=== PATIENT | female | born 1950 | race Caucasian/White ===

== ENCOUNTER 2017-05-24 05:09 | Inpatient (IN) | payer MEDICARE, OTHER ==
[~2017-05-24] VITALS: Ht 172.7 cm; Wt 136.1 kg
[2017-05-24] MEDS ORDERED: PANTOPRAZOLE 40 MG VIAL ONE (05:25)
[2017-05-24] MEDS ORDERED: PANTOPRAZOLE 80 MG in IV NS 0.9% 500 ML IV ONE (05:30)
[2017-05-24] MEDS ORDERED: PANTOPRAZOLE 80 MG in IV NS 0.9% 100 ML IV ONE (05:30)
[2017-05-24] MEDS ORDERED: IV NS 0.9% 1,000 ML BAG IV ONE (05:30)
--- NOTE | 2017-05-24 05:30 | NUR ---
PT RECEIVED FROM [facility] VIA AMBULANCE C/O RECTAL BLEEDING X1 DAY X2 SEPERATE TIMES. PT IS A/O X4 ABLE TO MAKE NEEDS MET. NO SOB NOTED WITH ADEQUATE CHEST RISE/FALL. NO PAIN NOTED AT THIS TIME. WILL CONTINUE TO MONITOR FOR ANY CHANGES.
--- NOTE | 2017-05-24 05:40 | NUR ---
FIRST MATE AT BEDSIDE
[2017-05-24 05:41] LABS: BASOPHILS % (AUTO) 0.4 % (0.0-2.0); EOSINOPHILS # (AUTO) 0.3 /CMM (0.0-0.7); HEMATOCRIT 32 % (33-45); HEMOGLOBIN 9.8 g/dL (11.5-14.8); MEAN CORPUSCULAR HEMOGLOBIN 24 PG (26.0-33.0); MEAN CORPUSCULAR HGB CONC 30 g/dl (31.0-36.0); MEAN CORPUSCULAR VOLUME 80 fL (82-100); MONOCYTES # (AUTO) 0.5 /CMM (0.1-1.30); MONOCYTES % (AUTO) 5.4 % (2.0-12.0); NEUTROPHILS # (AUTO) 7.8 /CMM (1.8-8.9); NEUTROPHILS % (AUTO) 81.2 % (43.0-81.0); PLATELET COUNT (AUTO) 309 /CMM (150-450); RDW COEFFICIENT OF VARIATION 16.3 (11.5-15.0); RED BLOOD CELL COUNT(AUTO) 4.05 MIL/uL (4.0-5.2); WHITE BLOOD COUNT (AUTO) 9.6 K/uL (4.3-11.0)
[2017-05-24 05:50] LABS: ALANINE AMINOTRANSFERASE 32 U/L (12-78); ALBUMIN 2.6 g/dL (3.4-5.0); ALKALINE PHOSPHATASE 115 U/L (46-116); ASPARTATE AMINOTRANSFERASE 19 U/L (15-37); BILIRUBIN,DIRECT 0.1 mg/dL (0.0-0.2); BILIRUBIN,TOTAL 0.2 mg/dL (0.2-1.0); CALCIUM, SERUM 8.7 mg/dL (8.5-10.1); CHLORIDE 96 mmol/L (98-107); CREATININE 0.4 mg/dL (0.6-1.3); GLUCOSE 109 mg/dL (74-106); LIPASE 59 U/L (73-393); POTASSIUM 4.3 mmol/L (3.5-5.1); SODIUM SERUM 138 mmol/L (136-145); TOTAL PROTEIN, SERUM 7.5 g/dL (6.4-8.2); UREA NITROGEN, BLOOD 11 mg/dL (7-18)
[2017-05-24 05:51] LABS: INR 0.92 (0.87-1.13); PROTHROMBIN TIME 9.6 SECS (9.5-12.7)
[2017-05-24 05:52] LABS: TROPONIN I < 0.017 ng/mL (0.00-0.056)
--- NOTE | 2017-05-24 06:03 | NUR ---
PT IS IN STABLE CONDITION. RECEIVING IV MEDICATIONS
--- NOTE | 2017-05-24 06:19 | NUR ---
TELE [id number]
[2017-05-24 06:56] LABS: EOSINOPHILS % (MANUAL) 5 % (0-4); LYMPHOCYTES % (MANUAL) 9 % (16-48); MONOCYTES % (MANUAL) 3 % (0-11.0); NEUTROPHILS % (MANUAL) 83 (42-76)
--- NOTE | 2017-05-24 07:54 | NUR ---
REPORT GIVEN TO ALLIE LANE FOR TELE 307.
[2017-05-24] MEDS ORDERED: BISA10SU8 RC (08:21)
[2017-05-24] MEDS ORDERED: POTA20TA83 PO (08:21)
[2017-05-24] MEDS ORDERED: MULT-447 PO (08:21)
[2017-05-24] MEDS ORDERED: PANT40TA2 PO (08:21)
[2017-05-24] MEDS ORDERED: AMIN30LI4 PO (08:21)
[2017-05-24] MEDS ORDERED: MAGN400O6 PO (08:21)
[2017-05-24] MEDS ORDERED: GABA-532 PO (08:21)
[2017-05-24] MEDS ORDERED: FERR-58 PO (08:21)
[2017-05-24] MEDS ORDERED: ACET-868 PO (08:21)
[2017-05-24] MEDS ORDERED: BUDE10.2 IH (08:21)
[2017-05-24] MEDS ORDERED: FURO20TA4 PO (08:21)
[2017-05-24] MEDS ORDERED: LEVO100T9 PO (08:21)
[2017-05-24] MEDS ORDERED: TRAM50TA2 PO (08:21)
[2017-05-24] MEDS ORDERED: IPRA3AMP IH ×2 (08:21)
[2017-05-24] MEDS ORDERED: DOCU-141 PO (08:21)
[2017-05-24] MEDS ORDERED: CITA20TA11 PO (08:21)
[2017-05-24] MEDS ORDERED: NA P133E RC (08:21)
[2017-05-24] MEDS ORDERED: LORA10TA7 PO (08:21)
[2017-05-24] MEDS ORDERED: CALC-7 PO (08:21)
[2017-05-24] MEDS ORDERED: HYDR-552 PO (08:21)
[2017-05-24 08:45] VITALS: BP 108/49
--- NOTE | 2017-05-24 09:30 | NUR ---
RN NOTES INITIAL; PATIENT RECEIVED FROM ER AT 08:45. PATIENT AOX2, NONLABORED BREATHING ON 3L. NO SIGNS OF DISTRESS. PATIENT DENIES ABDOMINAL PAIN AT THE MOMENT. NO FACIAL GRIMACING NOTED. PATIENT DENIES DIZZINESS, DENIES HEADACHES, PROTONIX IV STARTED IN ER RUNNING AT THE MOMENT, IV SITE ON RIGHT AC, 18 PATENT AND INTACT. DIAPER CHANGED. NO SIGNS OF BLEEDING IN URINE OR STOOLS. PATIENT KEPT NPO. WILL CONTINUE TO MONITOR
--- NOTE | 2017-05-24 09:30 | NUR ---
RN NOTES INITIAL; PATIENT RECEIVED FROM ER AT 08:45. PATIENT AOX2, NONLABORED BREATHING ON 3L. NO SIGNS OF DISTRESS. PATIENT DENIES ABDOMINAL PAIN AT THE MOMENT. NO FACIAL GRIMACING NOTED. PATIENT DENIES DIZZINESS, DENIES HEADACHES, PROTONIX IV STARTED IN ER RUNNING AT THE MOMENT AT 52 ML/HOUR, SPOKE TO ASH FROM PHARMACY REGARDING X1 ORDER STARTED IN ER. IV SITE ON RIGHT AC, 18 PATENT AND INTACT. DIAPER CHANGED. NO SIGNS OF BLEEDING IN URINE OR STOOLS. PATIENT KEPT NPO. WILL CONTINUE TO MONITOR
[2017-05-24 13:38] VITALS: BP 125/65
--- NOTE | 2017-05-24 15:18 | NUR ---
RN NOTES: PATIENT HAS SCARS/ REDNESS ON BOTTOM/SACRAL AREA OF WHAT LOOKS LIKE "OLD RASH" ACCORDING TO PATIENT.SLIGHT BUMPS NOTED, PATIENT STATES THAT IT ITCHES SOMETIMES. HOWEVER, NO OOZING NOTED. DR CHRISTIANSEN NOTIFIED. IV HYDRATION OF 80 ML/HOUR OF NORMAL SALINE ORDERED BY DR CHRISTIANSEN. ACCUCHECKS ORDERED, PATIENT HAS HISTORY OF DIABETES, PATIENT CURRENTLY NPO PATIENT STATES THAT SHE DOES NOT RECEIVE INSULIN AND REFUSES TO. BLOOD SUGAR TO BE MONITORED
--- NOTE | 2017-05-24 15:18 | NUR ---
RN NOTES: PATIENT HAS SCARS/ REDNESS ON BOTTOM/SACRAL AREA OF WHAT LOOKS LIKE "OLD RASH" ACCORDING TO PATIENT.SLIGHT BUMPS NOTED, PATIENT STATES THAT IT ITCHES SOMETIMES. HOWEVER, NO OOZING NOTED. DR CHRISTIANSEN NOTIFIED. DR CHRISTIANSEN ALSO NOTIFIED OF CT OF ABDOMEN/PELVIS BEING DONE AND IMAGE RESULTING IV HYDRATION OF 80 ML/HOUR OF NORMAL SALINE ORDERED BY DR CHRISTIANSEN. ACCUCHECKS ORDERED, PATIENT HAS HISTORY OF DIABETES, PATIENT CURRENTLY NPO PATIENT STATES THAT SHE DOES NOT RECEIVE INSULIN AND REFUSES TO. BLOOD SUGAR TO BE MONITORED
[2017-05-24] MEDS ORDERED: IV NS 0.9% 1,000 ML BAG IV PRN (15:30)
[2017-05-24 16:00] VITALS: BP 128/59
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
[2017-05-24] MEDS ORDERED: Z GUARD REMEDY 2 OZ OINT TP PRN (16:30)
[2017-05-24] MEDS: IV NS 0.9% 1,000 ML IV PRN (16:47)
--- NOTE | 2017-05-24 17:27 | NUR ---
RN NOTES: CODE STATUS ORDERED PER PATIENT'S [facility]'S LEVEL OF RESUSCITATON DOCUMENT, SPOKE WITH THE PATIENT AND SHE CONFIRMED HER WISHES. BENEFITS AND RISKS EXPLAINED AT LENGTH. ACCORDING TO PATIENT AND DOCUMENT, "COMPRESSION OK, MEDS OK, AND DEFIB OK, AND ASSISTED VENTILATION ARE OK" ALSO "NO INTUBATION , NO TUBE FEEDINGS" WELL DR CHRISTIANSEN ORDERED TO ORDER THE CODE STATUS
[2017-05-24] MEDS ORDERED: BLOOD SUGAR DIAGNOSTIC 1 EACH STRIP IN SCH (17:30)
--- NOTE | 2017-05-24 18:39 | NUR ---
RN NOTES CLOSING PATIENT RESTING IN BED. AO 2-3. NO SIGNS OF DISTRESS NOTED. NONLABORED BREATHING NOTED ON 3L NASAL CANNULA. PATIENT DENIES PAIN. NO FACIAL GRIMACING NOTED. IV SITE PATENT AND INTACT, FLUID RUNNING PER MD ORDERS. PATIENT DENIES DIZZINESS, HEADACHES. DENIES ABDOMINAL PAIN. NO DIARRHEA NOTED SINCE ADMISSION ON UNIT. A SCANT AMOUNT OF STOOL WAS NOTED WHEN CLEANING PATIENT. PATIENT ABLE TO PASS GAS, HYPOACTIVE BOWEL SOUNDS NOTED ON ABDOMEN. NO NAUSEA OR VOMITTING NOTED. DURING SHIFT, PATIENT HELPED TO TURNED AND REPOSITION EVERY 2 HOURS, SKIN KEPT CLEAN AND DRY. BED IN LOWEST LOCKED POSITION. CALL LIGHT WITHIN REACH. MARBIN RT NOTIFIED OF BREATHING TREATMENT, SPOKE TO PHARMACY, THEY WILL BE SENDING IT NOW TO THE FLOOR. WILL ENDORSE TO NEXT SHIFT
[2017-05-24] MEDS: BUDESONIDE RESPULE INH 0.25 MG/2 ML AMPUL.NEB NEB SCH (19:27)
--- NOTE | 2017-05-24 19:30 | NUR ---
MS/RN RECEIVE PATIENT DOZING INTERMITTENTLY COMFORTABLE, NO DISTRESS NOTED, CALL LIGHT IN REACH. WILL MONITOR.,
[2017-05-24 20:00] VITALS: BP 112/67
--- NOTE | 2017-05-24 20:42 | NUR ---
MS/RN IV KEEPS ON BEEPING, PATIENT UNABLE TO KEEP ARM STRAIGHT. INSERTED NEW IV AT RT. F/A.
[2017-05-25] MEDS: BLOOD SUGAR DIAGNOSTIC 1 EACH STRIP IN SCH ×5 (01:18→23:53)
[2017-05-25] MEDS: IV NS 0.9% 1,000 ML IV PRN ×2 (05:52→17:07)
--- NOTE | 2017-05-25 06:01 | NUR ---
MS/RN PATIENT STILL SLEEPING, EASILY AROUSABLE, APPEAR COMFORTABLE, NO DISTRESS NOTED, ALL NEEDS ATTENDED AT THIS TIME. WILL CONTINUE TO MONITOR.
[2017-05-25 06:37] LABS: BASOPHILS % (AUTO) 0.4 % (0.0-2.0); EOSINOPHILS # (AUTO) 0.2 /CMM (0.0-0.7); EOSINOPHILS % (AUTO) 1.9 % (0.0-6.0); HEMATOCRIT 30 % (33-45); HEMOGLOBIN 9.4 g/dL (11.5-14.8); LYMPHOCYTES # (AUTO) 0.7 /CMM (0.8-4.8); LYMPHOCYTES % (AUTO) 7.7 % (20.0-44.0); MEAN CORPUSCULAR HEMOGLOBIN 25 PG (26.0-33.0); MEAN CORPUSCULAR HGB CONC 31 g/dl (31.0-36.0); MEAN CORPUSCULAR VOLUME 80 fL (82-100); MONOCYTES # (AUTO) 0.5 /CMM (0.1-1.30); MONOCYTES % (AUTO) 5.2 % (2.0-12.0); NEUTROPHILS # (AUTO) 8.2 /CMM (1.8-8.9); NEUTROPHILS % (AUTO) 84.8 % (43.0-81.0); PLATELET COUNT (AUTO) 279 /CMM (150-450); RDW COEFFICIENT OF VARIATION 16.1 (11.5-15.0); RED BLOOD CELL COUNT(AUTO) 3.74 MIL/uL (4.0-5.2); WHITE BLOOD COUNT (AUTO) 9.6 K/uL (4.3-11.0)
[2017-05-25 06:55] LABS: CALCIUM, SERUM 8.3 mg/dL (8.5-10.1); CREATININE 0.3 mg/dL (0.6-1.3); PHOSPHORUS 3.3 mg/dL (2.5-4.9)
--- NOTE | 2017-05-25 07:15 | NUR ---
RN NOTES PATIENT RESTING IN BED. AOX2 . IV SITE PATENT AND INTACT. DENIES PAIN. NO FACIAL GRIMACING NOTED. NONLABORED BREATHING ON 3L. BED IN LOWEST LOCKED POSITION WITH CALL LIGHT IN REACH. WILL CONTINUE TO MONITOR
[2017-05-25 08:00] VITALS: BP 150/69
[2017-05-25] MEDS: BUDESONIDE RESPULE INH 0.25 MG/2 ML AMPUL.NEB NEB SCH ×2 (08:08→15:46)
[2017-05-25 16:00] VITALS: BP 160/77
--- NOTE | 2017-05-25 16:39 | NUR ---
RN NOTES: DR COLLAZO CAME AND ASSESSED PATIENT. ORDERED TO HAVE PATIENT EATING TODAY. HE ORDERED BISACODYL 5 MG, 4 TIMES, ON 05/26/17. WELL GOLYTELY ON 05/26/17 FOR A BOWEL PREP FOR A POSSIBLE COLONOSCOPY ON Friday05/27/17
[2017-05-25 17:00] VITALS: BP 128/72
--- NOTE | 2017-05-25 19:25 | NUR ---
RN NOTES PATIENT RESTING IN BED. AOX2-3 . IV SITE PATENT AND INTACT. DENIES PAIN. NO FACIAL GRIMACING NOTED. NONLABORED BREATHING ON 3L. BED IN LOWEST LOCKED POSITION WITH CALL LIGHT IN REACH. DURING SHIFT, PATIENT SEEN BY DR CHRSITIANSEN AND DR COLLAZO. PATIENT DENIED SOB, SPO2 WNL, PATIENT EDUCATED ON USAGE OF PRN BREATHING TREATMENT, PATIENT REFUSED. BENEFITS AND RISKS EXPLAINED. CONSENT OBTAINED FOR COLONOSCOPY. PATIENT STATES THAT SHE HAS HAD THIS PROCEDURE BEFORE, PREP DISCUSSED WITH HER, PATIENT VERBALIZED UNDERSTANDING. PATIENT SIGNED CONSENT. PATIENT STATES THAT SHE IS THE RESPONSIBLE [employer] FOR HERSELF. PATIENT ATE DINNER WITH NO DIFFICULTY SWALLOWING, NO NAUSEA NO VOMITTING. ENDORSED TO NEXT SHIFT
--- NOTE | 2017-05-25 19:30 | NUR ---
RN OPENING NOTES PATIENT IS SLEEPING IN BED, ALERT AND ORIENTED X3. VS STABLE. NO SOB NOTED. RESPIRATIONS EVEN AND UNLABORED. NO C/O PAIN AT THIS TIME. PATIENT IS HAVING COLONOSCOPY MAY 27, CONSENT OBTAINED AND SIGNED. IV ACCESS ON RFA PATENT AND INTACT, INFUSING NS AT 80 ML/HR. NO REDNESS OR INFILTRATION NOTED. BED IN LOW AND LOCKED POSITION, SIDE RAILS X2. CALL LIGHT WITHIN EASY REACH. WILL CONTINUE TO MONITOR AND ASSESS DURING THE SHIFT.
[2017-05-25 20:00] VITALS: BP 109/77
[2017-05-26] MEDS: IV NS 0.9% 1,000 ML IV PRN ×2 (05:38→18:32)
[2017-05-26] MEDS: BLOOD SUGAR DIAGNOSTIC 1 EACH STRIP IN SCH ×3 (05:46→17:05)
[2017-05-26 06:50] LABS: EOSINOPHILS # (AUTO) 0.3 /CMM (0.0-0.7); EOSINOPHILS % (AUTO) 2.8 % (0.0-6.0); HEMATOCRIT 29 % (33-45); HEMOGLOBIN 8.9 g/dL (11.5-14.8); LYMPHOCYTES % (AUTO) 9.6 % (20.0-44.0); MEAN CORPUSCULAR HEMOGLOBIN 24 PG (26.0-33.0); MEAN CORPUSCULAR HGB CONC 31 g/dl (31.0-36.0); MEAN CORPUSCULAR VOLUME 79 fL (82-100); MONOCYTES # (AUTO) 0.5 /CMM (0.1-1.30); MONOCYTES % (AUTO) 4.9 % (2.0-12.0); NEUTROPHILS # (AUTO) 8.4 /CMM (1.8-8.9); NEUTROPHILS % (AUTO) 82.7 % (43.0-81.0); PLATELET COUNT (AUTO) 298 /CMM (150-450); RDW COEFFICIENT OF VARIATION 16.4 (11.5-15.0); RED BLOOD CELL COUNT(AUTO) 3.65 MIL/uL (4.0-5.2); WHITE BLOOD COUNT (AUTO) 10.1 K/uL (4.3-11.0)
--- NOTE | 2017-05-26 06:50 | NUR ---
RN CLOSING NOTES PATIENT IS SLEEPING IN BED, EASY TO AROUSE, ALERT AND ORIENTED X3. VS STABLE. NO SOB NOTED. RESPIRATIONS EVEN AND UNLABORED. NO C/O PAIN AT THIS TIME. PATIENT IS HAVING COLONOSCOPY MAY 27, CONSENT OBTAINED AND SIGNED. IV ACCESS ON RFA PATENT AND INTACT, INFUSING NS AT 80 ML/HR. NO REDNESS OR INFILTRATION NOTED. ALL NEEDS ARE MET AND MEDICATIONS GIVEN PER MD ORDER. BED IN LOW AND LOCKED POSITION, SIDE RAILS X2. CALL LIGHT WITHIN EASY REACH. WILL ENDORSE TO RN DAY SHIFT FOR LOLY.
[2017-05-26 07:19] LABS: CALCIUM, SERUM 8.2 mg/dL (8.5-10.1); CREATININE 0.3 mg/dL (0.6-1.3); MAGNESIUM 1.8 mg/dL (1.8-2.4); PHOSPHORUS 2.7 mg/dL (2.5-4.9); POTASSIUM 3.9 mmol/L (3.5-5.1)
--- NOTE | 2017-05-26 07:30 | NUR ---
RN MS NOTES PT IN BED, ASLEEP, EASY TO AROUSE, NO COMPLAINT OF PAIN OR ANY DISCOMFORT, RESPIRATIONS NORMAL AND NOT LABORED, PT TO START COLONOSCOPY PREP, PT INFORMED, PLAN OF CARE DISCUSSED WITH PT, VERBALIZED UNDERSTANDING, IV FLUIDS INFUSING WELL, KEPT COMFORTABLE.
[2017-05-26 08:00] VITALS: BP 145/69
[2017-05-26] MEDS ORDERED: PEG 3350/NA SULF,BICARB,CL/KCL 4,000 ML BOTTLE PO ONE (09:00)
[2017-05-26] MEDS: BUDESONIDE RESPULE INH 0.25 MG/2 ML AMPUL.NEB NEB SCH ×2 (09:00→18:32)
[2017-05-26] MEDS: BISACODYL (5 MG) 5 MG TABLET.DR PO SCH ×5 (09:05→17:05)
[2017-05-26] MEDS ORDERED: ACETAMINOPHEN 325 MG TABLET PO PRN (11:30)
[2017-05-26 12:00] VITALS: BP 136/72
--- NOTE | 2017-05-26 12:02 | NUR ---
RN MS NOTES PT IN BED, ALERT AND ORIENTED, TOLERATING COLONOSCOPY PREP WELL, CALL LIGHT WITHIN REACH, ASSISTED IN REPOSITIONING, NEEDS ATTENDED.
[2017-05-26 16:00] VITALS: BP 149/75
--- NOTE | 2017-05-26 18:39 | NUR ---
RN MS NOTES PT IN BED, AWAKE, ALERT AND ORIENTED, NO COMPLAINT OF PAIN AT THIS TIME, BREATHING PATTERN NORMAL, IV FLUIDS INFUSING WELL, CALL LIGHT WITHIN REACH, WITH ONGOING PREP FOR COLONOSCOPY, NOTED WITH WATERY STOOL WITH SOME BITS AND PIECES OF FOOD PARTICLES, PT COMPLIANT WITH PREP, PM CARE RENDERED, BREATHING TREATMENT GIVEN BY RT, PM CARE RENDERED, ALL NEEDS ATTENDED.
--- NOTE | 2017-05-26 19:30 | NUR ---
RN OPENING NOTES PATIENT IS IN BED, ALERT AND ORIENTEDX3. NO C/O PAIN AT THIS TIME, VS STABLE. NO SOB NOTED, RESPIRATIONS EVEN AND UNLABORED. IV ACCESS ON RAC PATENT AND INTACT, INFUSING NS AT 80 ML/HR, NO REDNESS OR INFILTRATION NOTED. COLONOSCOPY SCHEDULED 05/27/17, CONSENT SIGNED. WITH ONGOING PREPARATION FOR COLONOSCOPY, PT COMPLIANT WITH PREPARATION WELL. BED IN LOW AND LOCKED POSITION, SIDE RAILS X2. CALL LIGHT WITHIN EASY REACH. WILL CONTINUE TO MONITOR AND ASSESS DURING THE SHIFT.
[2017-05-26 20:00] VITALS: BP 138/70
[2017-05-27] MEDS: BLOOD SUGAR DIAGNOSTIC 1 EACH STRIP IN SCH ×4 (00:34→17:52)
[2017-05-27] MEDS: IV NS 0.9% 1,000 ML IV PRN (05:40)
--- NOTE | 2017-05-27 05:42 | NUR ---
RN NOTES PATIENT REFUSED TO DRAW THE BLOOD. CONTINUE TO MONITOR.
--- NOTE | 2017-05-27 06:49 | NUR ---
RN CLOSING NOTES PATIENT IS SLEEPING IN BED, EASY TO AROUSE, ALERT AND ORIENTEDX3. VS STABLE. NO SOB NOTED, RESPIRATIONS EVEN AND UNLABORED. IV ACCESS ON RAC PATENT AND INTACT, INFUSING NS AT 80 ML/HR, NO REDNESS OR INFILTRATION NOTED. COLONOSCOPY SCHEDULED 05/27/17, CONSENT SIGNED. PATIENT IS NPO SINCE MIDNIGHT. ALL NEEDS ARE MET, PATIENT REPOSITIONED. SKIN CLEAN AND DRY. BED IN LOW AND LOCKED POSITION, SIDE RAILS X2. CALL LIGHT WITHIN EASY REACH. WILL ENDORSE TO RN DAY SHIFT FOR LOLY.
[2017-05-27 08:00] VITALS: BP 166/79
--- NOTE | 2017-05-27 08:00 | NUR ---
RN NOTES RECEIVED PATIENT AT THIS TIME SLEEPING, AROUSE WHEN CALLED NAME OR TOUCHED, V/S TAKEN STABLE, NO ACUTE RESPIRATORY DISTRESS, PATIENT ON O2-3L NC, NPO, SCHEDULED EGD PROCEDURE AT 1000 O'CLOCK, IV LINE RIGHT FA INTACT NS AT 80 ML/HR. PATIENT REFUSED PAIN AT THIS TIME, CALL LIGHT WITHIN TO REACH, SAFETY PRECAUTION MAINTAINED ALL THE TIME. CONTINUED MONITORING.
[2017-05-27] MEDS: BUDESONIDE RESPULE INH 0.25 MG/2 ML AMPUL.NEB NEB SCH ×2 (08:04→18:02)
[2017-05-27] MEDS: IPRATROPIUM NEB FS 0.5 MG/2.5 ML AMPUL.NEB NEB PRN ×2 (08:07→18:03)
[2017-05-27] MEDS: ALBUTEROL FS 2.5 MG/0.5 ML VIAL.NEB NEB PRN ×2 (08:07→18:03)
--- NOTE | 2017-05-27 10:00 | NUR ---
RN NOTES PATIENT MIG TIG WELDER AT THIS TIME FOR EGD PROCEDURE.
[2017-05-27] MEDS ORDERED: ETOMIDATE 2 MG/ML VIAL ONE (11:12)
[2017-05-27] MEDS ORDERED: IV NS 0.9% 1,000 ML IV PRN (12:30)
--- NOTE | 2017-05-27 14:00 | NUR ---
RN NOTES PATIENT BACK FROM PROCEDURE, MD WRITTEN ORDER TAKEN AND CARRIED OUR, V/S TAKEN BP -161/82, P-88, R-17, 02 90, T-98.5, REGULAR DIET, NS AT 100 ML/HR, RESUME ORDERED MEDICATION. CA;LL LIGHT WITHIN TO REACH, SAFETY PRECAUTION MAINTAINED AL THE TIME, BS- 107MG/DL. CONTINUED MONITORING.
[2017-05-27 16:00] VITALS: BP 149/71
--- NOTE | 2017-05-27 17:52 | NUR ---
RN NOTES BS-112 MG/DL, PATIENT EATING AT THIS TIME , PATIENT GOING TO D/C BACK TO SNF. CONTINUED MONITORING.
--- NOTE | 2017-05-27 18:52 | NUR ---
RN NOTES PATIENT IN THE BED. NO ACUTE DISTRESS, NO RESPIRATORY DISTRESS AT THIS TIME., PATIENT GOING TO D/C [facility], V/S STABLE. NEEDS ATTENDED AND ANTICIPATED. SAFETY PRECAUTION MAINTAINED ALL THE TIME. ENDORSED ONCOMING NURSE FOR CONTINUATION OF CARE.
--- NOTE | 2017-05-27 19:15 | NUR ---
MS/RN NOTES RECEIVED PT. LYING IN BED. PT. IS AWAKE, ALERT AND ORIENTED X3. BREATHING EVEN AND UNLABORED ON 2LPM O2 VIA NC. NO SOB, RESPIRATORY DISTRESS OR COMPLAINTS OF PAIN NOTED AT THIS TIME. PT. WITH RIGHT AC 18 GAUGE IV SALINE LOCK PRESENT, PATENT AND INTACT. PT. WITH RIGHT FOREARM 22 GAUGE PERIPHERAL IV PRESENT, PATENT AND INTACT ADMINISTERING TO PT. NS @ 100ML/HR. PER DAYSHIFT NURSE PT. IS BEING DISCHARGED TONIGHT TO [facility], AWAITING PICKUP FROM AMBULANCE AT 1999. PER DAYSHIFT NURSE ALL PT. EXITCARE AND BELONGINGS LIST SIGNED, ORIGINAL PLACED IN CHART. BED LOCKED AND IN LOWEST POSITION, SIDE RAILS UP X3, CALL LIGHT WITHIN REACH, WILL CONTINUE TO MONITOR.
--- NOTE | 2017-05-27 19:30 | NUR ---
RN NOTES GIVEN REPORT [employer] ENGINEERING TECHNOLOGIST NAME VERONIQUE, PATIENT SIGN PAPERWORK.
[2017-05-27 20:00] VITALS: BP 145/72
--- NOTE | 2017-05-27 20:00 | NUR ---
MS/RN NOTES DISPATCHER ELECTRIC POWER RECEIVED CALL FROM AMBULANCE THAT THEY ARE RUNNING LATE, ETA 2100. PT. IS LYING IN BED, APPEARS COMFORTABLE AT THIS TIME, WILL CONTINUE TO MONITOR.
[2017-05-27 20:26] LABS: BASOPHILS % (AUTO) 0.2 % (0.0-2.0); CALCIUM, SERUM 8.1 mg/dL (8.5-10.1); CREATININE 0.4 mg/dL (0.6-1.3); EOSINOPHILS # (AUTO) 0.1 /CMM (0.0-0.7); EOSINOPHILS % (AUTO) 1.4 % (0.0-6.0); HEMATOCRIT 29 % (33-45); HEMOGLOBIN 9.2 g/dL (11.5-14.8); LYMPHOCYTES # (AUTO) 0.9 /CMM (0.8-4.8); LYMPHOCYTES % (AUTO) 8.4 % (20.0-44.0); MAGNESIUM 1.6 mg/dL (1.8-2.4); MEAN CORPUSCULAR HEMOGLOBIN 24 PG (26.0-33.0); MEAN CORPUSCULAR HGB CONC 32 g/dl (31.0-36.0); MEAN CORPUSCULAR VOLUME 78 fL (82-100); MONOCYTES # (AUTO) 0.8 /CMM (0.1-1.30); MONOCYTES % (AUTO) 7.3 % (2.0-12.0); NEUTROPHILS # (AUTO) 8.6 /CMM (1.8-8.9); NEUTROPHILS % (AUTO) 82.7 % (43.0-81.0); PHOSPHORUS 3.5 mg/dL (2.5-4.9); PLATELET COUNT (AUTO) 325 /CMM (150-450); POTASSIUM 3.3 mmol/L (3.5-5.1); RDW COEFFICIENT OF VARIATION 14.9 (11.5-15.0); RED BLOOD CELL COUNT(AUTO) 3.75 MIL/uL (4.0-5.2); WHITE BLOOD COUNT (AUTO) 10.4 K/uL (4.3-11.0)
--- NOTE | 2017-05-27 20:45 | NUR ---
MS/RN NOTES CALLED [facility] COLD MOLDING PRESS OPERATOR TO REPORT CRITICAL LAB VALUE: CO2 43, AND LOW ELECTROLYTES K 3.3 AND MG 1.6 PT. IS ON 2LPM O2 VIA NC, HISTORY OF COPD, NO SOB OR RESPIRATORY DISTRESS NOTED AT THIS TIME, VITAL SIGNS STABLE. PER [facility] COLD MOLDING PRESS OPERATOR SERVICE KAYLAN NAQVI IS COLD MOLDING PRESS OPERATOR TONIGHT AND SHE WILL BE PAGED. AWAITING CALL FROM KAYLAN JIN. WILL CONTINUE TO MONITOR.
--- NOTE | 2017-05-27 20:58 | NUR ---
MS/RN NOTES RECEIVED CALL FROM [employer] DIRECTOR PARK VEST FINISHER ANNABEL. NOTIFIED ANNABEL OF PT. CRITICAL LAB CO2 - 43 AND K 3.3, MG 1.6. PER VEST FINISHER ANNABEL NO INTERVENTION NEEDED FOR CO2 LEVEL, PT. VITAL SIGNS STABLE NO SOB OR RESPIRATORY DISTRESS. PER VEST FINISHER ANNABEL NEW ORDERS: KDUR 40 MEQ PO X1 AND MAGNESIUM OXIDE 400MG PO X1, PER VEST FINISHER ANNABEL ADMINISTER MEDICATIONS TO PT. BEFORE DISCHARGE, PT. IS STILL STABLE AND READY TO D/C. WILL CARRY OUT ORDERS. WILL CONTINUE TO MONITOR.
[2017-05-27] MEDS ORDERED: POTASSIUM CHLORIDE 20 MEQ TAB.PRT.SR PO ONE (21:00)
[2017-05-27] MEDS ORDERED: MAGNESIUM OXIDE 400 MG TABLET PO ONE (21:00)
--- NOTE | 2017-05-27 22:20 | NUR ---
MS/RN NOTES PT. IS LYING IN BED. AWAKE, ALERT AND ORIENTED X3. BREATHING EVEN AND UNLABORED ON 2LPM O2 VIA NC. NO SOB, RESPIRATORY DISTRESS OR COMPLAINTS OF PAIN NOTED AT THIS TIME. PT. VITAL SIGNS STABLE. PT. DISCHARGE PAPERWORK AND BELONGINGS LIST SIGNED, ORIGINAL PLACED IN PT. CHART, COPY PROVIDED TO EMT'S. REMOVED PT. IV ACCESS, NO BLEEDING OR S/S OF INFECTION NOTED AT IV SITE. PT. LEFT THE FLOOR VIA GURNEY ACCOMPANIED BY EMT'S AT 2220.
[2017-05-27 23:20] LABS: BAND % (MANUAL) 3 % (0.0-5.0); EOSINOPHILS % (MANUAL) 2 % (0-4); LYMPHOCYTES % (MANUAL) 10 % (16-48); MONOCYTES % (MANUAL) 5 % (0-11.0); NEUTROPHILS % (MANUAL) 80 (42-76)
== END 2017-05-27 22:20 | DRG 377 ==
LOC: ER 05:12 → TELE 06:36 → MED 10:00
PROVIDERS: ADMIT Internal Medicine; ATTEND Internal Medicine
PROC: 0DDE8ZX Extraction of Large Intestine, Via Natural or Artificial Opening Endoscopic, Diagnostic (ICD-10-PCS; principal; 2017-05-27 10:30)
DX: K57.91 Diverticulosis of intestine, part unspecified, without perforation or abscess with bleeding (principal); R53.2 Functional quadriplegia; E44.0 Moderate protein-calorie malnutrition; D68.59 Other primary thrombophilia; D62 Acute posthemorrhagic anemia; E66.01 Morbid (severe) obesity due to excess calories; E88.81 Metabolic syndrome and other insulin resistance; K62.5 Hemorrhage of anus and rectum; N20.0 Calculus of kidney; I10 Essential (primary) hypertension; J44.9 Chronic obstructive pulmonary disease, unspecified; E11.9 Type 2 diabetes mellitus without complications; E03.9 Hypothyroidism, unspecified; D64.9 Anemia, unspecified; Z91.018 Allergy to other foods; Z91.048 Other nonmedicinal substance allergy status; K29.70 Gastritis, unspecified, without bleeding
CPT/HCPCS: 36415; 71010-TC; 80048-TC; 80076-TC; 82962-TC; 83690-TC; 83735-TC; 84100-TC; 84484-TC; 85025-TC; 85730-TC; 86850-TC; 87081-TC; 88305-TC; 94799-TC; A4216; C9113; J3490; J7030; J7040; Z7610

== ENCOUNTER 2019-06-18 08:50 | Inpatient (IN) | payer MEDICARE, OTHER ==
[~2019-06-18] VITALS: Ht 172.7 cm; Wt 117.9 kg
[~2019-06-18 08:50] MED LIST: ACET-868 PO; AMIN30LI4 PO; BISA10SU11 RC; BUDE10.2 IH; CALC-7 PO; CITA20TA16 PO; DOCU-141 PO; FERR325T23 PO; FURO20TA4 PO; GABA-532 PO; HYDR-4384 PO; IPRA3AMP23 IH; LEVO100T9 PO; LORA10TA7 PO; MAGN400O6 PO; MULT-447 PO; NA P133E RC; PANT40TA2 PO; POTA20TA83 PO; TRAM50TA2 PO
[2019-06-18] MEDS ORDERED: CLON0.1T PO (09:00)
[2019-06-18] MEDS ORDERED: CHOL200026 PO (09:00)
[2019-06-18] MEDS ORDERED: ALBU2.5V38 IH (09:00)
[2019-06-18] MEDS ORDERED: ATOR10TA PO (09:00)
[2019-06-18] MEDS ORDERED: OMEG-88 PO (09:00)
[2019-06-18] MEDS ORDERED: ASCO500T9 PO (09:00)
[2019-06-18] MEDS ORDERED: ALBUTEROL FS 2.5 MG/3 ML VIAL.NEB CONTNEB ONE (09:00)
[2019-06-18] MEDS ORDERED: POLY15DR40 EACHEYE (09:00)
[2019-06-18] MEDS ORDERED: ALBUTEROL FS 2.5 MG/3 ML VIAL.NEB NEB ONE (09:00)
[2019-06-18] MEDS ORDERED: methylPREDNISolone SOD SUCC 125 MG/2ML VIAL IV ONE (09:00)
[2019-06-18] MEDS ORDERED: IPRATROPIUM NEB FS 0.5 MG/2.5 ML AMPUL.NEB NEB ONE (09:00)
[2019-06-18] MEDS ORDERED: ACET-2605 PO (09:00)
[2019-06-18] MEDS ORDERED: LUBI24CA5 PO (09:00)
[2019-06-18] MEDS ORDERED: methylPREDNISolone SOD SUCC 125 MG/2ML VIAL ONE (09:03)
[2019-06-18 09:07] LABS: BASOPHILS # (AUTO) 0.1 /CMM (0.0-0.2); BASOPHILS % (AUTO) 0.4 % (0.0-2.0); HEMATOCRIT 44 % (33-45); LYMPHOCYTES # (AUTO) 0.9 /CMM (0.8-4.8); LYMPHOCYTES % (AUTO) 4.3 % (20.0-44.0); MEAN CORPUSCULAR HGB CONC 32 g/dl (31.0-36.0); MEAN CORPUSCULAR VOLUME 84 fL (82-100); MONOCYTES # (AUTO) 1.3 /CMM (0.1-1.30); MONOCYTES % (AUTO) 6.2 % (2.0-12.0); NEUTROPHILS # (AUTO) 18.6 /CMM (1.8-8.9); NEUTROPHILS % (AUTO) 89.1 % (43.0-81.0); PLATELET COUNT (AUTO) 333 /CMM (150-450); RED BLOOD CELL COUNT(AUTO) 5.19 MIL/uL (4.0-5.2); WHITE BLOOD COUNT (AUTO) 20.9 K/uL (4.3-11.0)
[2019-06-18] MEDS ORDERED: ALBUTEROL FS 2.5 MG/3 ML VIAL.NEB ONE (09:11)
[2019-06-18] MEDS ORDERED: IPRATROPIUM NEB FS 0.5 MG/2.5 ML AMPUL.NEB ONE (09:11)
[2019-06-18 09:13] LABS: CREATININE 0.6 mg/dL (0.6-1.3); POTASSIUM 3.8 mmol/L (3.5-5.1)
--- NOTE | 2019-06-18 09:26 | NUR ---
DR. JJ MENDOZA ON-CALL.
[2019-06-18 09:28] LABS: ALBUMIN 3.1 g/dL (3.4-5.0); BILIRUBIN,DIRECT 0.1 mg/dL (0.0-0.2); BILIRUBIN,TOTAL 0.3 mg/dL (0.2-1.0); TOTAL PROTEIN, SERUM 8.9 g/dL (6.4-8.2)
--- NOTE | 2019-06-18 09:51 | NUR ---
NURSING SUP GAVE JUSTINE BED 102.
--- NOTE | 2019-06-18 09:55 | NUR ---
PAGED [facility].
[2019-06-18] MEDS ORDERED: CEFTRIAXONE 1GM BAG (ER ONLY) 1 GM/50 ML PIGGYBACK IV ONE (10:00)
[2019-06-18] MEDS ORDERED: CEFTRIAXONE 1GM BAG (ER ONLY) 50 ML IV ONE (10:04)
--- NOTE | 2019-06-18 10:07 | NUR ---
report given to jorge luis. awaiting transfer to floor.
--- NOTE | 2019-06-18 10:25 | NUR ---
JUSTINE RN OPENING NOTES RECEIVED PATIENT FROM ER, [facility] PATIENT IS AOX 0, UNRESPONSIVE, WITHDRAWS FROM PAIN. PATIENT IS ON CPAP RUNNING AT PRESCRIBED SETTINGS. CODE STATUS DNR/DNI. ABGS DONE BY RESPIRATORY, PULMONARY DR IS AWARE OF THE RESULTS. SKIN IS INTACT. IV ON RIGHT WRIST 18GAUGE, INTACT, PATENT AND FLUSHED WELL. SAFETY MAINTAINED, CALL LIGHT WITHIN REACH, WILL CONTINUE TO MONITOR.
[2019-06-18] MEDS ORDERED: Z GUARD REMEDY 2 OZ OINT TP PRN (11:00)
[2019-06-18] MEDS ORDERED: ZOLPIDEM TARTRATE 5 MG TABLET PO PRN (11:00)
[2019-06-18] MEDS ORDERED: HYDROCODONE/APAP 5/325MG 1 EACH TABLET PO PRN (11:00)
[2019-06-18] MEDS ORDERED: CLONIDINE HCL 0.1 MG TABLET PO PRN (11:00)
[2019-06-18] MEDS ORDERED: ACETAMINOPHEN 325 MG TABLET PO PRN (11:00)
[2019-06-18] MEDS ORDERED: MAG HYDROX/AL HYDROX/SIMETH 30 ML UDC PO PRN (11:00)
[2019-06-18] MEDS ORDERED: MAGNESIUM HYDROXIDE 30 ML UDC PO PRN (11:00)
[2019-06-18] MEDS ORDERED: ONDANSETRON HCL/PF 4 MG/2 ML VIAL IVP PRN (11:00)
[2019-06-18] MEDS: CHOLECALCIFEROL 1,000 UNIT TABLET (VIT D3) PO SCH (11:30)
[2019-06-18] MEDS: PANTOPRAZOLE 40 MG TABLET.DR PO SCH (11:30)
[2019-06-18 11:50] LABS: ABG BASE EXCESS 8.7 mmol/L; ABG OXYGEN SATURATION 94.8 % (92.0-98.5); ABG PCO2 132.1 mmHg (35.0-45.0); ABG PH 7.131 (7.350-7.450); ABG PO2 90.4 mmHg (75.0-100.0); AaDO2 154.8 mmHg; COHb 0.8 % (0.5-1.5); MetHb 0.6 % (0.0-1.5); O2Hb 93.5 % (94.0-97.0); SITE, ABG Right Radial
[2019-06-18] MEDS: ALBUTEROL FS 2.5 MG/3 ML VIAL.NEB NEB SCH ×4 (11:53→22:57)
[2019-06-18] MEDS: IPRATROPIUM NEB FS 0.5 MG/2.5 ML AMPUL.NEB NEB SCH ×4 (11:53→22:57)
[2019-06-18 12:00] VITALS: BP 135/67
[2019-06-18] MEDS: POLYVINYL ALCOHOL 15 ML BOTTLE EACHEYE SCH ×2 (13:52→16:51)
[2019-06-18] MEDS: ENOXAPARIN SODIUM 40 MG/0.4 ML DISP.SYRIN SQ SCH (13:54)
[2019-06-18 14:01] LABS: ABG BASE EXCESS 10.2 mmol/L; ABG OXYGEN SATURATION 91.4 % (92.0-98.5); ABG PCO2 127.7 mmHg (35.0-45.0); ABG PH 7.159 (7.350-7.450); ABG PO2 70.6 mmHg (75.0-100.0); AaDO2 142.2 mmHg; COHb 0.9 % (0.5-1.5); MetHb 0.4 % (0.0-1.5); O2Hb 90.2 % (94.0-97.0); SITE, ABG Right Radial; VENT MODE, BG ST 25/5 BUR 16 50%
[2019-06-18 16:00] VITALS: BP 116/60
[2019-06-18] MEDS: GABAPENTIN 100 MG CAPSULE PO SCH (16:51)
[2019-06-18] MEDS ORDERED: MISCELLANEOUS MED 1 EA EA PO SCH (17:00)
--- NOTE | 2019-06-18 19:25 | NUR ---
JUSTINE/RN notes. Patient received in bed, Eyes closed, Arousable with deep pain. A/O x 0. Breathing even and unlabored. No SOB noted. Patient on continues BIPAP with prescribed settings. In no acute distress. no S/S of pain at this time, no facial grimacing noted. IV site with no S/S of infection/ Infiltration. Safety maintained, bed at the lowest, locked position. Call light within reach. On tele monitor with Sinus rhythm. Will continue to monitor as per plan of care.
--- NOTE | 2019-06-18 19:33 | NUR ---
RN CLOSING NOTES ENDORSED PATIENT TO LOG CHAIN FEEDER NURSE. PATIENT IS ON THE CPAP MACHINE WITH SETTING ORDERED. DNR/DNI SO CANNOT BE INTUBATED. ABG ARE DONE AND IS AWARE OF THE RESULTS. WILL REPEAT THE TEST IN THE MORNING. PATIENT IS A/O X0, RESPONDS TO PAIN STIMULI ONLY. SKIN REMAINED INTACT, PATIENT KEPT CLEAN AND DRY. IV SITE REMAINED INTACT. PATENT AND FLUSHED WELL. PATIENT SAFETY WAS MAINTAINED, CALL LIGHT WITHIN REACH. ENDORSED TO LOG CHAIN FEEDER NURSE TO CONTINUE CARE.
[2019-06-18 20:00] VITALS: BP 103/55
[2019-06-18] MEDS: ATORVASTATIN 10 MG TABLET PO SCH (21:02)
[2019-06-18] MEDS: DOCUSATE SODIUM 100 MG CAPSULE PO SCH (21:02)
--- NOTE | 2019-06-18 21:02 | NUR ---
Colace and Lipitor not given as ordered due to patient on continue BIPAP, lethargic
--- NOTE | 2019-06-18 21:56 | NUR ---
Labs called at this time with critical Lab results for Troponin trending down from 0.768 to now 0.499. Carlos Navarro made aware.
[2019-06-19] VITALS: BP 95/63
--- NOTE | 2019-06-19 00:30 | NUR ---
Patient is more awake, open eyes, A/O x 1, requesting for water. patient has diet order, but patient still lethargic. Nursing eval for swallowing performed, HOB elevated to high mcclendon position and given ice chips. Patient started caughing. Stop further nursing Eval. Called DATA BASE ADMINISTRATOR Carlos Navarro, relayed patient condition. Carlos Navarro denied for any IV fluids and asked me to keep monitoring her. Keep her NPO. Noted
[2019-06-19] MEDS: ALBUTEROL FS 2.5 MG/3 ML VIAL.NEB NEB SCH ×6 (03:13→23:29)
[2019-06-19] MEDS: IPRATROPIUM NEB FS 0.5 MG/2.5 ML AMPUL.NEB NEB SCH ×6 (03:13→23:29)
[2019-06-19 04:00] VITALS: BP 102/51
--- NOTE | 2019-06-19 07:00 | NUR ---
RN INITIAL NOTE PATIENT IN BED, AWAKE AND ALERT. ON CONTINUOUS BIPAP. SATING WELL AT 96%. PATIENT IS CURRENTLY NPO DUE TO FAILED NURSING SWALLOW EVAL PER NOC SHIFT. PATIENT ASKING FOR ICE CHIPS. WILL REEVALUATE PATIENT TODAY. ON TELE MONITOR, HAS A LEFT WRIST #18, SL. NO COMPLAINS OF ANY PAIN NOR SOB AT THIS TIME. BED LOCKED AND IN LOWEST POSITION. CALL LIGHT WITHIN REACH. WILL CONTINUE TO MONITOR
--- NOTE | 2019-06-19 07:01 | NUR ---
JUSTINE/RN notes. Patient remained in bed, Breathing even and unlabored. No SOB noted. Patient on continues BIPAP with prescribed settings. In no acute distress. no S/S of pain at this time, no facial grimacing noted. IV site with no S/S of infection/ Infiltration. Safety maintained, bed at the lowest, locked position. Call light within reach. On tele monitor with Sinus rhythm. Will Endorse to AM shift nurse for LOLY.
[2019-06-19 08:00] VITALS: BP 93/58
[2019-06-19 08:13] LABS: BASOPHILS % (AUTO) 0.2 % (0.0-2.0); HEMATOCRIT 38 % (33-45); HEMOGLOBIN 12.2 g/dL (11.5-14.8); LYMPHOCYTES # (AUTO) 0.8 /CMM (0.8-4.8); LYMPHOCYTES % (AUTO) 3.7 % (20.0-44.0); MEAN CORPUSCULAR HGB CONC 32 g/dl (31.0-36.0); MEAN CORPUSCULAR VOLUME 83 fL (82-100); MONOCYTES # (AUTO) 1.4 /CMM (0.1-1.30); MONOCYTES % (AUTO) 6.6 % (2.0-12.0); NEUTROPHILS # (AUTO) 19.6 /CMM (1.8-8.9); NEUTROPHILS % (AUTO) 89.5 % (43.0-81.0); PLATELET COUNT (AUTO) 292 /CMM (150-450); RED BLOOD CELL COUNT(AUTO) 4.59 MIL/uL (4.0-5.2); WHITE BLOOD COUNT (AUTO) 21.9 K/uL (4.3-11.0)
[2019-06-19 08:15] LABS: ABG BASE EXCESS 13.4 mmol/L; ABG OXYGEN SATURATION 95.3 % (92.0-98.5); ABG PCO2 66.5 mmHg (35.0-45.0); ABG PH 7.408 (7.350-7.450); ABG PO2 75.7 mmHg (75.0-100.0); COHb 0.5 % (0.5-1.5); MetHb 0.4 % (0.0-1.5); O2Hb 94.4 % (94.0-97.0); SITE, ABG Left Radial; VENT MODE, BG BIPAP IPAP 25 EPAP 5
[2019-06-19 08:34] LABS: CALCIUM, SERUM 8.9 mg/dL (8.5-10.1); CREATININE 0.7 mg/dL (0.6-1.3); MAGNESIUM 2.3 mg/dL (1.8-2.4); PHOSPHORUS 4.1 mg/dL (2.5-4.9); POTASSIUM 4.7 mmol/L (3.5-5.1)
[2019-06-19] MEDS ORDERED: EPA PO SCH (09:00)
[2019-06-19] MEDS ORDERED: DHA PO SCH (09:00)
[2019-06-19] MEDS ORDERED: FISH OIL PO SCH (09:00)
[2019-06-19] MEDS ORDERED: OMEGA PO SCH (09:00)
[2019-06-19] MEDS: LEVOTHYROXINE SODIUM 100 MCG TABLET PO SCH (10:52)
[2019-06-19] MEDS: GABAPENTIN 100 MG CAPSULE PO SCH ×2 (10:53→17:30)
[2019-06-19] MEDS: FERROUS SULFATE (325 MG) 325 MG/TAB TABLET PO SCH (10:53)
[2019-06-19] MEDS: FUROSEMIDE 20 MG TABLET PO SCH (10:53)
[2019-06-19] MEDS: MULTIVIT W/MINERALS 1 TAB TABLET PO SCH (10:53)
[2019-06-19] MEDS: methylPREDNISolone SOD SUCC 125 MG/2ML VIAL IV SCH (10:53)
[2019-06-19] MEDS: PANTOPRAZOLE 40 MG TABLET.DR PO SCH (10:54)
[2019-06-19] MEDS: POTASSIUM CHLORIDE 20 MEQ TAB.PRT.SR PO SCH (10:54)
[2019-06-19] MEDS: CITALOPRAM HYDROBROMIDE 20 MG TABLET PO SCH (10:57)
[2019-06-19] MEDS: CHOLECALCIFEROL 1,000 UNIT TABLET (VIT D3) PO SCH (10:58)
[2019-06-19] MEDS: ASCORBIC ACID 500 MG TABLET PO SCH (10:59)
[2019-06-19] MEDS: ENOXAPARIN SODIUM 40 MG/0.4 ML DISP.SYRIN SQ SCH (11:00)
[2019-06-19] MEDS: POLYVINYL ALCOHOL 15 ML BOTTLE EACHEYE SCH ×3 (11:06→17:30)
[2019-06-19] MEDS: AZITHROMYCIN 500 MG in IV D5W 250 ML IV SCH (11:15)
[2019-06-19 12:00] VITALS: BP 101/58
[2019-06-19 12:42] LABS: ABG BASE EXCESS 9.7 mmol/L; ABG OXYGEN SATURATION 87.4 % (92.0-98.5); ABG PCO2 60.2 mmHg (35.0-45.0); ABG PH 7.402 (7.350-7.450); ABG PO2 53.6 mmHg (75.0-100.0); AaDO2 104.1 mmHg; MetHb 0.4 % (0.0-1.5); O2Hb 86.2 % (94.0-97.0); SITE, ABG Right Radial; VENT MODE, BG 3 L/M via NC
--- NOTE | 2019-06-19 15:21 | NUR ---
STRIKE PLANNING APPLICATIONS NOTES PATIENT MIDLINE INSERTED KENNETH. 18# PATENT AND INTACT.
[2019-06-19 16:00] VITALS: BP 120/67
--- NOTE | 2019-06-19 19:30 | NUR ---
NUTRITIONAL ASSISTANT NOTES CLOSING PATIENT IS IN BED WATCH TV . AWAKE A/O X4 PATIENT IS ALERT. PATIENT IS CURRENTLY ON 3LPM OXYGEN. PATIENT HAS A NON PRODUCTIVE COUGH. PATIENT CURRENTLY HAS A 18G MIDLINES PATIENT IS ON TELE MONITOR SR/ST AM CARE PROVIDED. PATIENT TURNED Q2H . BED LOCKED LOWEST POSITION CALL LIGHT WITH IN REACH ALL SAFETY MEASURE IMPLEMENTED PER HOSPITAL POLICY. ENDORSED TO PM SHIFT
[2019-06-19 20:00] VITALS: BP 108/63
--- NOTE | 2019-06-19 20:00 | NUR ---
RN NOTES PATIENT ALERT AND ORIENTED X4, STABLE ON 3LPM VIA NC, NO COMPLAIN OF PAIN AT THIS TIME, DRINKING THIN LIQUID WITHOUT DIFFICULTY, INCONTINENT OF BOWEL AND BLADDER, KENNETH MIDLINE PATENT AND SECURED WITH DRESSING, KEPT SAFE, CALL LIGHT WITHIN REACH
[2019-06-19] MEDS: ATORVASTATIN 10 MG TABLET PO SCH (21:33)
[2019-06-19] MEDS: DOCUSATE SODIUM 100 MG CAPSULE PO SCH (21:33)
[2019-06-20] VITALS: BP 123/61
[2019-06-20] MEDS: ALBUTEROL FS 2.5 MG/3 ML VIAL.NEB NEB SCH ×6 (02:37→23:18)
[2019-06-20] MEDS: IPRATROPIUM NEB FS 0.5 MG/2.5 ML AMPUL.NEB NEB SCH ×6 (02:37→23:18)
[2019-06-20 04:00] VITALS: BP 125/62
--- NOTE | 2019-06-20 06:06 | NUR ---
RN NOTES PATIENT ALERT AND AWAKE, NO RESPIRATORY DISTRESS DURING SHIFT, HAD ALL BREATHING TREATMENT SCHEDULED, MONITOR FOR GI BLEED, WBC ELEVATED, PER MD, LIKELY FROM COPD EXACERBATION + STEROIDS, MONITOR H/H
--- NOTE | 2019-06-20 06:07 | NUR ---
RN NOTES PATIENT LOOKING FOR WATCH, PER INVENTORY NO WATCH ON ADMISSION, SEE INVENTORY LIST
[2019-06-20 06:31] LABS: BASOPHILS % (AUTO) 0.1 % (0.0-2.0); HEMATOCRIT 35 % (33-45); HEMOGLOBIN 11.2 g/dL (11.5-14.8); LYMPHOCYTES % (AUTO) 6.6 % (20.0-44.0); MEAN CORPUSCULAR HGB CONC 32 g/dl (31.0-36.0); MEAN CORPUSCULAR VOLUME 83 fL (82-100); MONOCYTES # (AUTO) 0.8 /CMM (0.1-1.30); MONOCYTES % (AUTO) 4.9 % (2.0-12.0); NEUTROPHILS # (AUTO) 13.9 /CMM (1.8-8.9); NEUTROPHILS % (AUTO) 88.4 % (43.0-81.0); PLATELET COUNT (AUTO) 301 /CMM (150-450); RED BLOOD CELL COUNT(AUTO) 4.22 MIL/uL (4.0-5.2); WHITE BLOOD COUNT (AUTO) 15.7 K/uL (4.3-11.0)
[2019-06-20 06:45] LABS: CALCIUM, SERUM 8.4 mg/dL (8.5-10.1); CREATININE 0.4 mg/dL (0.6-1.3); POTASSIUM 4.6 mmol/L (3.5-5.1)
--- NOTE | 2019-06-20 07:43 | NUR ---
JUSTINE RN NOTE Patient is in bed alert and oriented x3, 02 Sat is 95% on 3L NC, TAYO Midline intact and flushes well and dressing intact, no SOB noted at this time. Plan of care has been discussed with patient, call light within reach, bed in lowest position and locked. On isolation for contact MRSA for hospital protocol. Will continue to monitor. Patient capable of eating by herself.
[2019-06-20 08:00] VITALS: BP 108/63
[2019-06-20] MEDS: CITALOPRAM HYDROBROMIDE 20 MG TABLET PO SCH (08:03)
[2019-06-20] MEDS: FERROUS SULFATE (325 MG) 325 MG/TAB TABLET PO SCH (08:03)
[2019-06-20] MEDS: FUROSEMIDE 20 MG TABLET PO SCH (08:03)
[2019-06-20] MEDS: methylPREDNISolone SOD SUCC 125 MG/2ML VIAL IV SCH (08:03)
[2019-06-20] MEDS: ASCORBIC ACID 500 MG TABLET PO SCH (08:04)
[2019-06-20] MEDS: CHOLECALCIFEROL 1,000 UNIT TABLET (VIT D3) PO SCH (08:04)
[2019-06-20] MEDS: MULTIVIT W/MINERALS 1 TAB TABLET PO SCH (08:04)
[2019-06-20] MEDS: POTASSIUM CHLORIDE 20 MEQ TAB.PRT.SR PO SCH (08:04)
[2019-06-20] MEDS: LEVOTHYROXINE SODIUM 100 MCG TABLET PO SCH (08:04)
[2019-06-20] MEDS: ENOXAPARIN SODIUM 40 MG/0.4 ML DISP.SYRIN SQ SCH (08:05)
[2019-06-20] MEDS: POLYVINYL ALCOHOL 15 ML BOTTLE EACHEYE SCH ×3 (08:21→16:18)
[2019-06-20] MEDS: GABAPENTIN 100 MG CAPSULE PO SCH ×2 (09:32→16:18)
[2019-06-20] MEDS: MUPIROCIN OINT 2% 22 GM TUBE SCH ×2 (09:33→21:10)
--- NOTE | 2019-06-20 10:16 | NUR ---
JUSTINE RN NOTES Dr. Smith at bedside. MD aware of cough, BUN 33, Creat 0.4. New order given Robitussin. Will continue to monitor.
[2019-06-20] MEDS ORDERED: GUAIFENESIN/D-METHORPHAN HB 5 ML UDC PO PRN (10:30)
[2019-06-20] MEDS: AZITHROMYCIN 500 MG in IV D5W 250 ML IV SCH (11:04)
--- NOTE | 2019-06-20 11:18 | NUR ---
dpi rn note round made, on breathing tx at this time, patient still has cough, Robitussin given PRN.
[2019-06-20] MEDS: PANTOPRAZOLE 40 MG TABLET.DR PO SCH (11:37)
[2019-06-20 12:00] VITALS: BP 117/67
--- NOTE | 2019-06-20 14:34 | NUR ---
jordyn rn note resting comfortably, not in distress ,all meeds attended ,will Monitor
--- NOTE | 2019-06-20 15:40 | NUR ---
jordyn rn note lt upper arm pain ice pack applied ,will monitor
[2019-06-20 16:00] VITALS: BP 115/62
[2019-06-20] MEDS ORDERED: ENSURE ENLIVE CHOC 237 ML CAN PO SCH (17:00)
--- NOTE | 2019-06-20 17:52 | NUR ---
NAVAL ARCHITECT NOTE HAVING DINNER , ABLE TO EAT SELF , ALL NEEDS ATTENDED NOT IN DISTRESS ,WILL MONITOR CLOSELY
--- NOTE | 2019-06-20 18:45 | NUR ---
PLASTIC BATTERY ASSEMBLER NOTES RESTING COMFORTABLY IN BED. PATIENT IS NOT IN DISTRESS. NO SOB. ON 3L NC SAT 95%. CALL LIGHT WITHIN REACH, BED IN LOWEST POSITION, BED IS LOCKED. WILL ENDORSE CARE TO ONCOMING RN.
[2019-06-20 20:00] VITALS: BP 110/50
--- NOTE | 2019-06-20 20:09 | NUR ---
RN NOTE NOTIFIED BY ASSIGNED RT THAT PT IS REFUSING ORDERED BREATHING TREATMENTS AT THIS TIME. PT IS ALERT AND ORIENTED X 4. PT SATURATION WNL. RESPIRATIONS EVEN AND UNLABORED. EXPLAINED RISKS AND ADVANTAGES BUT PT CONTINUES TO REFUSE.
[2019-06-20] MEDS: ATORVASTATIN 10 MG TABLET PO SCH (21:04)
[2019-06-20] MEDS: DOCUSATE SODIUM 100 MG CAPSULE PO SCH (21:04)
[2019-06-21] VITALS: BP 110/56
[2019-06-21] MEDS: IPRATROPIUM NEB FS 0.5 MG/2.5 ML AMPUL.NEB NEB SCH ×4 (03:37→14:37)
[2019-06-21] MEDS: ALBUTEROL FS 2.5 MG/3 ML VIAL.NEB NEB SCH ×4 (03:37→14:37)
[2019-06-21 04:00] VITALS: BP 116/68
[2019-06-21 06:07] LABS: BASOPHILS % (AUTO) 0.3 % (0.0-2.0); EOSINOPHILS % (AUTO) 0.1 % (0.0-6.0); HEMATOCRIT 35 % (33-45); HEMOGLOBIN 11.4 g/dL (11.5-14.8); LYMPHOCYTES # (AUTO) 1.7 /CMM (0.8-4.8); LYMPHOCYTES % (AUTO) 14.7 % (20.0-44.0); MEAN CORPUSCULAR HGB CONC 33 g/dl (31.0-36.0); MEAN CORPUSCULAR VOLUME 82 fL (82-100); MONOCYTES # (AUTO) 1.1 /CMM (0.1-1.30); MONOCYTES % (AUTO) 9.5 % (2.0-12.0); NEUTROPHILS # (AUTO) 8.6 /CMM (1.8-8.9); NEUTROPHILS % (AUTO) 75.4 % (43.0-81.0); PLATELET COUNT (AUTO) 279 /CMM (150-450); RED BLOOD CELL COUNT(AUTO) 4.28 MIL/uL (4.0-5.2); WHITE BLOOD COUNT (AUTO) 11.4 K/uL (4.3-11.0)
[2019-06-21 06:50] LABS: CALCIUM, SERUM 8.3 mg/dL (8.5-10.1); CREATININE 0.5 mg/dL (0.6-1.3)
--- NOTE | 2019-06-21 07:10 | NUR ---
RN CLOSING NOTE PATIENT IN BED AWAKE AND ALERT X 3. NO INDICATIONS OF DISTRESS OR DISCOMFORT. PT DENIES PAIN. ON TELE MONITOR. SAFETY MEASURES IN PLACE. CALL LIGHT WITHIN REACH, ENDORSED TO MORNING SHIFT FOR CONTINUATION OF CARE.
--- NOTE | 2019-06-21 07:15 | NUR ---
RN NOTE RECEIVED ALERT FOR CO2 41. PAGED DR. GARDNER. ALSO ENROSED TO MORNING SHIFT.
--- NOTE | 2019-06-21 07:22 | NUR ---
RN NOTE AWAITING CALL BACK FROM DR. GARDNER REGARDING CRITICAL LAB VALUE (CO2 41). PAGED SECOND TIME. ENDORSED TO DOMINGO MORALEZ TO FOLLOW UP WITH CARE.
--- NOTE | 2019-06-21 07:30 | NUR ---
LIGHT RAIL OPERATOR OPENING NOTES RECEIVED PATIENT IN STABLE CONDITION, RESTING IN BED. ON 3L OXYGEN VIA NC. PATIENT IS ALERT AND ORIENTED X4. ON TELE MONITOR WITH SINUS RHYTHM NOTED. BED REST REQUIRES FREQUENT REPOSITIONING. RIGHT UPPER ARM MIDLINE PATENT, INTACT AND FLUSHED WELL. BLOOD RETURN PRESENT. NO SIGNS AND SYMPTOMS OF INFECTION NOTED. SAFETY MAINTAINED, CALL LIGHT WITHIN REACH, WILL CONTINUE TO MONITOR.
[2019-06-21 08:00] VITALS: BP 122/59
[2019-06-21] MEDS ORDERED: methylPREDNISolone SOD SUCC 125 MG/2ML VIAL IV SCH (09:00)
[2019-06-21] MEDS: FERROUS SULFATE (325 MG) 325 MG/TAB TABLET PO SCH (09:25)
[2019-06-21] MEDS: MULTIVIT W/MINERALS 1 TAB TABLET PO SCH (09:25)
[2019-06-21] MEDS: ASCORBIC ACID 500 MG TABLET PO SCH (09:25)
[2019-06-21] MEDS: CHOLECALCIFEROL 1,000 UNIT TABLET (VIT D3) PO SCH (09:25)
[2019-06-21] MEDS: POTASSIUM CHLORIDE 20 MEQ TAB.PRT.SR PO SCH (09:25)
[2019-06-21] MEDS: GABAPENTIN 100 MG CAPSULE PO SCH (09:25)
[2019-06-21] MEDS: FUROSEMIDE 20 MG TABLET PO SCH (09:25)
[2019-06-21] MEDS: CITALOPRAM HYDROBROMIDE 20 MG TABLET PO SCH (09:26)
[2019-06-21] MEDS: ENOXAPARIN SODIUM 40 MG/0.4 ML DISP.SYRIN SQ SCH (09:27)
[2019-06-21] MEDS: LEVOTHYROXINE SODIUM 100 MCG TABLET PO SCH (09:29)
[2019-06-21] MEDS: MUPIROCIN OINT 2% 22 GM TUBE SCH (09:40)
[2019-06-21] MEDS: POLYVINYL ALCOHOL 15 ML BOTTLE EACHEYE SCH ×2 (09:40→12:38)
[2019-06-21] MEDS ORDERED: AZIT500V6 IV (11:30)
[2019-06-21] MEDS ORDERED: METH40VI32 IV (11:40)
[2019-06-21 12:00] VITALS: BP 142/76
[2019-06-21] MEDS: PANTOPRAZOLE 40 MG TABLET.DR PO SCH (12:38)
[2019-06-21] MEDS: AZITHROMYCIN 500 MG in IV D5W 250 ML IV SCH (12:38)
[2019-06-21 16:00] VITALS: BP_SYST 129; BP_SYST 137; BP_DIAS 66; BP_DIAS 87
--- NOTE | 2019-06-21 16:30 | NUR ---
PATIENT IS BEING PICKED UP BY AMBULANCE. REPORT WAS GIVEN TO SNF FACILITY, [facility]. PATIENT IN STABLE CONDITION. DISCHARGE EDUCATION WAS PROVIDED TO THE PATIENT. ALL FORMS SIGNED. SCHEDULED MEDICATION WERE ADMINISTERED. PATIENT REMAINED ON OXYGEN VIA NC AT 2L. SAFETY WAS MAINTAINED. CALL LIGHT WITHIN REACH. ALL PATIENT NEEDS MET. AMBULANCE WILL TAKE CARE OF THE PATIENT FROM NOW ON.
== END 2019-06-21 15:00 | DRG 189 ==
LOC: ER 08:55 → TELE-TD 09:58 → TELE1 06-20 16:51
PROVIDERS: ADMIT Family Medicine; ATTEND Family Medicine
PROC: 5A09457 Assistance with Respiratory Ventilation, 24-96 Consecutive Hours, Continuous Positive Airway Pressure (ICD-10-PCS; 2019-06-18)
PROC: 05HA33Z Insertion of Infusion Device into Left Brachial Vein, Percutaneous Approach (ICD-10-PCS; principal; 2019-06-19)
DX: J96.21 Acute and chronic respiratory failure with hypoxia (principal); I21.A1 Myocardial infarction type 2; J44.1 Chronic obstructive pulmonary disease with (acute) exacerbation; E44.1 Mild protein-calorie malnutrition; E66.2 Morbid (severe) obesity with alveolar hypoventilation; J96.22 Acute and chronic respiratory failure with hypercapnia; K21.9 Gastro-esophageal reflux disease without esophagitis; E11.9 Type 2 diabetes mellitus without complications; E03.9 Hypothyroidism, unspecified; E78.5 Hyperlipidemia, unspecified; I10 Essential (primary) hypertension; Z79.51 Long term (current) use of inhaled steroids; Z99.81 Dependence on supplemental oxygen; Z66 Do not resuscitate; D72.829 Elevated white blood cell count, unspecified; D64.9 Anemia, unspecified
CPT/HCPCS: 36415; 36600; 71045-TC; 80048-TC; 80061-TC; 80076-TC; 82803-TC; 82962-TC; 83735-TC; 83880; 84100-TC; 84443-TC; 84484-TC; 85025-TC; 87081-TC; 93307-TC; 94640-TC; 94660; 94760-TC; 94799-TC; G0378; J0456; J0696; J1650; J2930; J7050; J7060

== ENCOUNTER 2020-05-15 16:49 | Inpatient (IN) | payer MEDICARE, OTHER ==
[~2020-05-15] VITALS: Ht 170.2 cm; Wt 114.3 kg
[~2020-05-15 16:49] MED LIST changes: +ACET-2605 PO; -ACET-868 PO; +ALBU2.5V38 IH; -AMIN30LI4 PO; +ASCO-352 PO; +ATOR10TA PO; +AZIT500V6 IV; -BISA10SU11 RC; -BUDE10.2 IH; -CALC-7 PO; +CHOL200026 PO; +CLON0.1T PO; -HYDR-4384 PO; -IPRA3AMP23 IH; -LORA10TA7 PO; +LUBI24CA5 PO; -MAGN400O6 PO; +METH40VI32 IV; -NA P133E RC; +OMEG-88 PO; +POLY15DR40 EACHEYE; -TRAM50TA2 PO
--- NOTE | 2020-05-15 16:50 | NUR ---
BIB RA [facility] FROM [facility],DECREASED LOC 1 HR STEEL SHOT HEADER OPERATOR, NARCAN 2 MG IVP GIVEN. IV ACCESS NOTED ON L HAND G20. INTACT AND PATENT. DR. LIRIANO BY BEDSIDE. RECEIVED REPORT FROM RESCUE. PREPARED FOR INTUBATION PER DR. LIRIANO ORDERS. RT BY BEDSIDE. VS CHECKED. HOOKED ON MONITOR.
[2020-05-15] MEDS ORDERED: PROPOFOL 100 ML ONE (16:51)
--- NOTE | 2020-05-15 17:00 | NUR ---
@ [address] Liriano for airway protection with 7.0 et tube secured @ 24 cm lipline. SYMMETRICAL CHEST RISE, CO2 DETECTOR CHANGED TO YELLOW COLOR AND CLEAR BREATH SOUNDS BILATERAL POST INTUBATION. VENT PARAMETERS BELOW PER DR. LIRIANO: AC 18 VT 550ML FIO2 100% PEEP +5 VENT PLUGGED INTO RED OUTLET WITH ALARMS ON AND FUNCTIONAL. Addendum: 05/15/20 at 1725 by EFRAIN CHAPARRO RT Amended: Links added.
--- NOTE | 2020-05-15 17:01 | NUR ---
s/p intubation by dr. egan. breath sounds appreciated. no abd gurgling. satting at 100%. vent settings noted as follows: ac 22, tv 550, fi02 60%, peep 5.
--- NOTE | 2020-05-15 17:10 | NUR ---
villalta cath placed. urine collected sent to lab
[2020-05-15] MEDS ORDERED: PROPOFOL 100 ML IV PRN (17:30)
[2020-05-15] MEDS ORDERED: FENTANYL CITRAT IV 2,500 MCG in IV NS 0.9% 200 ML IV PRN ×2 (17:30→23:30)
[2020-05-15 17:54] LABS: BASOPHILS # (AUTO) 0.1 /CMM (0.0-0.2); BASOPHILS % (AUTO) 1.3 % (0.0-2.0); EOSINOPHILS % (AUTO) 0.3 % (0.0-6.0); HEMATOCRIT 39 % (33-45); HEMOGLOBIN 11.8 g/dL (11.5-14.8); LYMPHOCYTES # (AUTO) 0.7 /CMM (0.8-4.8); MEAN CORPUSCULAR HGB CONC 31 g/dl (31.0-36.0); MEAN CORPUSCULAR VOLUME 87 fL (82-100); MONOCYTES # (AUTO) 0.9 /CMM (0.1-1.30); MONOCYTES % (AUTO) 9.3 % (2.0-12.0); NEUTROPHILS # (AUTO) 8.2 /CMM (1.8-8.9); NEUTROPHILS % (AUTO) 82.1 % (43.0-81.0); PLATELET COUNT (AUTO) 252 /CMM (150-450); RED BLOOD CELL COUNT(AUTO) 4.41 MIL/uL (4.0-5.2); WHITE BLOOD COUNT (AUTO) 9.9 K/uL (4.3-11.0)
[2020-05-15 17:57] LABS: BILIRUBIN,URINE Negative (NEGATIVE); COLOR,URINE YELLOW (YELLOW); LEUKOCYTE ESTERASE ,URINE Negative (NEGATIVE); NITRITE, URINE Negative (NEGATIVE); PROTEIN,URINE 100 mg/dl (NEGATIVE); UGLUCOSE Negative (NEGATIVE); UROBILINOGEN,URINE 0.2 EU/dL (0.2)
[2020-05-15 17:59] LABS: CHLORIDE 94 mmol/L (98-107); CREATININE 0.4 mg/dL (0.6-1.3); GLUCOSE 164 mg/dL (74-106); POTASSIUM 4.5 mmol/L (3.5-5.1); SODIUM SERUM 140 mmol/L (136-145); UREA NITROGEN, BLOOD 18 mg/dL (7-18)
[2020-05-15] MEDS ORDERED: MELA3TAB41 PO (18:02)
[2020-05-15] MEDS ORDERED: CALC1TAB30 PO (18:02)
[2020-05-15] MEDS ORDERED: LORA10TA7 PO (18:02)
[2020-05-15] MEDS ORDERED: IPRA3AMP23 IH (18:02)
[2020-05-15] MEDS ORDERED: CRAN3875 PO (18:02)
[2020-05-15] MEDS ORDERED: BUDE10.2 IH (18:02)
[2020-05-15] MEDS ORDERED: NITR0.4T48 SL (18:02)
[2020-05-15] MEDS ORDERED: CRAN200C PO (18:02)
[2020-05-15] MEDS ORDERED: BISA10SU11 RC (18:02)
[2020-05-15] MEDS ORDERED: DOCU250C14 PO (18:02)
[2020-05-15] MEDS ORDERED: POTA20PA3 PO (18:02)
[2020-05-15 18:04] LABS: CARBON DIOXIDE 46 mmol/L (21-32)
--- NOTE | 2020-05-15 18:04 | NUR ---
LAB CALLED CO2 IS 46 GUILLE INFORMED.
[2020-05-15 18:09] LABS: BACTERIA,URINE Rare /HPF (None Seen); SQUAMOUS EPITHELIAL CELL,UR Few /HPF (None Seen); WBC,URINE NONE SEEN /HPF (0-3)
--- NOTE | 2020-05-15 18:15 | NUR ---
covid swabs done. pcr and antigen
[2020-05-15 18:19] LABS: ALANINE AMINOTRANSFERASE 21 U/L (12-78); ALBUMIN 2.9 g/dL (3.4-5.0); ALKALINE PHOSPHATASE 123 U/L (46-116); ASPARTATE AMINOTRANSFERASE 23 U/L (15-37); BILIRUBIN,DIRECT 0.1 mg/dL (0.0-0.2); BILIRUBIN,TOTAL 0.2 mg/dL (0.2-1.0); TOTAL PROTEIN, SERUM 8.2 g/dL (6.4-8.2)
--- NOTE | 2020-05-15 18:20 | NUR ---
pt brought to ct scan, chest xray completed.
[2020-05-15 18:28] LABS: ABG OXYGEN SATURATION 98.8 % (92.0-98.5); ABG PCO2 49.2 mmHg (35.0-45.0); ABG PH 7.555 (7.350-7.450); ABG PO2 147.1 mmHg (75.0-100.0); AaDO2 516.7 mmHg; COHb 0.5 % (0.5-1.5); MetHb 0.4 % (0.0-1.5); O2Hb 97.9 % (94.0-97.0); PEEP,BG 5 cm H2O; SITE, ABG Left Brachial; VT, ABG 550 mL
--- NOTE | 2020-05-15 18:31 | NUR ---
VENT CHANGES BELOW PER DR. LIRIANO: CIARAN 22 FIO2 60% RN NOTIFIED Addendum: 05/15/20 at 1832 by EFRAIN CHAPARRO RT Amended: Links added.
--- NOTE | 2020-05-15 18:37 | NUR ---
called pharmacy spoke to jonatan. stated it will take 45min-1hr for fentanyl to be prepared. dr. egan made aware. per okay to start when available.
--- NOTE | 2020-05-15 18:49 | NUR ---
called radiology for reading for head ct
[2020-05-15] MEDS ORDERED: ETOMIDATE 2 MG/ML VIAL IV ONE (19:00)
[2020-05-15] MEDS ORDERED: MEROPENEM 1,000 MG in IV NS 0.9% 100 ML IV ONE (19:00)
[2020-05-15] MEDS ORDERED: ROCURONIUM BROMIDE 50 MG/5 ML IV ONE (19:00)
[2020-05-15] MEDS ORDERED: VANCOMYCIN 1 GM in IV D5W 250 ML IV ONE (19:00)
[2020-05-15] MEDS ORDERED: Z GUARD REMEDY 2 OZ OINT TP PRN (19:30)
[2020-05-15] MEDS ORDERED: ZOLPIDEM TARTRATE 5 MG TABLET PO PRN (19:30)
[2020-05-15] MEDS ORDERED: HYDROCODONE/APAP 5/325MG TABLET PO PRN (19:30)
[2020-05-15] MEDS ORDERED: ONDANSETRON HCL/PF 4 MG/2 ML VIAL IVP PRN (19:30)
--- NOTE | 2020-05-15 19:42 | NUR ---
RR settings decreased to 16 and FIO2 changed to 70% per Dr. Gregory Addendum: 05/16/20 at 0530 by GUY DÍAZ RT Amended: Links added.
[2020-05-15 19:50] LABS: ABG BASE EXCESS 16.2 mmol/L; ABG OXYGEN SATURATION 94.5 % (92.0-98.5); ABG PH 7.634 (7.350-7.450); ABG PO2 58.8 mmHg (75.0-100.0); AaDO2 328.3 mmHg; COHb 0.5 % (0.5-1.5); MetHb 0.2 % (0.0-1.5); O2Hb 93.8 % (94.0-97.0); SITE, ABG Right Radial
[2020-05-15] MEDS ORDERED: VANCOMYCIN 500 MG in IV D5W 100 ML IV ONE (20:30)
[2020-05-15 20:37] LABS: ABG OXYGEN SATURATION 98.1 % (92.0-98.5); ABG PCO2 43.8 mmHg (35.0-45.0); ABG PH 7.574 (7.350-7.450); ABG PO2 112.1 mmHg (75.0-100.0); AaDO2 339.9 mmHg; COHb 0.3 % (0.5-1.5); MetHb 0.2 % (0.0-1.5); O2Hb 97.6 % (94.0-97.0); SITE, ABG Right Radial
--- NOTE | 2020-05-15 21:34 | NUR ---
LAB CALLED REGARDING POSITIVE COVID RESULT.
--- NOTE | 2020-05-15 22:08 | NUR ---
report given to darrion brennan for betzaida
--- NOTE | 2020-05-15 22:36 | NUR ---
pt transported to icu
[2020-05-15 22:39] VITALS: BP 102/46
[2020-05-15 23:00] VITALS: BP 93/57
[2020-05-15 23:08] VITALS: BP 102/46
[2020-05-15] MEDS: IV NS 0.9% 1,000 ML IV PRN (23:27)
[2020-05-15] MEDS: PIPERACILLIN /TAZOBACTAM 3.375 G in IV D5W 50 ML IV SCH (23:33)
[2020-05-15] MEDS: ENOXAPARIN SODIUM 40 MG/0.4 ML DISP.SYRIN SQ SCH (23:33)
[2020-05-15] MEDS: PROPOFOL 100 ML IV PRN (23:53)
[2020-05-16] VITALS (48 sets, daily range): BP systolic 74–148; BP diastolic 34–95
--- NOTE | 2020-05-16 00:30 | NUR ---
peep decreased due to low blood pressure. rn notified Addendum: 05/16/20 at 0455 by BETO TOVAR RT Amended: Links added.
[2020-05-16] MEDS: PROPOFOL 100 ML IV PRN (01:00)
[2020-05-16 05:14] LABS: BASOPHILS % (AUTO) 0.3 % (0.0-2.0); EOSINOPHILS % (AUTO) 0.1 % (0.0-6.0); HEMATOCRIT 32 % (33-45); HEMOGLOBIN 10.4 g/dL (11.5-14.8); LYMPHOCYTES # (AUTO) 0.8 /CMM (0.8-4.8); LYMPHOCYTES % (AUTO) 8.7 % (20.0-44.0); MEAN CORPUSCULAR HGB CONC 32 g/dl (31.0-36.0); MEAN CORPUSCULAR VOLUME 83 fL (82-100); MONOCYTES # (AUTO) 0.9 /CMM (0.1-1.30); NEUTROPHILS # (AUTO) 7.8 /CMM (1.8-8.9); NEUTROPHILS % (AUTO) 81.9 % (43.0-81.0); PLATELET COUNT (AUTO) 263 /CMM (150-450); RED BLOOD CELL COUNT(AUTO) 3.85 MIL/uL (4.0-5.2); WHITE BLOOD COUNT (AUTO) 9.5 K/uL (4.3-11.0)
[2020-05-16] MEDS: PIPERACILLIN /TAZOBACTAM 3.375 G in IV D5W 50 ML IV SCH ×3 (05:31→17:45)
[2020-05-16 05:39] LABS: CREATININE 0.8 mg/dL (0.6-1.3); MAGNESIUM 1.8 mg/dL (1.8-2.4); PHOSPHORUS 1.6 mg/dL (2.5-4.9)
[2020-05-16 05:45] LABS: THYROID STIMULATING HORMONE 48.235 uIU/mL (0.358-3.74)
--- NOTE | 2020-05-16 07:42 | NUR ---
RN NOTES RECEIVED PT INTUBATED AND SEDATED ON DIPRIVAN AT 10 MCG/KG/MIN , ON TELE SR HR IN 80'S , L NGT INTACT, PLACEMENT VERIFIED , NS AT 75CC/ HR RUNNING , SR UP x3, CALL LIGHT WITHIN EASY REACH, BED LOCKED AND IN LOWEST POSITION, CONTINUE TO MONITOR .
--- NOTE | 2020-05-16 07:47 | NUR ---
WOUND CARE CONSULT: REVIEWED CHART AND NURSING DOCUMENTATION. PT IS INTUBATED AND IMMOBILE. RECOMMENDATIONS MADE FOR SKIN PROTECTION. DISCUSSED WITH NURSING STAFF. PT IS ON [place] ISOFLEX LOW AIRLOSS BED. MD IN AGREEMENT WITH PLAN OF CARE.
[2020-05-16] MEDS: PANTOPRAZOLE 40 MG TABLET.DR PO SCH (08:11)
[2020-05-16 12:08] LABS: C-REACTIVE PROTEIN 11.5 mg/dL (0.0-0.9)
[2020-05-16] MEDS: IV NS 0.9% 1,000 ML IV PRN (12:37)
[2020-05-16] MEDS: PROPOFOL 10MG/ML 50ML 50 ML IV PRN ×2 (13:45→18:45)
[2020-05-16] MEDS: NOREPINEPHRINE 8 MG in IV NS 0.9% 242 ML IV PRN (14:25)
[2020-05-16] MEDS: POTASSIUM PHOSPHATE MM 7.5 MMOL in IV NS 0.9% 100 ML IV SCH ×2 (14:28→17:12)
[2020-05-16] MEDS ORDERED: VANCOMYCIN 1.5 GM in IV D5W 500 ML IV SCH (16:00)
[2020-05-16] MEDS: methylPREDNISolone SOD SUCC 125 MG/2ML VIAL IV SCH (16:35)
[2020-05-16] MEDS: IPRATROPIUM/ALBUTEROL INHALER IH SCH (17:14)
[2020-05-16] MEDS: ENOXAPARIN SODIUM 40 MG/0.4 ML DISP.SYRIN SQ SCH (21:18)
--- NOTE | 2020-05-16 21:23 | NUR ---
ELECTROMAGNET CRANE OPERATOR. INITIAL ASSESSMENT. RECEIVED THE PT REST ON THE BED, ORALLY INTUBATED, SEDATED WITH DIPRIVAN,LT NARE NGT INTACT, IV RT UPPER ARM PICC LINE DIPRIVAN 20MCG/KG/MIN,NS 75ML/H,LEVOPHED 0.4MCG/KG/MIN, LANDON WRIST RESTRAINT CHECKED AND RELEASED. NO INJURY OR REDNESS NOTED. INVENTORY CLERK SHOWING NSR, WILL CONTINUE TO MONITOR VITALS.
[2020-05-17] VITALS (68 sets, daily range): BP systolic 88–145; BP diastolic 38–98
[2020-05-17] MEDS: PROPOFOL 10MG/ML 50ML 50 ML IV PRN ×16 (00:14→23:20)
[2020-05-17] MEDS: PIPERACILLIN /TAZOBACTAM 3.375 G in IV D5W 50 ML IV SCH ×5 (01:19→23:57)
[2020-05-17] MEDS: IV NS 0.9% 1,000 ML IV PRN ×2 (01:20→13:01)
[2020-05-17] MEDS: NOREPINEPHRINE 8 MG in IV NS 0.9% 242 ML IV PRN (01:20)
[2020-05-17 04:14] LABS: BASOPHILS % (AUTO) 0.1 % (0.0-2.0); HEMATOCRIT 31 % (33-45); LYMPHOCYTES # (AUTO) 0.7 /CMM (0.8-4.8); LYMPHOCYTES % (AUTO) 6.6 % (20.0-44.0); MEAN CORPUSCULAR HGB CONC 32 g/dl (31.0-36.0); MEAN CORPUSCULAR VOLUME 83 fL (82-100); MONOCYTES # (AUTO) 0.4 /CMM (0.1-1.30); MONOCYTES % (AUTO) 3.8 % (2.0-12.0); NEUTROPHILS # (AUTO) 9.9 /CMM (1.8-8.9); NEUTROPHILS % (AUTO) 89.5 % (43.0-81.0); PLATELET COUNT (AUTO) 304 /CMM (150-450); RED BLOOD CELL COUNT(AUTO) 3.76 MIL/uL (4.0-5.2); WHITE BLOOD COUNT (AUTO) 11.1 K/uL (4.3-11.0)
[2020-05-17 04:44] LABS: CALCIUM, SERUM 7.8 mg/dL (8.5-10.1); CREATININE 0.7 mg/dL (0.6-1.3); PHOSPHORUS 3.5 mg/dL (2.5-4.9)
--- NOTE | 2020-05-17 04:54 | NUR ---
director agricultural services. am care, all care given. remaining same vent setting tolerated well st 98%, no acute distress noted. security monitor showing nsr, iv ns 75ml/h, diprivan 40mcg/kg/min, levophed 0.03mcg/kg/min. fc patent. robert soft wristrestraint checked and released, no injury or redness noted, will continue to monitor vitals
[2020-05-17 05:17] LABS: POTASSIUM 2.6 mmol/L (3.5-5.1)
[2020-05-17] MEDS ORDERED: POTASSIUM CHLORIDE 20 MEQ TAB.PRT.SR PO ONE (06:00)
[2020-05-17] MEDS: IPRATROPIUM/ALBUTEROL INHALER IH SCH ×4 (06:00→17:06)
--- NOTE | 2020-05-17 07:30 | NUR ---
RN OPENING NOTE PATIENT PRESENT IN BED, SEDATED ON PROPOFOL @ 45MCG/HR, TOLERATING WELL, ON MECH VENT, RESPIRATIONS EVEN AND UNLABORED, TOLERATING SETTINGS WELL, NG TUBE IN PLACE, INTACT, PATENT, AUSCULTATED, CHECKED PLACEMENT WITH XRAY, IV LINES NOTED ON L WRIST AND HAND, AND R UA MID-LINE IN PLACE, INTACT, PATENT AND FLUSHED. TENORIO CATH IN PLACE, DRAINING YELLOW URINE BY GRAVITY. BED IN LOWEST POSITION, CALL LIGHT IN REACH, HOB ELEVATED, WILL CONT TO MONITOR CLOSELY
[2020-05-17] MEDS: PANTOPRAZOLE 40 MG TABLET.DR PO SCH (08:35)
[2020-05-17] MEDS: methylPREDNISolone SOD SUCC 125 MG/2ML VIAL IV SCH ×2 (08:36→16:53)
[2020-05-17 09:58] LABS: ABG BASE EXCESS 6.7 mmol/L; ABG OXYGEN SATURATION 98.5 % (92.0-98.5); ABG PCO2 42.7 mmHg (35.0-45.0); ABG PH 7.477 (7.350-7.450); ABG PO2 127.5 mmHg (75.0-100.0); COHb 0.3 % (0.5-1.5); O2Hb 98.2 % (94.0-97.0); PEEP,BG 0 cm H2O; SITE, ABG Left Radial; VT, ABG 450 mL
--- NOTE | 2020-05-17 11:53 | NUR ---
holding Vanco due pending Vanco toxicology results
--- NOTE | 2020-05-17 13:25 | NUR ---
REPORT GIVEN TO DOMINGO MONTESINOS FOR LOLY
[2020-05-17] MEDS ORDERED: POTASSIUM CHLORIDE 20 MEQ POWDER PACKET GT STA (20:46)
[2020-05-17] MEDS: ENOXAPARIN SODIUM 40 MG/0.4 ML DISP.SYRIN SQ SCH (21:08)
[2020-05-17] MEDS: VANCOMYCIN 1.5 GM in IV D5W 500 ML IV SCH (22:33)
[2020-05-18] VITALS (24 sets, daily range): BP systolic 119–167; BP diastolic 56–99
[2020-05-18] MEDS: PROPOFOL 10MG/ML 50ML 50 ML IV PRN ×5 (00:55→06:14)
[2020-05-18] MEDS: IV NS 0.9% 1,000 ML IV PRN ×2 (04:47→19:00)
[2020-05-18 04:48] LABS: EOSINOPHILS % (AUTO) 0.1 % (0.0-6.0); HEMATOCRIT 30 % (33-45); HEMOGLOBIN 9.7 g/dL (11.5-14.8); LYMPHOCYTES # (AUTO) 0.5 /CMM (0.8-4.8); LYMPHOCYTES % (AUTO) 10.5 % (20.0-44.0); MEAN CORPUSCULAR HGB CONC 32 g/dl (31.0-36.0); MEAN CORPUSCULAR VOLUME 84 fL (82-100); MONOCYTES # (AUTO) 0.4 /CMM (0.1-1.30); MONOCYTES % (AUTO) 7.1 % (2.0-12.0); NEUTROPHILS # (AUTO) 4.1 /CMM (1.8-8.9); NEUTROPHILS % (AUTO) 82.3 % (43.0-81.0); PLATELET COUNT (AUTO) 227 /CMM (150-450); RED BLOOD CELL COUNT(AUTO) 3.63 MIL/uL (4.0-5.2)
[2020-05-18 04:57] LABS: CALCIUM, SERUM 7.8 mg/dL (8.5-10.1); CREATININE 0.5 mg/dL (0.6-1.3); MAGNESIUM 2.3 mg/dL (1.8-2.4); PHOSPHORUS 3.2 mg/dL (2.5-4.9); POTASSIUM 3.2 mmol/L (3.5-5.1)
[2020-05-18] MEDS: PIPERACILLIN /TAZOBACTAM 3.375 G in IV D5W 50 ML IV SCH ×4 (05:32→21:54)
[2020-05-18] MEDS: IPRATROPIUM/ALBUTEROL INHALER IH SCH ×4 (06:00→17:13)
--- NOTE | 2020-05-18 07:30 | NUR ---
RECEIVED PATIENT IN BED. NO ACUTE DISTRESS NOTED. PATIENT LETHARGIC, PROPOFOL STOPPED DURING PULP PLANT SUPERVISOR. PATIENT INTUBATED, TOLERATING VENT SETTINGS WELL. PATIENT ON CHANGE MANAGEMENT SPECIALIST, NORMAL SINUS RHYTHM NOTED. PATIENT NGTUBE IN PLACE, INTACT, PATENT. PATIENT TENORIO CATHETER IN PLACE, INTACT, DRAINING TO GRAVITY. PATIENT RESTRAINTS IN PLACE, SAFETY MEASURES MAINTAINED. PATIENT NPO STATUS OBSERVED. PATIENT RIGHT UPPER ARM PICC LINE IN PLACE, INTACT, PATENT, FLUSHED WELL. PATIENT SAFETY MEASURES MAINTAINED. WILL CONTINUE TO MONITOR.
[2020-05-18] MEDS: methylPREDNISolone SOD SUCC 125 MG/2ML VIAL IV SCH ×2 (08:31→17:13)
[2020-05-18] MEDS: LEVOTHYROXINE SODIUM 50 MCG TABLET PO SCH (08:31)
[2020-05-18] MEDS: PANTOPRAZOLE 40 MG TABLET.DR PO SCH (08:31)
[2020-05-18 09:32] LABS: ABG BASE EXCESS 5.9 mmol/L; ABG OXYGEN SATURATION 97.4 % (92.0-98.5); ABG PCO2 51.9 mmHg (35.0-45.0); ABG PH 7.405 (7.350-7.450); ABG PO2 97.5 mmHg (75.0-100.0); COHb 0.1 % (0.5-1.5); MetHb 0.2 % (0.0-1.5); O2Hb 97.1 % (94.0-97.0); PEEP,BG 5 cm H2O; SITE, ABG Right Radial; VENT MODE, BG SIMV 4 PSV 15; VT, ABG 450 mL
[2020-05-18] MEDS: POTASSIUM CL. PREMIX PERIPHER. 50 ML IV SCH ×4 (09:40→12:53)
[2020-05-18] MEDS ORDERED: DC PROPOFOL WHEN EXTUBATED XX PRN (11:00)
[2020-05-18] MEDS: VANCOMYCIN 1.5 GM in IV D5W 500 ML IV SCH (17:04)
--- NOTE | 2020-05-18 18:40 | NUR ---
PATIENT IN BED. NO ACUTE DISTRESS NOTED. PATIENT ALERT & ORIENTED X3. PATIENT EXTUBATED, ON 3L NC, SATURATING WELL. PATIENT ON COMPENSATION MANAGER, NORMAL SINUS RHYTHM NOTED. PATIENT NGTUBE IN PLACE, INTACT, PATENT. PATIENT TENORIO CATHETER IN PLACE, INTACT, DRAINING TO GRAVITY. PATIENT RIGHT UPPER ARM PICC LINE IN PLACE, INTACT, PATENT, FLUSHED WELL. PATIENT SAFETY MEASURES MAINTAINED. WILL CONTINUE TO MONITOR.
[2020-05-18] MEDS: ENOXAPARIN SODIUM 40 MG/0.4 ML DISP.SYRIN SQ SCH (21:56)
[2020-05-18] MEDS: MUPIROCIN OINT 2% 22 GM TUBE NS SCH (22:17)
[2020-05-19] VITALS (15 sets, daily range): BP systolic 123–189; BP diastolic 53–121
[2020-05-19] MEDS: PIPERACILLIN /TAZOBACTAM 3.375 G in IV D5W 50 ML IV SCH ×4 (05:44→23:37)
[2020-05-19] MEDS: IV NS 0.9% 1,000 ML IV PRN (05:49)
[2020-05-19] MEDS: IPRATROPIUM/ALBUTEROL INHALER IH SCH ×5 (06:00→23:40)
[2020-05-19 06:02] LABS: BASOPHILS % (AUTO) 0.1 % (0.0-2.0); EOSINOPHILS % (AUTO) 0.2 % (0.0-6.0); HEMATOCRIT 32 % (33-45); HEMOGLOBIN 10.2 g/dL (11.5-14.8); LYMPHOCYTES # (AUTO) 0.9 /CMM (0.8-4.8); LYMPHOCYTES % (AUTO) 8.3 % (20.0-44.0); MEAN CORPUSCULAR HGB CONC 32 g/dl (31.0-36.0); MEAN CORPUSCULAR VOLUME 85 fL (82-100); MONOCYTES # (AUTO) 0.9 /CMM (0.1-1.30); MONOCYTES % (AUTO) 9.1 % (2.0-12.0); NEUTROPHILS # (AUTO) 8.5 /CMM (1.8-8.9); NEUTROPHILS % (AUTO) 82.3 % (43.0-81.0); PLATELET COUNT (AUTO) 219 /CMM (150-450); RED BLOOD CELL COUNT(AUTO) 3.77 MIL/uL (4.0-5.2); WHITE BLOOD COUNT (AUTO) 10.3 K/uL (4.3-11.0)
[2020-05-19 06:16] LABS: CALCIUM, SERUM 7.8 mg/dL (8.5-10.1); CREATININE 0.4 mg/dL (0.6-1.3)
[2020-05-19 06:23] LABS: MAGNESIUM 2.2 mg/dL (1.8-2.4)
[2020-05-19 06:42] LABS: POTASSIUM 2.8 mmol/L (3.5-5.1)
[2020-05-19] MEDS: LEVOTHYROXINE SODIUM 50 MCG TABLET PO SCH (07:30)
[2020-05-19] MEDS: PANTOPRAZOLE 40 MG TABLET.DR PO SCH (07:30)
[2020-05-19] MEDS: methylPREDNISolone SOD SUCC 125 MG/2ML VIAL IV SCH ×2 (08:32→16:16)
[2020-05-19] MEDS: MUPIROCIN OINT 2% 22 GM TUBE NS SCH ×2 (08:34→22:52)
[2020-05-19] MEDS: POTASSIUM CL. PREMIX PERIPHER. 50 ML IV SCH ×4 (09:14→14:18)
--- NOTE | 2020-05-19 09:17 | NUR ---
RN notes In bed awake, talking to self with no distress noted. Breathing even and unlabored. On O2 at 5lpm via nasal cannula tolerating well. Alert and oriented with episodes of confusion and disorientation. No complaint of pain or discomfort. Kept clean and dry. Endorsed to next shift for continuity of care.
[2020-05-19] MEDS: VANCOMYCIN 1.5 GM in IV D5W 500 ML IV SCH (10:04)
--- NOTE | 2020-05-19 12:30 | NUR ---
RN NOTES PATIENT TRANSFERRED TO [facility] RM 103, NO SIGNS OF DISTRESS, ALL BELONGINGS WITH PATIENT, BEDSIDE REPORT GIVEN TO DOMINGO ONEAL.
--- NOTE | 2020-05-19 12:30 | NUR ---
RECEIVED PATIENT FROM ICU RAY RN GAVE BEDSIDE REPORT FOR LOLY. PATIENT IS A/O x 2 WITH NO SIGNS OF DISTRESS ON NASAL CANNULA. TENORIO INTACT, PICC LINE ON R UA INTACT RUNNING NS AT 75ML/HR. ORIENTED PATIENT TO HER ROOM, SAFETY MEASURES ARE APPLIED, BED IS LOWEST POSITION LOCKED AND SIDE RAILS UP X 2. CALL LIGHT WITHIN REACH WILL CONTINUE TO MONITOR.
--- NOTE | 2020-05-19 19:33 | NUR ---
MUSIC ADAPTER CLOSED NOTES PATIENT IS A/O x 2 WITH NO SIGNS OF DISTRESS ON NASAL CANNULA. TENORIO INTACT, PICC LINE ON R UA INTACT RUNNING NS AT 75ML/HR. PATIENT KEPT CLEAN AND DRY. NO COMPLAIN OF PAIN AT THIS TIME. CURRENTLY NPO UNTIL SPEECH SWALLOW EVAL. ALL NEEDS, CARE, TREATMENT,AND MEDICATIONS WERE ADMINISTERED ANTICIPATED PER ORDER. SAFETY MEASURES ARE APPLIED, BED IS IN LOW POSITION SIDE RAILS UP X 2. CALL LIGHT WITHIN REACH WILL ENDORSE TO THE BRINE TANK TENDER NURSE.
[2020-05-19] MEDS: ENOXAPARIN SODIUM 40 MG/0.4 ML DISP.SYRIN SQ SCH (22:48)
[2020-05-20] VITALS: BP 129/62
[2020-05-20 04:00] VITALS: BP 132/63
[2020-05-20] MEDS: PIPERACILLIN /TAZOBACTAM 3.375 G in IV D5W 50 ML IV SCH ×4 (05:16→23:57)
[2020-05-20] MEDS: IPRATROPIUM/ALBUTEROL INHALER IH SCH ×2 (05:17→23:57)
[2020-05-20] MEDS: VANCOMYCIN 1.5 GM in IV D5W 500 ML IV SCH ×2 (05:53→21:27)
--- NOTE | 2020-05-20 07:47 | NUR ---
MS RN OPENING NOTES RECEIVED PATIENT RESTING IN BED ALERT AND ORIENTED X3-4. PATIENT IS IN NO APPARENT RESPIRATORY DISTRESS WITH NO COMPLAINS OF PAIN OR DISCOMFORT AT THIS TIME. PT WITH FANY 3 LUMEN PICC LINE INSERTED ON 05/11 RUNNING WITH NS @75 ML / HR. FLUSHING WELL AND PATENT.PATIENT IS NPO AWAITING SPEECH/SWALLOW EVAL D/T EXTUBATED ON 05/18. BED IS AT LOWEST POSITION AND LOCKED WITH CALL LIGHT WITH IN REACH. WILL CONTINUE TO MONITOR
[2020-05-20 08:00] VITALS: BP 133/64
[2020-05-20] MEDS: LEVOTHYROXINE SODIUM 50 MCG TABLET PO SCH (08:06)
[2020-05-20] MEDS: PANTOPRAZOLE 40 MG TABLET.DR PO SCH (08:06)
[2020-05-20] MEDS: MUPIROCIN OINT 2% 22 GM TUBE NS SCH ×2 (09:00→21:29)
[2020-05-20 09:13] LABS: BASOPHILS % (AUTO) 0.2 % (0.0-2.0); HEMATOCRIT 35 % (33-45); HEMOGLOBIN 10.8 g/dL (11.5-14.8); LYMPHOCYTES # (AUTO) 0.6 /CMM (0.8-4.8); LYMPHOCYTES % (AUTO) 10.8 % (20.0-44.0); MEAN CORPUSCULAR HGB CONC 31 g/dl (31.0-36.0); MEAN CORPUSCULAR VOLUME 85 fL (82-100); MONOCYTES # (AUTO) 0.7 /CMM (0.1-1.30); MONOCYTES % (AUTO) 10.9 % (2.0-12.0); NEUTROPHILS # (AUTO) 4.7 /CMM (1.8-8.9); NEUTROPHILS % (AUTO) 78.1 % (43.0-81.0); PLATELET COUNT (AUTO) 235 /CMM (150-450); RED BLOOD CELL COUNT(AUTO) 4.12 MIL/uL (4.0-5.2)
[2020-05-20 09:33] LABS: CALCIUM, SERUM 7.4 mg/dL (8.5-10.1); CREATININE 0.4 mg/dL (0.6-1.3); PHOSPHORUS 2.8 mg/dL (2.5-4.9)
[2020-05-20 09:37] LABS: POTASSIUM 2.6 mmol/L (3.5-5.1)
--- NOTE | 2020-05-20 09:37 | NUR ---
LAB CRITICAL REPORT RECEIVED CALL FROM DAVID AT LAB WITH POTASSIUM 2.6 [address] NUNO
[2020-05-20] MEDS ORDERED: POTASSIUM CHLORIDE 10 MEQ TABLET.SA PO ONE (10:00)
[2020-05-20] MEDS: methylPREDNISolone SOD SUCC 125 MG/2ML VIAL IV SCH (10:49)
[2020-05-20 12:00] VITALS: BP 133/64
[2020-05-20] MEDS: POTASSIUM CL. PREMIX PERIPHER. 50 ML IV SCH ×3 (12:25→13:19)
[2020-05-20 16:00] VITALS: BP 124/76
--- NOTE | 2020-05-20 18:04 | NUR ---
MS RN CLOSING NOTES PATIENT RESTING IN BED A/O x 2 WITH NO SIGNS OF DISTRESS ON NASAL CANNULA. TENORIO INTACT, PICC LINE ON R UA INTACT RUNNING NS AT 75ML/HR. PATIENT KEPT CLEAN AND DRY. NO COMPLAIN OF PAIN AT THIS TIME. CURRENTLY NPO UNTIL SPEECH SWALLOW EVAL. ALL NEEDS, CARE, TREATMENT,AND MEDICATIONS WERE ADMINISTERED ANTICIPATED PER ORDER. SAFETY MEASURES ARE APPLIED, BED IS IN LOW POSITION SIDE RAILS UP X 2. CALL LIGHT WITHIN REACH WILL ENDORSE TO THE CAR WASH MANAGER NURSE.
--- NOTE | 2020-05-20 19:30 | NUR ---
TELE/RN OPENING NOTES RECEIVED PATIENT RESTING IN BED. PATIENT IS ALERT AND ORIENTED X 3. NO SIGNS OF SOB OR RESPIRATORY DISTRESS NOTED. BREATHING IS EVEN AND UNLABORED. PATIENT IN NO SIGNS OF DISTRESS. PATIENT HAS IV ACCESS ON RIGHT UA PICC RUNNING NS AT 75 ML/HR. SAFETY MEASURES ARE IN PLACE, BED IS LOCKED AND PLACED IN THE LOW POSITION, SIDE RAILS UP X 2. CALL LIGHT IS WITHIN REACH. WILL MONITOR THROUGH OUT SHIFT.
[2020-05-20 20:00] VITALS: BP 130/68
--- NOTE | 2020-05-20 21:10 | NUR ---
MS/RN NOTES RBIAN COX, PATIENT HAS ORDER FOR VANCO TROUGH TONIGHT. PENDING SEED PRODUCTION FIELD SUPERVISOR.
[2020-05-20] MEDS: ACETAMINOPHEN 325 MG TABLET PO PRN (21:29)
[2020-05-20] MEDS: ENOXAPARIN SODIUM 40 MG/0.4 ML DISP.SYRIN SQ SCH (21:31)
[2020-05-21] VITALS: BP 130/68
[2020-05-21 04:00] VITALS: BP 142/71
[2020-05-21] MEDS: IPRATROPIUM/ALBUTEROL INHALER IH SCH ×3 (05:45→18:17)
[2020-05-21] MEDS: PIPERACILLIN /TAZOBACTAM 3.375 G in IV D5W 50 ML IV SCH ×2 (05:45→13:14)
--- NOTE | 2020-05-21 06:35 | NUR ---
MS/RN CLOSING NOTES PATIENT RESTING IN BED. PATIENT IS ALERT AND ORIENTED X 3. NO SIGNS OF SOB OR RESPIRATORY DISTRESS NOTED. BREATHING IS EVEN AND UNLABORED. PATIENT IN NO SIGNS OF DISTRESS. PATIENT HAS IV ACCESS ON RIGHT UA PICC RUNNING NS AT 75 ML/HR. TENORIO CATH IS IN PLACE DRAINING YELLOW URINE. ALL PATIENT NEEDS HAVE BEEN MET DURING SHIFT. SAFETY MEASURES ARE IN PLACE, BED IS LOCKED AND PLACED IN THE LOW POSITION, SIDE RAILS UP X 2. CALL LIGHT IS WITHIN REACH. WILL ENDORSE CARE TO DAY SHIFT NURSE.
--- NOTE | 2020-05-21 07:30 | NUR ---
DEPUTY BAILIFF NOTES RECEIVED PATIENT RESTING IN BED. PATIENT IS ALERT AND ORIENTED X 3. NOT IN ANY ACUTE DISTRESS. BREATHING IS EVEN AND UNLABORED. PATIENT IN NO SIGNS OF DISTRESS. PATIENT HAS IV ACCESS ON RIGHT UA PICC RUNNING NS AT 75 ML/HR. SAFETY MEASURES ARE IN PLACE, BED IS LOCKED AND PLACED IN THE LOW POSITION, SIDE RAILS UP X 2. CALL LIGHT IS WITHIN REACH. WILL CONTINUE TO MONITOR.
[2020-05-21 08:00] VITALS: BP 112/64
[2020-05-21 08:05] LABS: BASOPHILS % (AUTO) 0.2 % (0.0-2.0); HEMATOCRIT 36 % (33-45); HEMOGLOBIN 11.3 g/dL (11.5-14.8); LYMPHOCYTES # (AUTO) 0.6 /CMM (0.8-4.8); LYMPHOCYTES % (AUTO) 12.2 % (20.0-44.0); MEAN CORPUSCULAR HGB CONC 32 g/dl (31.0-36.0); MEAN CORPUSCULAR VOLUME 85 fL (82-100); MONOCYTES # (AUTO) 0.7 /CMM (0.1-1.30); NEUTROPHILS # (AUTO) 3.5 /CMM (1.8-8.9); NEUTROPHILS % (AUTO) 73.6 % (43.0-81.0); PLATELET COUNT (AUTO) 235 /CMM (150-450); RED BLOOD CELL COUNT(AUTO) 4.22 MIL/uL (4.0-5.2); WHITE BLOOD COUNT (AUTO) 4.7 K/uL (4.3-11.0)
[2020-05-21 08:19] LABS: CALCIUM, SERUM 7.9 mg/dL (8.5-10.1); CREATININE 0.4 mg/dL (0.6-1.3); MAGNESIUM 2.1 mg/dL (1.8-2.4); PHOSPHORUS 2.7 mg/dL (2.5-4.9); POTASSIUM 3.4 mmol/L (3.5-5.1)
--- NOTE | 2020-05-21 08:25 | NUR ---
PT. IS AWAKE AND FOLLOW COMMANDS REFUSED ABG. NO SOB NOTED. Addendum: 05/21/20 at 0826 by EFRAIN CHAPARRO RT Amended: Links added.
[2020-05-21] MEDS: PANTOPRAZOLE 40 MG TABLET.DR PO SCH (09:08)
[2020-05-21] MEDS: methylPREDNISolone SOD SUCC 125 MG/2ML VIAL IV SCH (09:08)
[2020-05-21] MEDS: LEVOTHYROXINE SODIUM 50 MCG TABLET PO SCH (09:08)
[2020-05-21] MEDS: MUPIROCIN OINT 2% 22 GM TUBE NS SCH ×2 (09:09→20:06)
[2020-05-21] MEDS: POTASSIUM CL. PREMIX PERIPHER. 50 ML IV SCH ×2 (10:57→11:03)
[2020-05-21 12:00] VITALS: BP_SYST 112; BP_SYST 115; BP_DIAS 58; BP_DIAS 64
[2020-05-21 16:00] VITALS: BP 118/63
--- NOTE | 2020-05-21 18:26 | NUR ---
CLAY TRANSPORTER CLOSING NOTES PATIENT RESTING IN BED. PATIENT IS ALERT AND ORIENTED X 3. NOT IN ANY ACUTE DISTRESS. IV Addendum: 05/21/20 at 1831 by SLOAN VILLARREAL RN CLARIFICATION OF DOCUMENTATION PT NOT IN ANY ACUTE DISTRESS. IV ON RIGHT UPPER ARM INTACT AND FLUSHED WELL. ALL NEEDS ATTENDED TO. WILL ENDORSE TO NEXT SHIFT FOR LOLY.
--- NOTE | 2020-05-21 19:10 | NUR ---
RN OPENING NOTE RECEIVED PATIENT IN BED RESTING ALERT ORIENTED X3 VERBALLY RESPONSIVE NO SOB NOT ACUTE DISTRESS NOTED ON 5L OXYGEN VIA NASAL CANNULA,O2:96% IV SITE IS ON RIGHT UPPER ARM PICC LINE INTACT PATENT IV HYDRATION RUNNING,NS AT 75CC/HR CALL LIGHT WITHIN REACH,SAFETY MEASURE IMPLEMENT,CONTINUE TO MONITOR.
--- NOTE | 2020-05-21 19:20 | NUR ---
RN NOTE PATIENT ON TENORIO CATHETER URINE DRAINING YELLOW/CLEAR BY GRAVITY CONTINUE TO MONITOR
[2020-05-21 20:00] VITALS: BP 131/74
[2020-05-21] MEDS: ENOXAPARIN SODIUM 40 MG/0.4 ML DISP.SYRIN SQ SCH (20:36)
[2020-05-22] VITALS: BP 133/75
[2020-05-22 04:00] VITALS: BP 148/87
--- NOTE | 2020-05-22 07:08 | NUR ---
RN CLOSING NOTE PATIENT REMAINS ON ALERT ORIENTED X3 VERBALLY RESPONSIVE ON 5 L OXYGEN VIA NASAL CANNULA,O2:94% ON MED SURG MONITORING,PICC LINE IS ON RIGHT UPPER ARM INTACT PATENT ON TENORIO CATHERTER URINE DRINING YELLOW/CLEAR,KEPT CLEAN AND DRY ALL THE TIME,ALL NEEDS MET ENDORSE NEXT COMING SHIFT FOR CONTINUATION OF CARE.
--- NOTE | 2020-05-22 07:23 | NUR ---
RN OPENING NOTE RECEIVED PATIENT IN BED RESTING ALERT ORIENTED X3 VERBALLY RESPONSIVE NO SOB NOT ACUTE DISTRESS NOTED ON 5L OXYGEN VIA NASAL CANNULA,O2:96% IV SITE IS ON RIGHT UPPER ARM PICC LINE INTACT PATENT AND PATENT. IV HYDRATION RUNNING NS AT 75CC/HR. ALL SAFETY MEASURES IN PLACE PER HOSPITAL POLICY. BED LOCKED IN LOWEST POSITION. CALL LIGHT WITHIN REACH. WILL CONTINUE TO MONITOR AND PROVIDE CARE.
[2020-05-22] MEDS: PANTOPRAZOLE 40 MG TABLET.DR PO SCH (07:30)
[2020-05-22] MEDS: LEVOTHYROXINE SODIUM 50 MCG TABLET PO SCH (07:30)
[2020-05-22 07:43] LABS: BASOPHILS % (AUTO) 0.2 % (0.0-2.0); HEMATOCRIT 35 % (33-45); HEMOGLOBIN 11.2 g/dL (11.5-14.8); LYMPHOCYTES # (AUTO) 0.6 /CMM (0.8-4.8); LYMPHOCYTES % (AUTO) 13.9 % (20.0-44.0); MEAN CORPUSCULAR HGB CONC 32 g/dl (31.0-36.0); MEAN CORPUSCULAR VOLUME 84 fL (82-100); MONOCYTES # (AUTO) 0.6 /CMM (0.1-1.30); MONOCYTES % (AUTO) 13.5 % (2.0-12.0); NEUTROPHILS # (AUTO) 3.4 /CMM (1.8-8.9); NEUTROPHILS % (AUTO) 72.4 % (43.0-81.0); PLATELET COUNT (AUTO) 265 /CMM (150-450); RED BLOOD CELL COUNT(AUTO) 4.21 MIL/uL (4.0-5.2); WHITE BLOOD COUNT (AUTO) 4.6 K/uL (4.3-11.0)
[2020-05-22 08:00] VITALS: BP 144/75
[2020-05-22 08:04] LABS: CALCIUM, SERUM 8.1 mg/dL (8.5-10.1); CREATININE 0.3 mg/dL (0.6-1.3); MAGNESIUM 2.2 mg/dL (1.8-2.4); PHOSPHORUS 2.6 mg/dL (2.5-4.9); POTASSIUM 3.4 mmol/L (3.5-5.1)
[2020-05-22] MEDS: methylPREDNISolone SOD SUCC 125 MG/2ML VIAL IV SCH ×2 (08:16→09:00)
[2020-05-22] MEDS: IV NS 0.9% 1,000 ML IV PRN (08:19)
[2020-05-22] MEDS: MUPIROCIN OINT 2% 22 GM TUBE NS SCH ×2 (08:37→20:03)
--- NOTE | 2020-05-22 09:00 | NUR ---
UNABLE TO GIVE 0900 IV MED DUE TO OCCLUDED PICC LINE. AWAITING PICC LINE NURSE TO ASSESS.
[2020-05-22] MEDS: POTASSIUM CL. PREMIX PERIPHER. 50 ML IV SCH ×4 (10:00→19:49)
--- NOTE | 2020-05-22 11:00 | NUR ---
UNABLE TO GIVE IV POTASSIUM DUE TO PICC LINE OCCLUSION, AWAITING PICC LINE NURSE TO ASSESS
[2020-05-22] MEDS: IPRATROPIUM/ALBUTEROL INHALER IH SCH ×2 (12:00→17:30)
[2020-05-22 16:00] VITALS: BP 141/71
--- NOTE | 2020-05-22 17:27 | NUR ---
PICC LINE NURSE ARRIVED AND ASSESS PICC LINE, STATED THAT THE TWO SMALL ARE OCCLUDED BUT THE THIRD BIG IS USABLE. FLUSHED TO CHECK FOR PATENCY. RESTARTED IV FLUIDS.
--- NOTE | 2020-05-22 18:31 | NUR ---
RN CLOSING NOTE RECEIVED PATIENT IN BED RESTING ALERT ORIENTED X3 VERBALLY RESPONSIVE NO SOB NOT ACUTE DISTRESS NOTED ON 4L OXYGEN VIA NASAL CANNULA, O2 SATURATION 97% IV SITE IS ON RIGHT UPPER ARM PICC LINE INTACT AND PATENT, PARTIAL OCCLUSION REPORTED BY PICC LINE NURSE. IV HYDRATION RUNNING NS AT 75CC/HR. ALL SAFETY MEASURES IN PLACE PER HOSPITAL POLICY. BED LOCKED IN LOWEST POSITION. CALL LIGHT WITHIN REACH. WILL ENDORSE TO MEDIA/INSTRUCTIONAL DESIGNER NURSE FOR LOLY.
--- NOTE | 2020-05-22 19:10 | NUR ---
MS/RN OPENING NOTE RECEIVED PATIENT IN BED RESTING A/O X3. VERBALLY RESPONSIVE AND ABLE TO MAKE NEEDS KNOWN. NO SOB NOT ACUTE DISTRESS. ON 4L OXYGEN VIA NASAL CANNULA, O2 SATURATION 97%. IV ACCESS ON RIGHT UPPER ARM PICC LINE INTACT AND PATENT, PARTIAL OCCLUSION. REPORTED BY PICC LINE NURSE. IVF NS AT 75CC/HR. ALL SAFETY MEASURES IN PLACE PER HOSPITAL POLICY. BED LOCKED IN LOWEST POSITION. CALL LIGHT WITHIN REACH. WILL CONTINUE TO MONITOR ACCORDINGLY.
[2020-05-22] MEDS: ENOXAPARIN SODIUM 40 MG/0.4 ML DISP.SYRIN SQ SCH (20:02)
[2020-05-22 22:00] VITALS: BP 134/70
[2020-05-23] MEDS: IPRATROPIUM/ALBUTEROL INHALER IH SCH ×3 (00:10→23:25)
[2020-05-23 04:00] VITALS: BP 142/73
--- NOTE | 2020-05-23 06:52 | NUR ---
MS/RN CLOSING NOTES: RECEIVED PATIENT IN BED RESTING A/O X3. VERBALLY RESPONSIVE AND ABLE TO MAKE NEEDS KNOWN. NO SOB NOT ACUTE DISTRESS. ON 4L OXYGEN VIA NASAL CANNULA, O2 SATURATION 94-95%. IV ACCESS ON RIGHT UPPER ARM PICC LINE INTACT AND PATENT, PARTIAL OCCLUSION. REPORTED BY PICC LINE NURSE. STILL OCCLUDED. IVF NS AT 75CC/HR INFUSING ON ONE LUMEN. ALL SAFETY MEASURES IN PLACE PER HOSPITAL POLICY. BED LOCKED IN LOWEST POSITION. ALL MEDS GIVEN ORDERED. ALL NEEDS MET AND RENDERED. CALL LIGHT WITHIN REACH. WILL ENDORSE TO DAY SHIFT FOR LOLY.
--- NOTE | 2020-05-23 07:15 | NUR ---
PT AWAKE AND ORIENTED X2. NC RUNNING 4 L/MIN ORDERED. NO SOB OR DISTRESS. SKIN WARM FLUSHED. HOB ELEVATED, FANY PICC FLUSHED AND INTACT. NS RUNNING ORDERED. WILL MONITOR VS AND RESP STATUS THROUGHOUT THE DAY. WILL ASSIST W TURNING Q2H AND REPORT TO MD NEEDED. RAILS UP X2, HOB ELEVATED, BED LOW, LOCKED, CALL LIGHT IN REACH. ALL HOSPITAL POLICY SAFETY PRECAUTIONS IMPLEMENTED.
[2020-05-23 07:32] LABS: BASOPHILS % (AUTO) 0.2 % (0.0-2.0); EOSINOPHILS % (AUTO) 0.4 % (0.0-6.0); HEMATOCRIT 37 % (33-45); HEMOGLOBIN 11.7 g/dL (11.5-14.8); LYMPHOCYTES # (AUTO) 0.6 /CMM (0.8-4.8); LYMPHOCYTES % (AUTO) 12.6 % (20.0-44.0); MEAN CORPUSCULAR HGB CONC 31 g/dl (31.0-36.0); MEAN CORPUSCULAR VOLUME 84 fL (82-100); MONOCYTES # (AUTO) 0.6 /CMM (0.1-1.30); MONOCYTES % (AUTO) 13.1 % (2.0-12.0); NEUTROPHILS # (AUTO) 3.6 /CMM (1.8-8.9); NEUTROPHILS % (AUTO) 73.7 % (43.0-81.0); PLATELET COUNT (AUTO) 261 /CMM (150-450); RED BLOOD CELL COUNT(AUTO) 4.44 MIL/uL (4.0-5.2); WHITE BLOOD COUNT (AUTO) 4.9 K/uL (4.3-11.0)
[2020-05-23 07:57] LABS: CALCIUM, SERUM 8.3 mg/dL (8.5-10.1); CREATININE 0.3 mg/dL (0.6-1.3); MAGNESIUM 2.1 mg/dL (1.8-2.4); PHOSPHORUS 2.5 mg/dL (2.5-4.9); POTASSIUM 3.4 mmol/L (3.5-5.1)
[2020-05-23 10:00] VITALS: BP 112/64
[2020-05-23] MEDS ORDERED: POTASSIUM CHLORIDE 20 MEQ POWDER PACKET PO ONE (10:30)
[2020-05-23] MEDS: LEVOTHYROXINE SODIUM 50 MCG TABLET PO SCH (10:54)
[2020-05-23] MEDS: MUPIROCIN OINT 2% 22 GM TUBE NS SCH ×2 (10:54→20:35)
[2020-05-23] MEDS: PANTOPRAZOLE 40 MG TABLET.DR PO SCH (10:54)
[2020-05-23] MEDS: methylPREDNISolone SOD SUCC 125 MG/2ML VIAL IV SCH (10:54)
[2020-05-23 16:00] VITALS: BP 153/74
--- NOTE | 2020-05-23 19:15 | NUR ---
RN OPENING NOTES Received patient, awake resting on bed. Denies any discomfort at this time. on O2 via NC @ 4LPM, saturating well, no respiratory distress noted. Kept on bed clean, dry and comfortable. On fall and aspiration precautions. Will continue to monitor accordingly.
--- NOTE | 2020-05-23 19:37 | NUR ---
TURNED Q2H AND REPOSITIONED AND ELEVATED EXTREMITIES.
[2020-05-23] MEDS: ENOXAPARIN SODIUM 40 MG/0.4 ML DISP.SYRIN SQ SCH (20:34)
[2020-05-24] MEDS: IPRATROPIUM/ALBUTEROL INHALER IH SCH ×3 (05:42→18:00)
[2020-05-24] MEDS: IV NS 0.9% 1,000 ML IV PRN ×2 (05:43→09:00)
--- NOTE | 2020-05-24 06:37 | NUR ---
RN CLOSING NOTES Pt asleep on bed. No new unusualities noted. Afebrile the whole shift. No new complaints made. All nursing needs attended, due meds given as ordered. Kept on bed clean, dry and comfortable. Endorsed.
--- NOTE | 2020-05-24 07:30 | NUR ---
PT RECEIVED AFTER REPORT RECEIVED FROM NOC RN. PT RESTING COMFORTABLY IN BED WITH EYES CLOSED. NO S/S OR C/O PAIN OR DISTRESS NOTED. SIDE RAILS UP X2, CALL LIGHT LEFT WITHIN REACH. WILL CONTINUE PLAN OF CARE.
[2020-05-24] MEDS: methylPREDNISolone SOD SUCC 125 MG/2ML VIAL IV SCH (08:37)
[2020-05-24] MEDS: PANTOPRAZOLE 40 MG TABLET.DR PO SCH (08:37)
[2020-05-24] MEDS: LEVOTHYROXINE SODIUM 50 MCG TABLET PO SCH (08:37)
[2020-05-24 12:00] LABS: CALCIUM, SERUM 8.5 mg/dL (8.5-10.1); CREATININE 0.4 mg/dL (0.6-1.3)
[2020-05-24] MEDS: MUPIROCIN OINT 2% 22 GM TUBE NS SCH ×2 (12:53→20:39)
--- NOTE | 2020-05-24 18:55 | NUR ---
CHANGE OF SHIFT REPORT PT RESTING COMFORTABLY IN BED. NO S/S OR C/O PAIN OR DISTRESS NOTED. SIDE RAILS UP X2, CALL LIGHT LEFT WITHIN REACH. SEMI FOWLERS, BED POSITIONED LOW. PT CALM AND COOPERATIVE. PT NOT COMPLIANT WITH MEDICATIONS. PT KEPT CLEAN, DRY, AND COMFORTABLE. NO SIGNIFICANT CHANGES SINCE PREVIOUS SHIFT. WILL GIVE REPORT TO NICOLE LANE.
--- NOTE | 2020-05-24 19:20 | NUR ---
MS RN OPENING NOTES PATIENT AWAKE IN BED. A/OX3. ON 4L NC; NO S/S OF ACUTE RESPIRATORY DISTRESS; BREATHING IS EVEN AND UNLABORED. NO C/O PAIN. PICC LINE PRESENT ON RIGHT UPPER ARM WITH NS RUNNING AT 75 ML/HR. CONTACT/DROPLET PRECAUTIONS IN PLACE FOR COVID. SAFETY MEASURES IN PLACE AND PATIENT'S NEEDS MET. BED LOCKED, HOB ELEVATED, SIDE RAILS X2, CALL LIGHT WITHIN REACH. WILL CONTINUE TO MONITOR.
[2020-05-24 20:00] VITALS: BP 138/80
[2020-05-24] MEDS: ENOXAPARIN SODIUM 40 MG/0.4 ML DISP.SYRIN SQ SCH (20:38)
[2020-05-25] MEDS: IPRATROPIUM/ALBUTEROL INHALER IH SCH ×3 (00:16→20:12)
[2020-05-25] MEDS: IV NS 0.9% 1,000 ML IV PRN (03:47)
[2020-05-25 04:00] VITALS: BP 131/63
[2020-05-25 06:17] LABS: CALCIUM, SERUM 8.2 mg/dL (8.5-10.1); CREATININE 0.3 mg/dL (0.6-1.3); MAGNESIUM 1.9 mg/dL (1.8-2.4); PHOSPHORUS 3.9 mg/dL (2.5-4.9); POTASSIUM 4.1 mmol/L (3.5-5.1)
[2020-05-25 06:23] LABS: BASOPHILS % (AUTO) 0.2 % (0.0-2.0); EOSINOPHILS % (AUTO) 0.3 % (0.0-6.0); HEMATOCRIT 35 % (33-45); LYMPHOCYTES # (AUTO) 1.2 /CMM (0.8-4.8); LYMPHOCYTES % (AUTO) 22.3 % (20.0-44.0); MEAN CORPUSCULAR HGB CONC 31 g/dl (31.0-36.0); MEAN CORPUSCULAR VOLUME 84 fL (82-100); MONOCYTES # (AUTO) 0.7 /CMM (0.1-1.30); MONOCYTES % (AUTO) 13.1 % (2.0-12.0); NEUTROPHILS # (AUTO) 3.3 /CMM (1.8-8.9); NEUTROPHILS % (AUTO) 64.1 % (43.0-81.0); PLATELET COUNT (AUTO) 272 /CMM (150-450); RED BLOOD CELL COUNT(AUTO) 4.18 MIL/uL (4.0-5.2); WHITE BLOOD COUNT (AUTO) 5.2 K/uL (4.3-11.0)
[2020-05-25] MEDS: LEVOTHYROXINE SODIUM 50 MCG TABLET PO SCH (06:44)
[2020-05-25] MEDS: PANTOPRAZOLE 40 MG TABLET.DR PO SCH (06:44)
--- NOTE | 2020-05-25 06:59 | NUR ---
MS RN CLOSING NOTES PATIENT SLEEPING, AWAKENS TO NAME/TOUCH. A/OX3. ON 3L NC; NO S/S OF ACUTE RESPIRATORY DISTRESS; BREATHING IS EVEN AND UNLABORED. NO S/S OF PAIN NOTED. PICC LINE PRESENT ON RIGHT UPPER ARM WITH NS RUNNING AT 75 ML/HR. SAFETY MEASURES IN PLACE AND PATIENT'S NEEDS MET. BED LOCKED, HOB ELEVATED, SIDE RAILS X2, CALL LIGHT WITHIN REACH. WILL ENDORSE TO DAY SHIFT RN PLAN OF CARE.
--- NOTE | 2020-05-25 07:10 | NUR ---
MS RN NOTE RECEIVED CRITICAL LAB VALUE. CO2 51. SPACE SYSTEMS OPERATIONS CRAFTSMAN PAYROLL ACCOUNTING CLERK, JENI SAHNI MADE AWARE.
[2020-05-25] MEDS: MUPIROCIN OINT 2% 22 GM TUBE NS SCH (09:00)
[2020-05-25] MEDS: methylPREDNISolone SOD SUCC 125 MG/2ML VIAL IV SCH (10:21)
--- NOTE | 2020-05-25 18:18 | NUR ---
MS RN CLOSING NOTES PATIENT RESTING IN BED A/O x 2 ON 02 @3L VIA NASAL CANNULA, NO S/S OF ACUTE RESPIRATORY DISTRESS, TENORIO IN PLACE WITH YELLOW CLEAR URINE OUTPUIT NOTED AT 1000 CC THIS SHFIT. PICC LINE ON RT UA INTACT RUNNING NS AT 75ML/HR. PATIENT KEPT CLEAN AND DRY. NO C/O OF PAIN OR DISCOMFORT NOTED AT THIS TIME ALL SAFETY MEASURES IN PLACE BED IS IN LOW POSITION SIDE RAILS UP X 2. CALL LIGHT WITHIN REACH WILL ENDORSE TO ONCOMING SHIFT
--- NOTE | 2020-05-25 20:13 | NUR ---
combivent dose administered. past scheduled doses cancelled on emar.
[2020-05-25] MEDS: ENOXAPARIN SODIUM 40 MG/0.4 ML DISP.SYRIN SQ SCH (22:21)
[2020-05-25 23:48] VITALS: BP 112/56
[2020-05-25 23:50] VITALS: BP 112/56
[2020-05-26] MEDS: IPRATROPIUM/ALBUTEROL INHALER IH SCH ×6 (00:44→23:11)
[2020-05-26 07:21] LABS: BASOPHILS % (AUTO) 0.2 % (0.0-2.0); EOSINOPHILS % (AUTO) 0.2 % (0.0-6.0); HEMATOCRIT 34 % (33-45); HEMOGLOBIN 10.7 g/dL (11.5-14.8); LYMPHOCYTES # (AUTO) 1.2 /CMM (0.8-4.8); LYMPHOCYTES % (AUTO) 22.1 % (20.0-44.0); MEAN CORPUSCULAR HGB CONC 31 g/dl (31.0-36.0); MEAN CORPUSCULAR VOLUME 84 fL (82-100); MONOCYTES # (AUTO) 0.8 /CMM (0.1-1.30); NEUTROPHILS # (AUTO) 3.4 /CMM (1.8-8.9); NEUTROPHILS % (AUTO) 63.5 % (43.0-81.0); PLATELET COUNT (AUTO) 283 /CMM (150-450); RED BLOOD CELL COUNT(AUTO) 4.07 MIL/uL (4.0-5.2); WHITE BLOOD COUNT (AUTO) 5.4 K/uL (4.3-11.0)
--- NOTE | 2020-05-26 07:30 | NUR ---
MS/RN OPENING NOTE Received patient sleeping in bed, A&O x 3, easily arousable to touch and verbal stimulation. No complaints of pain/discomfort at this time. Breathing even and non-labored on 4 L oxygen via NC, saturating at 93%. No respiratory or cardiac distress noted. FANY picc line access noted, patent and intact on red port, and flushing well. Bed locked to its lowest position, side rails x 2 up, call light in hand. Will continue with current medical management.
[2020-05-26 07:48] LABS: CALCIUM, SERUM 8.4 mg/dL (8.5-10.1); CREATININE 0.3 mg/dL (0.6-1.3); MAGNESIUM 2.1 mg/dL (1.8-2.4); PHOSPHORUS 3.2 mg/dL (2.5-4.9); POTASSIUM 3.8 mmol/L (3.5-5.1)
[2020-05-26 08:00] VITALS: BP 109/46
[2020-05-26] MEDS: PANTOPRAZOLE 40 MG TABLET.DR PO SCH (08:07)
[2020-05-26] MEDS: methylPREDNISolone SOD SUCC 125 MG/2ML VIAL IV SCH (08:07)
[2020-05-26] MEDS: LEVOTHYROXINE SODIUM 50 MCG TABLET PO SCH (08:07)
--- NOTE | 2020-05-26 09:00 | NUR ---
TELE/RN NOTE Lab called for critical result of CO2: 48, which is trending down from yesterday's results. Notified Dr. Vazquez, no new orders at this time. Patient is on 4 L oxygen via NC, saturating at 94%. No respiratory distress noted. Patient appears well and comfortable.
[2020-05-26 12:00] VITALS: BP 125/45
--- NOTE | 2020-05-26 17:07 | NUR ---
MS/RN NOTE Patient refused combivent inhaler. Educated patient regarding risks and benefits of medication, patient insists on refusal and states "No, I don't need it."
--- NOTE | 2020-05-26 18:52 | NUR ---
MS/RN CLOSING NOTE Patient resting in bed, A&O x 2. Denied any pain/discomfort throughout shift. Breathing even and non-labored on 2 L oxygen via NC, saturating at 90-93%. No respiratory or cardiac distress noted. FANY picc line access remain patent and intact on red port, and flushing well. Fall precautions maintained. Will endorse to manufacturing shift supervisor nurse.
--- NOTE | 2020-05-26 19:30 | NUR ---
MS/RN OPENING NOTES RECEIVED PATIENT IN BED RESTING. PATIENT IS ALERT AND ORIENTED X 2. PATIENT BREATHING IS EVEN AND UNLABORED. NO SIGNS OF SOB OR RESPIRATORY DISTRESS NOTED. PATIENT IN NO SIGNS OF DISTRESS. IV ACCESS ON FANY PICC, RED PORT FLUSHING ONLY. SAFETY MEASURES ARE IN PLACE, BED IS LOCKED AND PLACED IN THE LOW POSITION, SIDE RAILS UP X 2, CALL LIGHT WITH IN REACH. WILL CONTINUE TO MONITOR THROUGH OUT SHIFT.
[2020-05-26 20:00] VITALS: BP 136/65
[2020-05-26] MEDS: ENOXAPARIN SODIUM 40 MG/0.4 ML DISP.SYRIN SQ SCH (21:18)
[2020-05-27 04:00] VITALS: BP 142/68
[2020-05-27] MEDS: IPRATROPIUM/ALBUTEROL INHALER IH SCH ×3 (05:08→17:11)
--- NOTE | 2020-05-27 06:35 | NUR ---
MS/RN CLOSING NOTES PATIENT IN BED RESTING. PATIENT IS ALERT AND ORIENTED X 2-3. PATIENT BREATHING IS EVEN AND UNLABORED. NO SIGNS OF SOB OR RESPIRATORY DISTRESS NOTED. PATIENT IN NO SIGNS OF DISTRESS. IV ACCESS ON FANY PICC, RED PORT FLUSHING ONLY.TENORIO CATH OUTPUT 2500CC. ALL NEEDS HAVE BEEN MET DURING SHIFT. SAFETY MEASURES ARE IN PLACE, BED IS LOCKED AND PLACED IN THE LOW POSITION, SIDE RAILS UP X 2, CALL LIGHT WITH IN REACH. WILL ENDORSE CARE TO DAY SHIFT NURSE.
[2020-05-27] MEDS: ACETAMINOPHEN 325 MG TABLET PO PRN (06:48)
[2020-05-27 06:58] LABS: BASOPHILS % (AUTO) 0.4 % (0.0-2.0); EOSINOPHILS % (AUTO) 0.2 % (0.0-6.0); HEMATOCRIT 34 % (33-45); HEMOGLOBIN 10.6 g/dL (11.5-14.8); LYMPHOCYTES # (AUTO) 1.3 /CMM (0.8-4.8); LYMPHOCYTES % (AUTO) 20.7 % (20.0-44.0); MEAN CORPUSCULAR HGB CONC 31 g/dl (31.0-36.0); MEAN CORPUSCULAR VOLUME 83 fL (82-100); MONOCYTES # (AUTO) 0.8 /CMM (0.1-1.30); MONOCYTES % (AUTO) 12.2 % (2.0-12.0); NEUTROPHILS # (AUTO) 4.2 /CMM (1.8-8.9); NEUTROPHILS % (AUTO) 66.5 % (43.0-81.0); PLATELET COUNT (AUTO) 280 /CMM (150-450); RED BLOOD CELL COUNT(AUTO) 4.08 MIL/uL (4.0-5.2); WHITE BLOOD COUNT (AUTO) 6.3 K/uL (4.3-11.0)
[2020-05-27 07:29] LABS: CALCIUM, SERUM 8.4 mg/dL (8.5-10.1); CREATININE 0.3 mg/dL (0.6-1.3); MAGNESIUM 1.9 mg/dL (1.8-2.4); PHOSPHORUS 3.4 mg/dL (2.5-4.9); POTASSIUM 3.6 mmol/L (3.5-5.1)
--- NOTE | 2020-05-27 07:45 | NUR ---
MS DOMINGO OPEN NOTES PATIENT IS A/O X 2-3 WITH NO SIGNS OF DISTRESS ON 4L OF NASAL CANNULA. R UA PICC LINE. NO COMPLAIN OF PAIN AT THIS TIME. TENORIO CATHETER INTACT. SAFETY MEASURES ARE APPLIED, BED IS IN LOW POSITION SIDE RAILS UP X 2. CALL LIGHT WITHIN REACH. WILL CONTINUE TO MONITOR.
[2020-05-27] MEDS: LEVOTHYROXINE SODIUM 50 MCG TABLET PO SCH (08:33)
[2020-05-27] MEDS: PANTOPRAZOLE 40 MG TABLET.DR PO SCH (08:34)
[2020-05-27] MEDS: methylPREDNISolone SOD SUCC 125 MG/2ML VIAL IV SCH (08:34)
[2020-05-27 12:00] VITALS: BP 142/68
[2020-05-27] MEDS ORDERED: LEVO50TA PO (16:02)
[2020-05-27] MEDS ORDERED: ENOX40DI SQ (16:02)
--- NOTE | 2020-05-27 18:30 | NUR ---
DC ORDER FOR TENORIO CATH AND PICC LINE BY DR NUNO FOR DISCHARGE TO SNF.
--- NOTE | 2020-05-27 20:00 | NUR ---
DISCHARGE NOTES PATIENT VITALS ARE WITHIN NORMAL LIMIT, AFEBRILE WITH NO SIGNS OF DISTRESS ON 4L OF NASAL CANNULA. CALLED [facility] TO GIVE REPORT FOR CONTINUITY OF CARE. SPOKE WITH DOMINGO SANTIAGO. REMOVED TENORIO AND PICC LINE WITH NO COMPLICATIONS. DC ORDERED BY DR. NUNO. DISCHARGE PAPER WORK WAS SIGNED BY TWO RN'S AND BELONGING LIST WAS SIGNED AND COMPLETED BY TWO RNS. PATIENT LEFT VIA GURNEY BY AMBULANCE.
== END 2020-05-27 20:00 | DRG 208 ==
LOC: ER 16:51 → TRANSITION 20:27 → UNDOADMIN 20:27 → ICU 21:00 → MEDSG1 05-19 12:00
PROVIDERS: ATTEND Student in an Organized Health Care Education/Training Program
PROC: 5A1945Z Respiratory Ventilation, 24-96 Consecutive Hours (ICD-10-PCS; principal; 2020-05-15)
PROC: 0BH18EZ Insertion of Endotracheal Airway into Trachea, Via Natural or Artificial Opening Endoscopic (ICD-10-PCS; 2020-05-15)
PROC: 02HV33Z Insertion of Infusion Device into Superior Vena Cava, Percutaneous Approach (ICD-10-PCS; 2020-05-23)
PROC: B548ZZA Ultrasonography of Superior Vena Cava, Guidance (ICD-10-PCS; 2020-05-23)
DX: U07.1 COVID-19 (principal); J96.22 Acute and chronic respiratory failure with hypercapnia; J96.21 Acute and chronic respiratory failure with hypoxia; J12.89 Other viral pneumonia; G92 Toxic encephalopathy; N17.0 Acute kidney failure with tubular necrosis; E66.2 Morbid (severe) obesity with alveolar hypoventilation; J44.0 Chronic obstructive pulmonary disease with (acute) lower respiratory infection; E44.0 Moderate protein-calorie malnutrition; K21.9 Gastro-esophageal reflux disease without esophagitis; E11.9 Type 2 diabetes mellitus without complications; E78.5 Hyperlipidemia, unspecified; E03.9 Hypothyroidism, unspecified; D64.9 Anemia, unspecified; Z91.013 Allergy to seafood; Z91.018 Allergy to other foods; Z91.048 Other nonmedicinal substance allergy status; Z79.51 Long term (current) use of inhaled steroids; Z79.899 Other long term (current) drug therapy; Z66 Do not resuscitate; E87.6 Hypokalemia; I10 Essential (primary) hypertension; Z87.891 Personal history of nicotine dependence
CPT/HCPCS: 31720; 36415; 36600; 70450-TC; 71045-TC; 80048-TC; 80061-TC; 80076-TC; 80202-TC; 81001; 82803-TC; 83605-TC; 83735-TC; 83880; 84100-TC; 84132-TC; 84439-TC; 84443-TC; 84484-TC; 85025-TC; 85730-TC; 86140-TC; 87040-TC; 87081-TC; 87086-TC; 92521; 92526; 93307-TC; 94002-TC; 94003-TC; 94799-TC; A6253; C1751; G0378; J1650; J2185; J2543; J2930; J3010; J3370; J3480; J3490; J7030; J7050; J7060; U0003

== ENCOUNTER 2021-06-03 13:35 | Inpatient (IN) | payer MEDICARE, OTHER ==
[~2021-06-03] VITALS: Ht 170.2 cm; Wt 117.9 kg
[~2021-06-03 13:35] MED LIST changes: -ALBU2.5V38 IH; -ATOR10TA PO; -AZIT500V6 IV; +BISA10SU11 RC; +BUDE10.2 IH; +CALC1TAB30 PO; -CHOL200026 PO; -CLON0.1T PO; +CRAN200C PO; +CRAN3875 PO; -DOCU-141 PO; +DOCU250C14 PO; +ENOX40DI SQ; +IPRA3AMP23 IH; -LEVO100T9 PO; +LEVO50TA PO; +LORA10TA7 PO; -LUBI24CA5 PO; +MELA3TAB41 PO; -METH40VI32 IV; -MULT-447 PO; +NITR0.4T48 SL; -OMEG-88 PO; -POLY15DR40 EACHEYE; +POTA20PA3 PO; -POTA20TA83 PO
--- NOTE | 2021-06-03 13:42 | NUR ---
BIBRA 41 FROM [facility] HR C/O FEVER, SOB AND LOW O2 SATS 78% ON RA. TOLERTING O2 NRB @ 12LPM AT 95%. FEBRILE 101.3 SKIN WARM TO TOUCH. PT LETHARGIC AT THIS TIME. PEST TECHNICIAN LFA #18G S/L IVF NS 1000ML INFUSING.
--- NOTE | 2021-06-03 14:09 | NUR ---
F/C 16 FR INSERTED WITH URINE RETURN. PATENT AND INTACT.
--- NOTE | 2021-06-03 14:10 | NUR ---
URINE SPECIMEN COLLECTED AND SENT TO LAB.
[2021-06-03] MEDS ORDERED: IPRA4AER IH (14:15)
[2021-06-03] MEDS ORDERED: OMEG-88 PO (14:15)
[2021-06-03] MEDS ORDERED: LEVO50TA8 PO (14:15)
[2021-06-03] MEDS ORDERED: ACET-868 PO (14:15)
[2021-06-03] MEDS ORDERED: CRAN425C6 PO (14:15)
[2021-06-03] MEDS ORDERED: GUAI100S11 PO (14:15)
[2021-06-03] MEDS ORDERED: AMIN30LI2 PO (14:15)
[2021-06-03] MEDS ORDERED: MAGN400O6 PO (14:15)
[2021-06-03] MEDS ORDERED: DOCU100C36 PO (14:15)
[2021-06-03] MEDS ORDERED: IV NS 0.9% 500 ML IV ONE (15:00)
[2021-06-03] MEDS ORDERED: ACETAMINOPHEN 650 MG/SUPP.RECT RC ONE ×2 (15:00)
[2021-06-03] MEDS ORDERED: CEFEPIME 2 GM in IV D5W 100 ML IV SCH (15:00)
[2021-06-03 15:03] LABS: ABG BASE EXCESS 21.5 mmol/L; ABG OXYGEN SATURATION 97.6 % (92.0-98.5); ABG PCO2 181.8 mmHg (35.0-45.0); ABG PH 7.119 (7.350-7.450); ABG PO2 113.5 mmHg (75.0-100.0); COHb 0.7 % (0.5-1.5); MetHb 0.2 % (0.0-1.5); O2Hb 96.7 % (94.0-97.0); SITE, ABG Right Radial; VENT MODE, BG 12 LNRB
--- NOTE | 2021-06-03 15:11 | NUR ---
RT AT PT'S BEDSIDE
--- NOTE | 2021-06-03 15:13 | NUR ---
CURLING MACHINE OPERATOR AT PT'S BEDSIDE
[2021-06-03] MEDS ORDERED: ALBUTEROL FS 2.5 MG/3 ML VIAL.NEB CONTNEB ONE (15:30)
[2021-06-03] MEDS ORDERED: methylPREDNISolone SOD SUCC 125 MG/2ML VIAL IV ONE (15:30)
[2021-06-03] MEDS ORDERED: IPRATROPIUM NEB FS 0.5 MG/2.5 ML AMPUL.NEB NEB ONE ×2 (15:30→16:00)
--- NOTE | 2021-06-03 15:43 | NUR ---
RT pt placed on bipap post abg results. pt not tolerating well, but pt dnr/dni. md notified. bipap setting: st 19/10 50%. ambu bag at bedside.
--- NOTE | 2021-06-03 15:45 | NUR ---
COVID ANTIGEN AND PCR COLLECTED AND SENT TO LAB. PT ON BIPAP TOLERATING AT 85 - 89%. MANA GALAVIZ AWARE. PT'S POLST IS DNR/DNI. P BIPAP SETTINGS: IPAP 20 EPAP 5 RR 18 FIO2 50%
[2021-06-03] MEDS ORDERED: IPRATROPIUM NEB FS 0.5 MG/2.5 ML AMPUL.NEB ONE (15:50)
[2021-06-03] MEDS ORDERED: ALBUTEROL FS 2.5 MG/3 ML VIAL.NEB ONE (15:50)
[2021-06-03] MEDS ORDERED: methylPREDNISolone SOD SUCC 125 MG/2ML VIAL ONE (15:59)
[2021-06-03] MEDS ORDERED: DOXYCYCLINE 100 MG in IV D5W 100 ML IV ONE (16:00)
[2021-06-03] MEDS ORDERED: ALBUTEROL FS 2.5 MG/0.5 ML VIAL.NEB NEB ONE (16:00)
[2021-06-03] MEDS ORDERED: ALBUTEROL FS 2.5 MG/3 ML VIAL.NEB NEB ONE (16:00)
--- NOTE | 2021-06-03 16:00 | NUR ---
DOUBLE ORDER FOR ATROVENT AND ALBUTEROL, SEE EMAR
[2021-06-03 16:01] LABS: BILIRUBIN,URINE NEGATIVE (NEGATIVE); COLOR,URINE YELLOW (YELLOW); LEUKOCYTE ESTERASE ,URINE NEGATIVE (NEGATIVE); NITRITE, URINE NEGATIVE (NEGATIVE); PROTEIN,URINE 30 mg/dl (NEGATIVE); UGLUCOSE NEGATIVE (NEGATIVE)
[2021-06-03 16:16] LABS: WBC,URINE 0-2 /HPF (0-3)
[2021-06-03 16:17] LABS: BACTERIA,URINE RARE /HPF (None Seen); MUCUS,URINE Few /LPF (None Seen); SQUAMOUS EPITHELIAL CELL,UR 0-2 /HPF (None Seen)
--- NOTE | 2021-06-03 16:41 | NUR ---
BLOOD COLLECTED AND SENT TO LAB
[2021-06-03 17:03] LABS: BASOPHILS % (AUTO) 0.2 % (0.0-2.0); EOSINOPHILS % (AUTO) 0.3 % (0.0-6.0); HEMATOCRIT 39 % (33-45); HEMOGLOBIN 11.6 g/dL (11.5-14.8); LYMPHOCYTES # (AUTO) 0.9 K/uL (0.8-4.8); MEAN CORPUSCULAR HGB CONC 30 g/dl (31.0-36.0); MEAN CORPUSCULAR VOLUME 87 fL (82-100); MONOCYTES # (AUTO) 0.7 K/uL (0.1-1.30); MONOCYTES % (AUTO) 5.7 % (2.0-12.0); NEUTROPHILS # (AUTO) 11.4 K/uL (1.8-8.9); NEUTROPHILS % (AUTO) 86.8 % (43.0-81.0); RED BLOOD CELL COUNT(AUTO) 4.53 MIL/uL (4.0-5.2); WHITE BLOOD COUNT (AUTO) 13.1 K/uL (4.3-11.0)
--- NOTE | 2021-06-03 17:25 | NUR ---
[facility] CALLED NET APPLICATIONS DEVELOPER PAGED.
[2021-06-03 17:49] LABS: ALANINE AMINOTRANSFERASE 51 U/L (12-78); ALBUMIN 2.8 g/dL (3.4-5.0); ALKALINE PHOSPHATASE 142 U/L (46-116); ASPARTATE AMINOTRANSFERASE 36 U/L (15-37); BILIRUBIN,DIRECT 0.2 mg/dL (0.0-0.2); BILIRUBIN,TOTAL 0.4 mg/dL (0.2-1.0); CALCIUM, SERUM 8.3 mg/dL (8.5-10.1); CHLORIDE 96 mmol/L (98-107); CREATININE 0.4 mg/dL (0.6-1.3); GLUCOSE 105 mg/dL (74-106); POTASSIUM 5.3 mmol/L (3.5-5.1); SODIUM SERUM 142 mmol/L (136-145); TOTAL PROTEIN, SERUM 8.5 g/dL (6.4-8.2); UREA NITROGEN, BLOOD 24 mg/dL (7-18)
[2021-06-03 17:55] LABS: CARBON DIOXIDE 45 mmol/L (21-32)
[2021-06-03 17:56] LABS: PLATELET COUNT (AUTO) 253 K/uL (150-450)
[2021-06-03 17:58] LABS: LYMPHOCYTES % (MANUAL) 14 % (16-48); MONOCYTES % (MANUAL) 5 % (0-11.0); NEUTROPHILS % (MANUAL) 81 (42-76)
[2021-06-03] MEDS ORDERED: ACETAMINOPHEN 650 MG/SUPP.RECT RC PRN (18:30)
[2021-06-03] MEDS ORDERED: ONDANSETRON HCL/PF 4 MG/2 ML VIAL IVP PRN (18:30)
[2021-06-03] MEDS ORDERED: Z GUARD REMEDY 4 OZ OINT TP PRN (18:30)
[2021-06-03] MEDS ORDERED: IPRATROPIUM NEB FS 0.5 MG/2.5 ML AMPUL.NEB NEB PRN (19:00)
[2021-06-03] MEDS ORDERED: ALBUTEROL FS 2.5 MG/3 ML VIAL.NEB NEB PRN (19:00)
--- NOTE | 2021-06-03 19:51 | NUR ---
CALLED FOR BED
--- NOTE | 2021-06-03 21:17 | NUR ---
ASSIGNED TO 107
--- NOTE | 2021-06-03 22:22 | NUR ---
REPOT GIVEN TO DOMINGO CARLISLE FOR LOLY
--- NOTE | 2021-06-03 22:45 | NUR ---
PT TRANSFERRED TO [facility] VIA ACLS PROTOCOL WITH RT. VSS
--- NOTE | 2021-06-03 23:00 | NUR ---
VENUE COORDINATOR NOTE ADMITTED 71 YEARS OLD FEMALE FROM ER WITH THE DX OF ACUTE HYPOXIC RESP FAILURE, PNA POA. ON CONTINUES BIPAP TOLERATING THE SETTINGS WELL. A/O X 1 NO DISTRESS OR DISCOMFORT NOTED. DENIES PAIN. ON TELE SR HR 89. PT IS NPO WHILE ON BIPAP PER MD ORDERS. SKIN ASSESSMENT DONE. PICTURES TAKEN AND PLACE THEM IN THE CHART. KEPT HER DRY AND CLEAN. F/C INTACT AND PATENT DRAINING YELLOWISH COLOR URINE. SIDE RAILS UP X 3 AND CALL LIGHT WITHIN REACH. CONTINUE TO MONITOR HER.
[2021-06-04] VITALS: BP 128/68
[2021-06-04] MEDS ORDERED: AZITHROMYCIN 500 MG VIAL ONE (00:01)
[2021-06-04] MEDS ORDERED: CEFEPIME 1 GM VIAL ONE (00:01)
[2021-06-04] MEDS: CEFEPIME 2 GM in IV D5W 100 ML IV SCH ×5 (00:53→21:24)
[2021-06-04] MEDS: ENOXAPARIN SODIUM 40 MG/0.4 ML DISP.SYRIN SQ SCH ×2 (00:55→21:27)
[2021-06-04] MEDS: AZITHROMYCIN 500 MG in IV D5W 250 ML IV SCH ×2 (01:30→22:25)
[2021-06-04 04:00] VITALS: BP 127/72
--- NOTE | 2021-06-04 04:53 | NUR ---
[facility] RN NOTE ASKED NURSING PLATFORM ATTENDANT MAXIPIME 2 G SCHDULE DOSE NEEDED , ACCORDING TO [facility] NURSING PLATFORM ATTENDANT MED IS NOT AVAILABLE AT THIS TIME. WAIT TILL AM PHARMACY TO COME.
[2021-06-04 06:05] LABS: ABG BASE EXCESS 22.1 mmol/L; ABG OXYGEN SATURATION 93.3 % (92.0-98.5); ABG PCO2 82.6 mmHg (35.0-45.0); ABG PH 7.405 (7.350-7.450); ABG PO2 62.2 mmHg (75.0-100.0); COHb 0.9 % (0.5-1.5); O2Hb 92.5 % (94.0-97.0); SITE, ABG Right Radial
--- NOTE | 2021-06-04 06:38 | NUR ---
AUTO REPAIR SHOP MANAGER NOTE PT REMAIN ON BIPAP NO DISTRESS OR DISCOMFORT NOTED. NO S/S OF PAIN NOTED. ALL NEEDS ATTENDED. WILL ENDORSE TO DAY SHIFT NURSE FOR CONTINUE TO CARE.
--- NOTE | 2021-06-04 07:00 | NUR ---
JUSTINE RN NOTE TALKED WITH PHARMACY REGARDING NEEDED MAXIPIME 2 GM WHICH WAS NOTAVAILABLE PER NURSING BUSHLER. PER PHARMACY WIILL BRING THE MED TO THE UNIT. DAY SHIFT NURSE INFORMED TO INFUSE THE MED WHEN AVAILABLE.
[2021-06-04 07:05] LABS: BASOPHILS % (AUTO) 0.2 % (0.0-2.0); HEMATOCRIT 31 % (33-45); HEMOGLOBIN 9.5 g/dL (11.5-14.8); LYMPHOCYTES # (AUTO) 0.6 K/uL (0.8-4.8); MEAN CORPUSCULAR HGB CONC 31 g/dl (31.0-36.0); MEAN CORPUSCULAR VOLUME 84 fL (82-100); MONOCYTES # (AUTO) 0.4 K/uL (0.1-1.30); MONOCYTES % (AUTO) 4.4 % (2.0-12.0); NEUTROPHILS # (AUTO) 8.8 K/uL (1.8-8.9); NEUTROPHILS % (AUTO) 89.4 % (43.0-81.0); PLATELET COUNT (AUTO) 240 K/uL (150-450); RED BLOOD CELL COUNT(AUTO) 3.72 MIL/uL (4.0-5.2); WHITE BLOOD COUNT (AUTO) 9.8 K/uL (4.3-11.0)
[2021-06-04 07:11] LABS: ALBUMIN 2.3 g/dL (3.4-5.0); BILIRUBIN,TOTAL 0.2 mg/dL (0.2-1.0); CALCIUM, SERUM 8.4 mg/dL (8.5-10.1); CREATININE 0.4 mg/dL (0.6-1.3); MAGNESIUM 2.1 mg/dL (1.8-2.4); PHOSPHORUS 2.5 mg/dL (2.5-4.9); POTASSIUM 4.7 mmol/L (3.5-5.1)
--- NOTE | 2021-06-04 07:18 | NUR ---
JUSTINE RN NOTE INFORMED DAY SHIFT NURSE TO FOLLOW UP ON CO2 45 RESULT.
[2021-06-04 08:00] VITALS: BP 140/80
--- NOTE | 2021-06-04 08:05 | NUR ---
RN OPENING NOTES RECEIVED PATIENT IN BED AWAKE, ALERT/ ORIENTED X 1. BREATHING IS EVEN AND UNLABORED. NO DISTRESS OR SHORTNESS OF BREATH NOTED. ON TELE MONITOR SHOWING SR HR AT 91. IV ACCESS ON LEFT FOREARM #18, INTACT AND PATENT, NO S/SX OF INFILTRATION NOTED. FALL AND SAFETY MEASURES IN PLACE, BED ALARM ON, BED IN LOW AND LOCKED POSITION, CALL LIGHT WITHIN REACH OF PATIENT. SIDE RAILS UP X2. WILL CONTINUE TO MONITOR PATIENT ACCORDINGLY.
--- NOTE | 2021-06-04 09:04 | NUR ---
RN NOTE MAXIPIME MED BROUGHT TO THE UNIT. MED ORIGINAL DUE TIME IS 0500, PER NIGHT NURSE PHARMACY SAID IT IS OK TO GIVE. WILL GIVE NOW
[2021-06-04] MEDS: DEXAMETHASONE SOD PHOSPHATE 10 MG/ML VIAL IV SCH (09:06)
[2021-06-04] MEDS: PANTOPRAZOLE 40 MG VIAL IV SCH (09:06)
[2021-06-04 10:21] LABS: ABG BASE EXCESS 21.7 mmol/L; ABG OXYGEN SATURATION 89.4 % (92.0-98.5); ABG PCO2 69.7 mmHg (35.0-45.0); ABG PH 7.463 (7.350-7.450); ABG PO2 49.4 mmHg (75.0-100.0); AaDO2 126.4 mmHg; COHb 0.5 % (0.5-1.5); MetHb 0.3 % (0.0-1.5); O2Hb 88.7 % (94.0-97.0); SITE, ABG Right Radial; VENT MODE, BG nasal caanula
[2021-06-04 12:00] VITALS: BP 124/86
[2021-06-04 16:00] VITALS: BP 147/82
--- NOTE | 2021-06-04 18:44 | NUR ---
RN CLOSING NOTES PATIENT IN BED SLEEPING, EASILY AROUSABLE. PATIENT REMAINS IN STABLE CONDITION THROUGHOUT SHIFT. NO SIGNIFICANT CHANGES THROUGHOUT SHIFT. BREATHING EVEN AND UNLABORED. NO DISTRESS OR SHORTNESS OF BREATH NOTED, ON TELE MONITOR SHOWING ST HR AT 100'S. IV ACCESS ON LEFT FOREARM #18G, INTACT AND PATENT. NO S/SX OF INFILTRATION NOTED. ALL DUE MEDS GIVEN ORDERED, TOLERATED WELL. KEPT PATIENT DRY, CLEAN AND COMFORTABLE. ALL APPLICABLE ISOLATION PRECAUTIONS MAINTAINED. SAFETY MEASURES IN PLACE, BED ALARM ON, BED IN LOW AND LOCKED POSITION, CALL LIGHT WITHIN REACH OF PATIENT. SIDE RAILS UP X2. ALL NEEDS ATTENDED AND MET. WILL ENDORSE TO ONCOMING SHIFT FOR CONTINUITY OF CARE.
--- NOTE | 2021-06-04 19:38 | NUR ---
RN NOTE RECEIVED PATIENT IN BED, SLEEPING, EASILY AROUSABLE TO NAME AND TOUCH. AOX1. BREATHING EVEN AND UNLABORED. ON OXYGEN VIA NASAL CANNULA AT 5L/MIN TOLERATING WELL WITH OXYGEN SATURATION OF 98 PERCENT. WHEN PATIENT REMOVES IT, IT DROPS IT 90'S. HOB ELEVATED 30 DEGREES. SKIN WARM AND DRY. NOTED WITH LEFT FOREARM 18G, PATENT. NO INFILTRATION NOTED AT THIS TIME. NO IVF AT THIS TIME. NOTED WITH TENORIO CATHETER DRAINING YELLOW URINE. NO BLEEDING NOTED. ON TELE MONITORING, SINUS TACHYCARDIA AT THIS TIME. DENIES CHEST PAIN. BED LOW, IN LOCKED POSITION. CALL LIGHT WITHIN REACH.
[2021-06-04 20:00] VITALS: BP 135/70
--- NOTE | 2021-06-04 20:46 | NUR ---
RN NOTE PATIENT PUT ON BiPAP at this time. Patient noted to be saturating 89 percent on nasal cannula at 5L/MIN. Bipap setting of IPAP: 20, EPAP: 20, RATE: 12, FIO2, 40%. TOLERATING WELL. OXYGEN SATURATION AT THIS TIME IS 96 PERCENT. HOB ELEVATED 35 DEGREES. WILL CONTINUE TO MONITOR. CALL LIGHT WITHIN REACH.
[2021-06-05] VITALS: BP 139/67
[2021-06-05 04:00] VITALS: BP 125/67
[2021-06-05] MEDS: CEFEPIME 2 GM in IV D5W 100 ML IV SCH ×3 (04:29→20:39)
[2021-06-05 06:52] LABS: BASOPHILS % (AUTO) 0.6 % (0.0-2.0); EOSINOPHILS % (AUTO) 0.3 % (0.0-6.0); HEMATOCRIT 29 % (33-45); HEMOGLOBIN 9.1 g/dL (11.5-14.8); LYMPHOCYTES # (AUTO) 1.6 K/uL (0.8-4.8); LYMPHOCYTES % (AUTO) 19.1 % (20.0-44.0); MEAN CORPUSCULAR HGB CONC 32 g/dl (31.0-36.0); MEAN CORPUSCULAR VOLUME 82 fL (82-100); MONOCYTES # (AUTO) 0.9 K/uL (0.1-1.30); MONOCYTES % (AUTO) 10.7 % (2.0-12.0); NEUTROPHILS # (AUTO) 5.9 K/uL (1.8-8.9); NEUTROPHILS % (AUTO) 69.3 % (43.0-81.0); PLATELET COUNT (AUTO) 259 K/uL (150-450); RED BLOOD CELL COUNT(AUTO) 3.49 MIL/uL (4.0-5.2); WHITE BLOOD COUNT (AUTO) 8.5 K/uL (4.3-11.0)
--- NOTE | 2021-06-05 07:35 | NUR ---
RN OPENING NOTES RECEIVED PATIENT IN BED AWAKE, ALERT/ ORIENTED X 1. BIPAP REMOVED BY RT, PATIENT ON O2 5 LPM VIA NC, TOLERATING WELL. BREATHING IS EVEN AND UNLABORED. NO DISTRESS OR SHORTNESS OF BREATH NOTED. IV ACCESS ON LEFT FOREARM #18, INTACT AND PATENT, NO S/SX OF INFILTRATION NOTED. FALL AND SAFETY MEASURES IN PLACE, BED ALARM ON, BED IN LOW AND LOCKED POSITION, CALL LIGHT WITHIN REACH OF PATIENT. SIDE RAILS UP X2. WILL CONTINUE TO MONITOR PATIENT ACCORDINGLY.
[2021-06-05 08:00] VITALS: BP 117/57
[2021-06-05 08:59] LABS: CALCIUM, SERUM 8.4 mg/dL (8.5-10.1); CREATININE 0.4 mg/dL (0.6-1.3); POTASSIUM 4.2 mmol/L (3.5-5.1)
[2021-06-05] MEDS: DEXAMETHASONE SOD PHOSPHATE 10 MG/ML VIAL IV SCH (09:24)
[2021-06-05] MEDS: PANTOPRAZOLE 40 MG VIAL IV SCH (09:24)
[2021-06-05 12:00] VITALS: BP 143/76
[2021-06-05 16:00] VITALS: BP 119/53
--- NOTE | 2021-06-05 16:28 | NUR ---
PER [facility] COVID NEGATIVE.
--- NOTE | 2021-06-05 18:41 | NUR ---
RN CLOSING NOTES PATIENT IN BED SLEEPING, EASILY AROUSABLE. PATIENT REMAINS IN STABLE CONDITION THROUGHOUT SHIFT. BREATHING EVEN AND UNLABORED. NO DISTRESS OR SHORTNESS OF BREATH NOTED, IV ACCESS ON LEFT HAND #24G, INTACT AND PATENT. NO S/SX OF INFILTRATION NOTED. ALL DUE MEDS GIVEN ORDERED, TOLERATED WELL. KEPT PATIENT DRY, CLEAN AND COMFORTABLE. ALL APPLICABLE ISOLATION PRECAUTIONS MAINTAINED. SAFETY MEASURES IN PLACE, BED ALARM ON, BED IN LOW AND LOCKED POSITION, CALL LIGHT WITHIN REACH OF PATIENT. SIDE RAILS UP X2. ALL NEEDS ATTENDED AND MET. WILL ENDORSE TO ONCOMING SHIFT FOR CONTINUITY OF CARE.
--- NOTE | 2021-06-05 19:45 | NUR ---
1944 Received patient in bed awake and watching TV. In no apparent distress. O2 saturation at 96% on 5L NC. HOB elevated for maximum oxygenation. Peripheral IV G24 on left thumb intact and noted patent when flushed. No signs of infiltration noted. Kept comfortable. Call light placed within reach and instructed to call for assistance.
[2021-06-05 20:00] VITALS: BP 122/55
[2021-06-05] MEDS: ENOXAPARIN SODIUM 40 MG/0.4 ML DISP.SYRIN SQ SCH (20:41)
[2021-06-05] MEDS: AZITHROMYCIN 500 MG in IV D5W 250 ML IV SCH (22:02)
--- NOTE | 2021-06-05 23:25 | NUR ---
2325 Placed on Bipap by RT as ordered. O2 saturation at 97%. Patient verbally responsive and not in distress. Repositioned for comfort. All needs anticipated. Left thumb IV remains intact, reminded patient not to move thumb as much to keep IV in place. No signs of infiltration noted. Call light placed within reach.
[2021-06-06] VITALS: BP 112/59
--- NOTE | 2021-06-06 01:00 | NUR ---
0100 Complete bed bath provided. Linens changed. BM x 1 small and soft in consistency. Good pericare provided. Left hand IV site intact. Remains on BIPAP as ordered. O2 saturation 97%. Turned and repositioned. Bilateral feet elevated with pillows. HOB elevated. Call light within reach.
[2021-06-06 04:00] VITALS: BP 121/57
--- NOTE | 2021-06-06 04:00 | NUR ---
0400 New peripheral IV access inserted on , good blood return noted.
[2021-06-06] MEDS: CEFEPIME 2 GM in IV D5W 100 ML IV SCH ×3 (04:43→21:18)
--- NOTE | 2021-06-06 06:30 | NUR ---
0630 Remains on BIPAP satting 96%. Sleeping at this time. Cont to deny pain when asked. No acute changes. Kept comfortable. All needs anticipated. Call light within reach.
[2021-06-06 06:56] LABS: BASOPHILS # (AUTO) 0.1 K/uL (0.0-0.2); BASOPHILS % (AUTO) 0.9 % (0.0-2.0); EOSINOPHILS % (AUTO) 0.6 % (0.0-6.0); HEMATOCRIT 29 % (33-45); HEMOGLOBIN 9.2 g/dL (11.5-14.8); LYMPHOCYTES # (AUTO) 1.5 K/uL (0.8-4.8); LYMPHOCYTES % (AUTO) 20.2 % (20.0-44.0); MEAN CORPUSCULAR HGB CONC 32 g/dl (31.0-36.0); MEAN CORPUSCULAR VOLUME 82 fL (82-100); MONOCYTES % (AUTO) 13.4 % (2.0-12.0); NEUTROPHILS # (AUTO) 4.7 K/uL (1.8-8.9); NEUTROPHILS % (AUTO) 64.9 % (43.0-81.0); PLATELET COUNT (AUTO) 231 K/uL (150-450); RED BLOOD CELL COUNT(AUTO) 3.54 MIL/uL (4.0-5.2); WHITE BLOOD COUNT (AUTO) 7.2 K/uL (4.3-11.0)
[2021-06-06 07:41] LABS: CALCIUM, SERUM 8.5 mg/dL (8.5-10.1); CREATININE 0.4 mg/dL (0.6-1.3); MAGNESIUM 2.5 mg/dL (1.8-2.4); PHOSPHORUS 3.5 mg/dL (2.5-4.9); POTASSIUM 3.6 mmol/L (3.5-5.1)
--- NOTE | 2021-06-06 07:46 | NUR ---
RN OPENING NOTES RECEIVED PATIENT IN BED SLEEPING COMFORTABLY. PATIENT ON BIPAP, TOLERATING WELL SAT OF 98%.BREATHING IS EVEN AND UNLABORED. NO DISTRESS OR SHORTNESS OF BREATH NOTED. IV ACCESS ON LEFT FOREARM #24 AND LEFT THUMB #24, INTACT AND PATENT, NO S/SX OF INFILTRATION NOTED. ALL APPLICABLE ISOLATION PRECAUTIONS IN PLACE. ALL SAFETY MEASURES IN PLACE, BED ALARM ON, BED IN LOW AND LOCKED POSITION, CALL LIGHT WITHIN REACH OF PATIENT. SIDE RAILS UP X2. WILL CONTINUE TO MONITOR PATIENT ACCORDINGLY.
[2021-06-06 08:00] VITALS: BP 108/65
[2021-06-06] MEDS: DEXAMETHASONE SOD PHOSPHATE 10 MG/ML VIAL IV SCH (08:50)
[2021-06-06] MEDS: PANTOPRAZOLE 40 MG VIAL IV SCH (08:50)
--- NOTE | 2021-06-06 09:20 | NUR ---
RN NOTE TRANSFERRED PATIENT TO ROOM 328-1. PATIENT IN STABLE CONDITION ON O2 5LPM VIA NC. BREATHING EVEN AND UNLABORED. NO SOB OR ANY ACUTE DISTRESS NOTED. AM MEDS GIVEN AND TOLERATED WELL. REPORT GIVEN TO [place] [address].
--- NOTE | 2021-06-06 09:20 | NUR ---
SHEET METAL WORK FURNACE INSTALLER NOTES RECEIVED PATIENT FROM JUSTINE, AWAKE AND A/O X2. ON O2 AT 5LPM VIA NASAL CANNULA SATURATING AT 96%. NO DISTRESS OR SHORTNESS OF BREATH NOTED. WITH NO COMPLAINTS OF PAIN OR DISCOMFORT AT THIS TIME. WITH IV ACCESS ON LEFT FOREARM #24 AND LEFT THUMB #24, INTACT AND PATENT, NO S/SX OF INFILTRATION NOTED. SAFETY MEASURES IN PLACE, BED ALARM ON, BED ON LOWEST LOCKED POSITION, CALL LIGHT WITHIN REACH OF PATIENT. SIDE RAILS UP X2. WILL CONTINUE TO MONITOR.
[2021-06-06 10:18] LABS: ABG BASE EXCESS 16.4 mmol/L; ABG OXYGEN SATURATION 95.8 % (92.0-98.5); ABG PCO2 68.4 mmHg (35.0-45.0); ABG PO2 82.1 mmHg (75.0-100.0); AaDO2 124.4 mmHg; COHb 0.3 % (0.5-1.5); O2Hb 95.5 % (94.0-97.0); SITE, ABG Left Brachial; VENT MODE, BG 5 NC
--- NOTE | 2021-06-06 10:41 | NUR ---
RT NOTE Patient currently on 5LPM nasal cannula. HR 70 SPO2 97%.
[2021-06-06 12:00] VITALS: BP 133/54
--- NOTE | 2021-06-06 15:45 | NUR ---
RN NOTE NURSING BEDSIDE SWALLOW EVAL DONE PER DOCTOR NURYS'S ORDER. PATIENT DID VERY WELL. REPORTED TO DOCTOR NURYS AND ORDERED TO START PATIENT ON PUREED DIET.
[2021-06-06 16:00] VITALS: BP_SYST 135; BP_SYST 137; BP_DIAS 57
--- NOTE | 2021-06-06 18:29 | NUR ---
PATIENT ACCOUNT ANALYST CLOSING NOTES PATIENT RESTING ON BED AND A/O X2. ON O2 AT 5LPM VIA NASAL CANNULA TOLERATING WELL AND SATURATING AT 96%. BREATHING IS EVEN AND UNLABORED. NO DISTRESS OR SHORTNESS OF BREATH NOTED. WITH IV ACCESS ON LEFT FOREARM #24 AND LEFT THUMB #24, INTACT AND PATENT, NO S/SX OF INFILTRATION NOTED. ON TELE MONITOR CURRENTLY READING SINUS RHYTHM AT 90BPM. SAFETY MEASURES IN PLACE, BED ALARM ON, BED IN LOWEST LOCKED POSITION, CALL LIGHT WITHIN REACH OF PATIENT. SIDE RAILS UP X2. WILL ENDORSE TO NEXT SHIFT FOR LOLY.
[2021-06-06 20:00] VITALS: BP 100/56
[2021-06-06] MEDS: ENOXAPARIN SODIUM 40 MG/0.4 ML DISP.SYRIN SQ SCH (21:20)
[2021-06-06] MEDS: AZITHROMYCIN 500 MG in IV D5W 250 ML IV SCH (22:42)
[2021-06-07 04:00] VITALS: BP 120/60
[2021-06-07] MEDS: CEFEPIME 2 GM in IV D5W 100 ML IV SCH ×3 (04:58→21:03)
--- NOTE | 2021-06-07 05:23 | NUR ---
CLOSING NOTES: ALERT AND ORIENTATED X2 COFUSED AT TIMES FRIENDLY AND COOPERATIVE INCONTINENT STOOL LARGE AMOUNT TENORIO DRAINAGE CLEAR YELLOW MAX ASSIST NEED TO BE TURNED AND REPOSITIONED
[2021-06-07 08:00] VITALS: BP 120/60
--- NOTE | 2021-06-07 08:06 | NUR ---
RN OPENING NOTES PATIENT AWAKE IN BED RESTING, AWAKE. A/O X2-3. NO S/S OF PAIN NOTED AT THIS TIME,ON 5L OXYGEN, NO DISTRESS OR SHORTNESS OF BREATH NOTED. IV R HAND #20G, INTACT AND PATENT. FALL AND SAFETY MEASURES IN PLACE, BED IN LOW AND LOCK POSITION, CALL LIGHT AND TABLE WITHIN EASY REACH, SIDE RAILS UP X2. WILL CONTINUE TO MONITOR.
[2021-06-07] MEDS: PANTOPRAZOLE 40 MG VIAL IV SCH (09:19)
[2021-06-07] MEDS: DEXAMETHASONE SOD PHOSPHATE 10 MG/ML VIAL IV SCH (09:19)
[2021-06-07 09:25] LABS: CALCIUM, SERUM 8.4 mg/dL (8.5-10.1); CREATININE 0.4 mg/dL (0.6-1.3); MAGNESIUM 2.2 mg/dL (1.8-2.4); PHOSPHORUS 3.9 mg/dL (2.5-4.9); POTASSIUM 3.6 mmol/L (3.5-5.1)
[2021-06-07 09:44] LABS: BASOPHILS % (AUTO) 0.5 % (0.0-2.0); EOSINOPHILS % (AUTO) 1.3 % (0.0-6.0); HEMATOCRIT 31 % (33-45); HEMOGLOBIN 9.8 g/dL (11.5-14.8); LYMPHOCYTES # (AUTO) 1.6 K/uL (0.8-4.8); LYMPHOCYTES % (AUTO) 19.8 % (20.0-44.0); MEAN CORPUSCULAR HGB CONC 31 g/dl (31.0-36.0); MEAN CORPUSCULAR VOLUME 82 fL (82-100); MONOCYTES # (AUTO) 0.9 K/uL (0.1-1.30); MONOCYTES % (AUTO) 10.9 % (2.0-12.0); NEUTROPHILS # (AUTO) 5.6 K/uL (1.8-8.9); NEUTROPHILS % (AUTO) 67.5 % (43.0-81.0); PLATELET COUNT (AUTO) 268 K/uL (150-450); RED BLOOD CELL COUNT(AUTO) 3.85 MIL/uL (4.0-5.2); WHITE BLOOD COUNT (AUTO) 8.3 K/uL (4.3-11.0)
[2021-06-07 12:00] VITALS: BP 120/60
[2021-06-07 16:00] VITALS: BP 120/78
--- NOTE | 2021-06-07 19:35 | NUR ---
RN NOTES RECEIVED PATIENT AWAKE ON HER BED, A/OX2,OBESE, SR ON TELE MONITOR HR-76, DENIES PAIN, NO SOB, CALL LIGHT WITHIN REACH, [id number], WILL CONTINUE TO MONITOR
--- NOTE | 2021-06-07 19:47 | NUR ---
RN CLOSING NOTES PATIENT AWAKE IN BED RESTING, AWAKE. A/O X2-3. NO S/S OF PAIN NOTED AT THIS TIME,ON 5L OXYGEN, NO DISTRESS OR SHORTNESS OF BREATH NOTED. IV R HAND #20G, INTACT AND PATENT. PATIENT WITH EXTERNAL WHEELABRATOR OPERATOR WITH CURRENT READING OF SR AND HR 87. FALL AND SAFETY MEASURES IN PLACE, BED IN LOW AND LOCK POSITION, CALL LIGHT AND TABLE WITHIN EASY REACH, SIDE RAILS UP X2. WILL ENDORSE TO MANAGER RETAIL.
[2021-06-07 20:00] VITALS: BP 117/62
[2021-06-07] MEDS: ENOXAPARIN SODIUM 40 MG/0.4 ML DISP.SYRIN SQ SCH (21:04)
[2021-06-07] MEDS: AZITHROMYCIN 500 MG in IV D5W 250 ML IV SCH (22:43)
[2021-06-08] VITALS (7 sets, daily range): BP systolic 107–140; BP diastolic 46–85
--- NOTE | 2021-06-08 02:00 | NUR ---
RN NOTES IV GOT INFILTRATED, NEW IV INSERTED ON THE LEFT WRIST GAUGE 22
[2021-06-08] MEDS: CEFEPIME 2 GM in IV D5W 100 ML IV SCH ×3 (04:06→21:10)
--- NOTE | 2021-06-08 06:12 | NUR ---
RN NOTES SLEEPING BUT AROUSABLE, NOT IN DISTRESS, NO PAIN NOTED, CALL LIGHT WITHIN REACH, [id number], PT. NEEDS ATTENDED
--- NOTE | 2021-06-08 07:20 | NUR ---
RN OPENING NOTES PATIENT AWAKE IN BED RESTING, AWAKE. A/O X2, CONFUSED. NO COMPLAINT OF PAIN VERBALIZED AT THIS TIME. O2 SAT @ 98% ON 5L VIA NC WITH NO S/S OF RESPIRATORY DISTRESS. TELE MONITOR SHOWS SR 70 BPM AT THIS TIME. L WRIST G#20 INTACT AND PATENT. TENORIO CATHETER IN PLACE WITH YELLOW URINE DRAINING. SAFETY MEASURES IN PLACE, BED IN LOW AND LOCK POSITION, CALL LIGHT AND TABLE WITHIN EASY REACH, SIDE RAILS UP X2. WILL CONTINUE TO MONITOR.
[2021-06-08 07:25] LABS: BASOPHILS % (AUTO) 0.4 % (0.0-2.0); EOSINOPHILS % (AUTO) 1.2 % (0.0-6.0); HEMATOCRIT 31 % (33-45); HEMOGLOBIN 9.6 g/dL (11.5-14.8); LYMPHOCYTES # (AUTO) 1.6 K/uL (0.8-4.8); LYMPHOCYTES % (AUTO) 22.4 % (20.0-44.0); MEAN CORPUSCULAR HGB CONC 31 g/dl (31.0-36.0); MEAN CORPUSCULAR VOLUME 81 fL (82-100); MONOCYTES # (AUTO) 0.8 K/uL (0.1-1.30); MONOCYTES % (AUTO) 10.9 % (2.0-12.0); NEUTROPHILS # (AUTO) 4.8 K/uL (1.8-8.9); NEUTROPHILS % (AUTO) 65.1 % (43.0-81.0); PLATELET COUNT (AUTO) 269 K/uL (150-450); RED BLOOD CELL COUNT(AUTO) 3.79 MIL/uL (4.0-5.2); WHITE BLOOD COUNT (AUTO) 7.4 K/uL (4.3-11.0)
[2021-06-08] MEDS: PANTOPRAZOLE 40 MG/PACK PACK PO SCH (10:10)
[2021-06-08] MEDS: DEXAMETHASONE SOD PHOSPHATE 10 MG/ML VIAL IV SCH (10:12)
[2021-06-08 11:22] LABS: CALCIUM, SERUM 8.1 mg/dL (8.5-10.1); CREATININE 0.4 mg/dL (0.6-1.3); MAGNESIUM 2.2 mg/dL (1.8-2.4); PHOSPHORUS 3.5 mg/dL (2.5-4.9); POTASSIUM 3.9 mmol/L (3.5-5.1)
[2021-06-08] MEDS: FUROSEMIDE 40 MG/4 ML VIAL IV SCH ×2 (19:00→20:40)
--- NOTE | 2021-06-08 19:07 | NUR ---
RN CLOSING NOTES PATIENT IN BED, AWAKE. A/O X3, SOMETIMES CONFUSED. NO COMPLAINT OF PAIN VERBALIZED AT THIS TIME. O2 SAT @ 95% 3L VIA NC WITH NO S/S OF RESPIRATORY DISTRESS. TELE MONITOR SHOWS SR 82 BPM AT THIS TIME. L WRIST G#20 INTACT AND PATENT. TENORIO CATHETER IN PLACE WITH YELLOW URINE DRAINING. SAFETY MEASURES IN PLACE, BED IN LOW AND LOCK POSITION, CALL LIGHT AND TABLE WITHIN EASY REACH, SIDE RAILS UP X2. WILL ENDORSE TO MANAGER TELEMARKETING NURSE FOR LOLY
--- NOTE | 2021-06-08 19:40 | NUR ---
MILK RECEIVER NOTE RECEIVED PATIENT IN BED. A/OX2. NO S/S OF APPARENT DISTRESS ON 3LPM OF O2 VIA NC. DENIES PAIN. TELE MONITOR READING SR 83BPM. TENORIO CATHETER DRAINING CLEAR, YELLOW URINE. L. WRIST IV ACCESS INTACT AND PATENT-- NO FLUIDS RUNNING AT THIS TIME. PATIENT NOTED TO BE VERY EDEMATOUS-- NON-PITTING. C-PAP NOTED AT BEDSIDE. SAFETY IN PLACE. NEEDS ATTENDED AT THIS TIME. WILL CONTINUE TO MONITOR.
--- NOTE | 2021-06-08 20:40 | NUR ---
DINING MANAGER NOTE SCHEDULED 1900 LASIX GIVEN LATE AT THIS TIME. MADE PHARMACY AWARE AND PER PHARMACY JUST MAKE A NOTE.
[2021-06-08] MEDS: ENOXAPARIN SODIUM 40 MG/0.4 ML DISP.SYRIN SQ SCH (21:12)
--- NOTE | 2021-06-08 23:05 | NUR ---
SCALLOP RAKER NOTE CPAP PUT ON BY YAIR, RESPIRATORY AT THIS TIME.
[2021-06-09] VITALS: BP 114/62
--- NOTE | 2021-06-09 02:23 | NUR ---
PHARMACY SERVICE ASSOCIATE NOTE REPORT GIVEN TO SUKUMAR FOR CONTINUITY OF CARE.
--- NOTE | 2021-06-09 02:53 | NUR ---
RETAIL AIDE NOTE: RECEIVED REPORT. ASSESSED PATIENT. BiPAP IN PLACE. PATIENT TOLERATING WITHOUT COMPLICATION. NAD AND VSS AT THIS TIME.
[2021-06-09 04:00] VITALS: BP 118/62
[2021-06-09] MEDS: CEFEPIME 2 GM in IV D5W 100 ML IV SCH ×3 (04:00→20:59)
--- NOTE | 2021-06-09 05:59 | NUR ---
PIE BAKER CLOSING NOTES PATIENT IN BED, AWAKE. A/O X2, CONFUSED. NAD AND VSS. DENIES PAIN. COMMUNICATIVE SLEPT INTERMITTENTLY THROUGHOUT THE SHIFT. BiPAP CURRENTLY IN PLACE AND PATIENT CURRENTLY WITH EYES CLOSED EASILY AROUSED BY LIGHT TOUCH. TELEMETRY READING SR. L WRIST #20 TO SL, INTACT AND PATENT. NO S/SX OF INFILTRATION/ERYTHEMA TO OR SURROUNDING INSERTION SITE. DRESSING CDI. F/C IN PLACE AND PATENT DRAINING CLEAR YELLOW URINE. STRICT I & O OBSERVED WITH INPUT OF 345ML AND OUTPUT 600ML. GENERALIZED EDEMA 1+. BILATERAL NARES SPECIMEN SAMPLE ASCERTAINED AND SENT TO LAB FOR MRSA SCREENING. SAFETY MEASURES IN PLACE, BED IN LOW AND LOCK POSITION, CALL LIGHT AND TABLE WITHIN EASY REACH, SIDE RAILS UP X2. PATIENT DEMONSTRATES ABILITY TO USE CALL LIGHT AND VERBALIZE NEEDS EFFECTIVELY. Addendum: 06/09/21 at 0611 by SUKUMAR DEL ROSARIO RN ADDENDUM: TOTAL OUTPUT FOR SHIFT= 2200ML
--- NOTE | 2021-06-09 07:25 | NUR ---
FILM PROCESSING SUPERVISOR OPENING NOTES RECEIVED PATIENT ASLEEP IN BED ON BIPAP AT PRESCRIBED SETTINGS, TOLERATING SETTINGS WELL WITH NO ACUTE RESPIRATORY DISTRESS NOTED. HOB ELEVATED. PT IS A/O X2. VERBALLY RESPONSIVE, NO C/O PAIN AT THIS TIME. CURRENT TELE MONITOR SHOWS NSR, HR 67. IV ACCESS ON L WRIST G#20 INTACT AND PATENT. TENORIO CATHETER IN PLACE WITH CLEAR YELLOW URINE DRAINING VIA GRAVITY. SAFETY MEASURES IN PLACE: BED AT LOWEST LOCKED POSITION, BED ALARM ON, CALL LIGHT WITHIN EASY REACH AND SIDE RAILS UP X2. WILL CONTINUE TO MONITOR PT ACCORDINGLY.
[2021-06-09 08:00] VITALS: BP 118/78
--- NOTE | 2021-06-09 08:00 | NUR ---
RN NOTES RESPIRATORY THERAPIST CAME, REMOVED PT'S BIPAP AND PUT PT ON 02 VIA N/C AT 5LPM, TOLERATING WELL WITH NO ACUTE RESPIRATORY DISTRESS NOTED. WILL CONTINUE TO MONITOR.
[2021-06-09 08:08] LABS: BASOPHILS % (AUTO) 0.5 % (0.0-2.0); EOSINOPHILS % (AUTO) 1.2 % (0.0-6.0); HEMATOCRIT 33 % (33-45); HEMOGLOBIN 10.2 g/dL (11.5-14.8); LYMPHOCYTES # (AUTO) 2.1 K/uL (0.8-4.8); LYMPHOCYTES % (AUTO) 21.6 % (20.0-44.0); MEAN CORPUSCULAR HGB CONC 31 g/dl (31.0-36.0); MEAN CORPUSCULAR VOLUME 81 fL (82-100); MONOCYTES # (AUTO) 0.8 K/uL (0.1-1.30); MONOCYTES % (AUTO) 8.2 % (2.0-12.0); NEUTROPHILS # (AUTO) 6.8 K/uL (1.8-8.9); NEUTROPHILS % (AUTO) 68.5 % (43.0-81.0); PLATELET COUNT (AUTO) 287 K/uL (150-450); RED BLOOD CELL COUNT(AUTO) 4.08 MIL/uL (4.0-5.2); WHITE BLOOD COUNT (AUTO) 9.9 K/uL (4.3-11.0)
[2021-06-09] MEDS: PANTOPRAZOLE 40 MG/PACK PACK PO SCH (08:35)
[2021-06-09] MEDS: DEXAMETHASONE SOD PHOSPHATE 10 MG/ML VIAL IV SCH (08:36)
[2021-06-09] MEDS: FUROSEMIDE 40 MG/4 ML VIAL IV SCH ×2 (08:36→16:42)
[2021-06-09 08:46] LABS: CALCIUM, SERUM 8.4 mg/dL (8.5-10.1); CREATININE 0.5 mg/dL (0.6-1.3); PHOSPHORUS 3.6 mg/dL (2.5-4.9); POTASSIUM 3.8 mmol/L (3.5-5.1)
--- NOTE | 2021-06-09 10:12 | NUR ---
RN NOTES RECEIVED CALL FROM COMPUTER TECHNOLOGIST MARIE DOZIER THAT PT HAS CRITICAL HIGH BLOOD CO2 42, DR NUNO MADE AWARE BUT NO RESPOND RECEIVED. DR BUSTOS CAME TO SEE PT AND INFORMED OF CRITICAL HIGH CO2 42 AND STATED IT'S "OK" WITH NO NEW ORDER MADE AT THIS TIME. PT IN NO ACUTE SIGNS OF DISTRESS. WILL CONTINUE TO MONITOR
[2021-06-09 12:00] VITALS: BP 141/72
[2021-06-09 16:00] VITALS: BP 120/68
--- NOTE | 2021-06-09 18:58 | NUR ---
REFRIGERATOR ROOM CLERK CLOSING NOTES PATIENT RESTING AT MODERATE HIGH BACKREST POSITION WATCHING TV AT THIS TIME. A/O X3. ABLE TO MAKE NEEDS KNOWN. ON 02 VIA N/C AT 3LPM AT THIS TIME, TOLERATING WELL WITH NO ACUTE RESPIRATORY DISTRESS NOTED DURING SHIFT. CURRENT TELE MONITOR READING SHOWS NSR, HR ON THE 80'S. IV ACCESS ON L WRIST G#20 INTACT, PATENT AND FLUSHES WELL. TENORIO CATHETER IN PLACE DRAINING CLEAR YELLOW URINE DRAINING VIA GRAVITY, TENORIO CARE DONE. PT TURNED AND REPOSITIONED Q 2HRS AND PRN. KEPT CLEAN , DRY AND COMFORTABLE AT ALL TIMES. ALL NEEDS AND CARE ATTENDED WELL. SAFETY MEASURES IN PLACED: BED AT LOWEST LOCKED POSITION, BED ALARM ON, CALL LIGHT WITHIN EASY REACH AND SIDE RAILS UP X2. WILL ENDORSE LOLY TO HUB CUTTER APPRENTICE NURSE.
--- NOTE | 2021-06-09 20:00 | NUR ---
ORACLE DISTRIBUTION CONSULTANT NOTES RECEIVED ON BED A/O X4,OBESE,WATCHING TV PROGRAM,BREATHING REGULAR,NOT IN ANY FORM OF DISTRESS.SALINE LOCK LEFT WRIST LEAKING.NEW SALINE LOCK PLACE ON LEFT FOREARM #20.TENORIO CATH IN PLACE DRAINING CLEAR YELLOW OUTPUT.CALL LIGHT IN REACH,NEEDS ANTICIPATED.
[2021-06-09 20:47] VITALS: BP 94/55
--- NOTE | 2021-06-09 21:00 | NUR ---
WATER METER MECHANIC NOTES DUE IV PEDRO LUIS EVERETT
[2021-06-09] MEDS: ENOXAPARIN SODIUM 40 MG/0.4 ML DISP.SYRIN SQ SCH (21:03)
--- NOTE | 2021-06-09 22:15 | NUR ---
PROGRAM PROJECT ANALYST NOTES ON CPAP THIS TIME
--- NOTE | 2021-06-10 01:00 | NUR ---
CANDY SUPERVISOR NOTES SLEEPING,BIPAP TOLERATED WELL,IN NO ACUTE DISTRESS.
[2021-06-10] MEDS: CEFEPIME 2 GM in IV D5W 100 ML IV SCH ×2 (04:37→13:43)
--- NOTE | 2021-06-10 07:40 | NUR ---
FORMING OPERATOR OPENING NOTES RECEIVED PATIENT AWAKE IN BED, WITH NO ACUTE RESPIRATORY DISTRESS NOTED. HOB ELEVATED. PT IS A/O X2. VERBALLY RESPONSIVE, NO C/O PAIN AT THIS TIME. CURRENT TELE MONITOR SHOWS NSR, HR 67. IV ACCESS ON L WRIST G#20 INTACT AND PATENT. TENOROI CATHETER IN PLACE WITH CLEAR YELLOW URINE DRAINING VIA GRAVITY. SAFETY MEASURES IN PLACE: BED AT LOWEST LOCKED POSITION, BED ALARM ON, CALL LIGHT WITHIN EASY REACH AND SIDE RAILS UP X2. WILL CONTINUE TO MONITOR.
[2021-06-10 08:24] LABS: BASOPHILS % (AUTO) 0.3 % (0.0-2.0); EOSINOPHILS % (AUTO) 0.9 % (0.0-6.0); HEMATOCRIT 34 % (33-45); HEMOGLOBIN 10.5 g/dL (11.5-14.8); LYMPHOCYTES # (AUTO) 1.8 K/uL (0.8-4.8); LYMPHOCYTES % (AUTO) 15.2 % (20.0-44.0); MEAN CORPUSCULAR HGB CONC 31 g/dl (31.0-36.0); MEAN CORPUSCULAR VOLUME 81 fL (82-100); MONOCYTES # (AUTO) 1.1 K/uL (0.1-1.30); MONOCYTES % (AUTO) 9.2 % (2.0-12.0); NEUTROPHILS # (AUTO) 8.9 K/uL (1.8-8.9); NEUTROPHILS % (AUTO) 74.4 % (43.0-81.0); PLATELET COUNT (AUTO) 286 K/uL (150-450); RED BLOOD CELL COUNT(AUTO) 4.17 MIL/uL (4.0-5.2)
[2021-06-10] MEDS: DEXAMETHASONE SOD PHOSPHATE 10 MG/ML VIAL IV SCH (08:34)
[2021-06-10] MEDS: FUROSEMIDE 40 MG/4 ML VIAL IV SCH ×2 (08:36→16:38)
[2021-06-10] MEDS: PANTOPRAZOLE 40 MG/PACK PACK PO SCH (08:36)
[2021-06-10 08:42] LABS: CALCIUM, SERUM 8.9 mg/dL (8.5-10.1); CREATININE 0.5 mg/dL (0.6-1.3); MAGNESIUM 2.3 mg/dL (1.8-2.4); PHOSPHORUS 3.8 mg/dL (2.5-4.9); POTASSIUM 3.9 mmol/L (3.5-5.1)
[2021-06-10 08:49] VITALS: BP 108/58
--- NOTE | 2021-06-10 10:09 | NUR ---
TELE/RN NOTES- CRITICAL RESULT LAB CALLED AND REPORTED CRITICAL CO2 RESULT OF 42. NOTIFIED DR. GONZALEZ VIA SECURE TEXT AND PER DR. GONZALEZ- CHRONIC AND NO NEW ORDERS.
[2021-06-10] MEDS ORDERED: FURO-144 PO (15:55)
[2021-06-10] MEDS ORDERED: PANT40SU2 PO (15:55)
[2021-06-10] MEDS ORDERED: DEXA6TAB6 PO (15:55)
[2021-06-10 16:02] VITALS: BP 104/58
--- NOTE | 2021-06-10 19:08 | NUR ---
TELE/CARE TRANSITION MANAGER NOTES PATIENT IS ALERT AND ORIENTED X2-3, ABLE TO MAKE NEEDS KNOWN. ON 3LPM OF O2 CONTINUOUS. BEDBOUND. PATIENT IS CLEARED FOR DISCHARGE AND EMT CAME TO STRAIGHT RULING MACHINE OPERATOR PATIENT TO GO BACK TO SNF. CALLED IN REPORT TO DOMINGO HAYWOOD. IV ACCESS DISCONTINUED, TENORIO CATHETER IN PLACED. ALL BELONGINGS ACCOUNTED FOR.
== END 2021-06-10 18:45 | DRG 871 ==
LOC: ER 13:44 → TELE1 21:21 → TELE-TD 23:29 → TELE1 06-05 13:05 → TELE 06-06 09:21
PROVIDERS: ADMIT Hospitalist; ATTEND Student in an Organized Health Care Education/Training Program
PROC: 5A09557 Assistance with Respiratory Ventilation, Greater than 96 Consecutive Hours, Continuous Positive Airway Pressure (ICD-10-PCS; principal; 2021-06-03)
DX: A41.9 Sepsis, unspecified organism (principal); G93.41 Metabolic encephalopathy; J15.9 Unspecified bacterial pneumonia; I50.31 Acute diastolic (congestive) heart failure; J96.02 Acute respiratory failure with hypercapnia; J96.01 Acute respiratory failure with hypoxia; J44.0 Chronic obstructive pulmonary disease with (acute) lower respiratory infection; E44.0 Moderate protein-calorie malnutrition; E66.2 Morbid (severe) obesity with alveolar hypoventilation; Z68.41 Body mass index [BMI] 40.0-44.9, adult; E66.9 Obesity, unspecified; I11.0 Hypertensive heart disease with heart failure; Z20.822 Contact with and (suspected) exposure to COVID-19; K21.9 Gastro-esophageal reflux disease without esophagitis; K57.90 Diverticulosis of intestine, part unspecified, without perforation or abscess without bleeding; Z91.041 Radiographic dye allergy status; Z91.013 Allergy to seafood; Z91.018 Allergy to other foods; Z91.048 Other nonmedicinal substance allergy status; Z79.899 Other long term (current) drug therapy; Z79.51 Long term (current) use of inhaled steroids; Z66 Do not resuscitate; D63.8 Anemia in other chronic diseases classified elsewhere; I50.9 Heart failure, unspecified; E11.65 Type 2 diabetes mellitus with hyperglycemia; E03.9 Hypothyroidism, unspecified; I70.0 Atherosclerosis of aorta; Y95 Nosocomial condition
CPT/HCPCS: 36415; 36600; 71045-TC; 80048-TC; 80053-TC; 80061-TC; 80076-TC; 81001; 82803-TC; 83605-TC; 83735-TC; 83880; 84100-TC; 84443-TC; 84484-TC; 85025-TC; 87040-TC; 87081-TC; 87086-TC; 93307-TC; 94660; 94760-TC; 94762-TC; 94799-TC; 99082-TC; A6253; C9113; C9803; G0378; J0456; J0692; J1100; J1650; J1940; J2930; J3490; J7030; J7060; U0003

== ENCOUNTER 2022-11-11 22:25 | Inpatient (IN) | payer MEDICARE, OTHER ==
[~2022-11-11] VITALS: Ht 167.6 cm; Wt 110.2 kg
[~2022-11-11 22:25] MED LIST changes: +ACET-868 PO; +AMIN30LI2 PO; -BISA10SU11 RC; -CRAN200C PO; +CRAN425C6 PO; +DEXA6TAB6 PO; +DOCU100C36 PO; -DOCU250C14 PO; -ENOX40DI SQ; +FURO-144 PO; -FURO20TA4 PO; -GABA-532 PO; +GUAI100S11 PO; -IPRA3AMP23 IH; +IPRA4AER IH; -LEVO50TA PO; +LEVO50TA8 PO; -LORA10TA7 PO; +MAGN400O6 PO; +OMEG-88 PO; +PANT40SU2 PO; -PANT40TA2 PO; -POTA20PA3 PO
--- NOTE | 2022-11-11 22:44 | NUR ---
[id number] FROM [facility] W/ CC SOB, RA 87%, PLACE 6LPM O2 94% GOVERNMENT AUDITOR. PT IS CONFUSED. WITH PRN O2 AT [facility] D/T COPD (POLST DNR/DNI).
--- NOTE | 2022-11-11 22:48 | NUR ---
AT BEDSIDE FOR EVAL
--- NOTE | 2022-11-11 22:55 | NUR ---
BLOOD DRAWN AND SENT TO LAB
[2022-11-11] MEDS ORDERED: IPRATROPIUM NEB FS 0.5 MG/2.5 ML AMPUL.NEB NEB ONE (23:00)
[2022-11-11] MEDS ORDERED: ALBUTEROL FS 2.5 MG/3 ML VIAL.NEB CONTNEB ONE (23:00)
[2022-11-11] MEDS ORDERED: methylPREDNISolone SOD SUCC 125 MG/2ML VIAL IV ONE (23:00)
--- NOTE | 2022-11-11 23:02 | NUR ---
RT CALLED FOR ABG & BREATHING TX
[2022-11-11] MEDS ORDERED: methylPREDNISolone SOD SUCC 125 MG/2ML VIAL ONE (23:03)
[2022-11-11] MEDS ORDERED: ALBUTEROL FS 2.5 MG/3 ML VIAL.NEB ONE (23:15)
[2022-11-11] MEDS ORDERED: IPRATROPIUM NEB FS 0.5 MG/2.5 ML AMPUL.NEB ONE (23:15)
--- NOTE | 2022-11-11 23:22 | NUR ---
RT AT PT'S BEDSIDE FOR BREATHING TX
[2022-11-11 23:25] LABS: BASOPHILS # (AUTO) 0.1 K/uL (0.0-0.2); BASOPHILS % (AUTO) 0.6 % (0.0-2.0); EOSINOPHILS % (AUTO) 1.6 % (0.0-6.0); HEMATOCRIT 37 % (33-45); HEMOGLOBIN 11.6 g/dL (11.5-14.8); LYMPHOCYTES # (AUTO) 0.9 K/uL (0.8-4.8); LYMPHOCYTES % (AUTO) 8.7 % (20.0-44.0); MEAN CORPUSCULAR HGB CONC 32 g/dl (31.0-36.0); MEAN CORPUSCULAR VOLUME 83 fL (82-100); MONOCYTES # (AUTO) 0.8 K/uL (0.1-1.30); MONOCYTES % (AUTO) 7.5 % (2.0-12.0); NEUTROPHILS # (AUTO) 8.2 K/uL (1.8-8.9); NEUTROPHILS % (AUTO) 81.6 % (43.0-81.0); PLATELET COUNT (AUTO) 256 K/uL (150-450); RED BLOOD CELL COUNT(AUTO) 4.45 MIL/uL (4.0-5.2)
[2022-11-11 23:26] LABS: ABG BASE EXCESS 11.6 mmol/L; ABG PCO2 103.6 mmHg (35.0-45.0); ABG PH 7.237 (7.350-7.450); COHb 0.9 % (0.5-1.5); MetHb 0.4 % (0.0-1.5); O2Hb 92.4 % (94.0-97.0); SITE, ABG Left Radial; VENT MODE, BG 6L NASAL CANNULA
--- NOTE | 2022-11-11 23:29 | NUR ---
CASH MANAGEMENT CLERK AT PT'S BEDSIDE
[2022-11-12] MEDS ORDERED: Magnesium 1GM/D5W 100ML PREMIX 200 ML IV ONE ×2 (00:02)
[2022-11-12 00:17] LABS: ALANINE AMINOTRANSFERASE 26 U/L (12-78); ALBUMIN 2.9 g/dL (3.4-5.0); ALKALINE PHOSPHATASE 101 U/L (46-116); ASPARTATE AMINOTRANSFERASE 16 U/L (15-37); BILIRUBIN,DIRECT 0.1 mg/dL (0.0-0.2); BILIRUBIN,TOTAL 0.1 mg/dL (0.2-1.0); CALCIUM, SERUM 8.8 mg/dL (8.5-10.1); CHLORIDE 93 mmol/L (98-107); CREATININE 0.3 mg/dL (0.6-1.3); GLUCOSE 117 mg/dL (74-106); POTASSIUM 4.6 mmol/L (3.5-5.1); SODIUM SERUM 133 mmol/L (136-145); TOTAL PROTEIN, SERUM 7.8 g/dL (6.4-8.2); UREA NITROGEN, BLOOD 13 mg/dL (7-18)
[2022-11-12 00:20] LABS: CARBON DIOXIDE 45 mmol/L (21-32)
[2022-11-12] MEDS ORDERED: MAGNESIUM HYDROXIDE 30 ML UDC PO PRN (02:00)
[2022-11-12] MEDS ORDERED: IPRATROPIUM NEB FS 0.5 MG/2.5 ML AMPUL.NEB NEB PRN (02:00)
[2022-11-12] MEDS ORDERED: MAG HYDROX/AL HYDROX/SIMETH 30 ML UDC PO PRN (02:00)
[2022-11-12] MEDS ORDERED: ACETAMINOPHEN 325 MG TABLET PO PRN (02:00)
[2022-11-12] MEDS ORDERED: ONDANSETRON HCL/PF 4 MG/2 ML VIAL IVP PRN (02:00)
[2022-11-12] MEDS ORDERED: Z GUARD REMEDY 4 OZ OINT TP PRN (02:00)
[2022-11-12] MEDS ORDERED: ALBUTEROL FS 2.5 MG/3 ML VIAL.NEB NEB PRN (02:00)
--- NOTE | 2022-11-12 02:21 | NUR ---
PT ON BIPAP SETTINGS EPAP 20 IPAP 5 FIO2 35% TOLERATING AT 90%
--- NOTE | 2022-11-12 02:44 | NUR ---
SPOKE TO BUDDY LOTT TEST CONDUCTOR, HOSPITALIST AND MADE HIM AWARE OF THE BIPAP PLACEMENT. CONCIDERING PATIENT'S CODE STATUS LEVEL OF CARE UPDATED TO TELE JUSTINE. GOING TO RM 106.
--- NOTE | 2022-11-12 03:02 | NUR ---
REPORT GIVEN TO PAGE FLETCHER RN FOR LOLY
--- NOTE | 2022-11-12 03:21 | NUR ---
PT TRANSFERRED TO 106 VIA ACLS PROTOCOL WITH RT. ALL BELONGINGS WITH PT. PT TOLERATED TRANSFER WELL.
[2022-11-12 03:30] VITALS: BP 103/47
--- NOTE | 2022-11-12 03:30 | NUR ---
ADMISSION NOTES, RECEIVED PATIENT VIA STRETCHER FROM ER DEPARTMENT, ACCOMPANIED BY 2 NURSES AND 2 RTS, PATIENT ON CONTINUOUS BIPAP, FOR INCREASED PCO2 103 IN ABGS, PATIENT RESPOND TO NAME UPON TACTILE STIMULI, AROUSES TO TACTILE STIMULI, TOLERATED SETTINGS WELL, WITH THE HIGHEST O2 SAT LEVEL 92%, 103, 47, 98.3M 22, UNDER MEDICAL SERVICES OF BUDDY GUY DNP, WITH ADMITTING DX ACUTE HYPERCAPNIC RESPIRATORY FAILURE SECONDARY DX COPD EXACERBATION, PIV LINE PATENT AN INTACT LEFT FA AND RIGHT WRIST BOTH PATENT AND INTACT, AFEBRILE, SKIN INTACT, WITH SOME REDNESS ON LEFT AXILAR, LEFT UNDER BREAST FOLD AND SACRAL, ABEL BATH GIVEN UPON ADMISSION, ALL SAFETY PRECAUTIONS MAINTAINED, NPO STATUS, PT LETHARGIC, DNR/DNI, BED LOCKED AND IN LOWEST POSITION, WILL CONTINUE TO MONITOR CLOSELY.
[2022-11-12] MEDS ORDERED: methylPREDNISolone SOD SUCC 40 MG/ML VIAL ONE (04:12)
[2022-11-12 04:23] LABS: ABG BASE EXCESS 17.1 mmol/L; ABG PCO2 97.7 mmHg (35.0-45.0); ABG PH 7.311 (7.350-7.450); ABG PO2 51.2 mmHg (75.0-100.0); COHb 1.1 % (0.5-1.5); MetHb 0.2 % (0.0-1.5); SITE, ABG Right Radial; VENT MODE, BG ST 20/5 18 35%
[2022-11-12] MEDS ORDERED: methylPREDNISolone SOD SUCC 40 MG/ML VIAL IV SCH (05:00)
--- NOTE | 2022-11-12 06:10 | NUR ---
END OF SHIFT, PATIENT CONTINUE ON CONTINUOS BIPAP, TOLERATING SETTINGS WELL EITH O2 WNL, NSR IN TELE MONITOR, LEFT FA AND RIGHT WRIST S/L BOTH PATENT AND INTACT, AFEBRILE, OTHERWISE REMAINED WITH STABLE VITAL SINGS THE REST OF THE SHIFT, ALL SAFETY PRECAUTIONS MAINTAINED, NPO STATUS, PT CONTINUE LETHARGIC, DNR/DNI, RTS AT BEDSIDE AT THIS TIME ASSESSING PATIENT, WILL HAVE ABGS AGAIN LATER THIS MORNING, BED LOCKED AND IN LOWEST POSITION, BILATERAL 1/2 S/R SIDE UP X2, WILL ENDORSE CONTINUITY OF CARE TO ONCOMING NURSE
--- NOTE | 2022-11-12 07:38 | NUR ---
JUSTINE RN NOTE RECEIVED PATIENT IN BED LETHARGIC RESPONSE TO VERBAL STIMULI, ON BIPAP SETTING ORDERED NO SOB NOTED AT THIS TIME, ON TELE MONITOR SR HR 84, ON NPO STATUS AT THIS TIME, HL ON RT WRIST AND LT FA INTACT , BED IN LOWEST AND LOCKED POSITION , CALL LIGHT WITHIHN REACH WILL CONT TO MONITOR, KEEP HOB ELEVATED SAFETY IMPLEMENTED
[2022-11-12 08:00] VITALS: BP 106/61
[2022-11-12] MEDS: PANTOPRAZOLE 40 MG VIAL IV SCH (08:47)
--- NOTE | 2022-11-12 09:21 | NUR ---
jordyn rn note per rt and dr ponce changed bipap setting 19/10 rr 18, dr ponce at bedside updated patient condition
--- NOTE | 2022-11-12 10:26 | NUR ---
jordyn rn note seen by yonas Hinds updated patient condition asked about gentle hydration stated no at this time, cont npo
[2022-11-12] MEDS: ENOXAPARIN SODIUM 40 MG/0.4 ML DISP.SYRIN SQ SCH (10:29)
[2022-11-12] MEDS: IPRATROPIUM NEB FS 0.5 MG/2.5 ML AMPUL.NEB NEB SCH ×4 (11:30→23:49)
[2022-11-12] MEDS: ALBUTEROL FS 2.5 MG/3 ML VIAL.NEB NEB SCH ×4 (11:30→23:49)
[2022-11-12 12:00] VITALS: BP 106/64
--- NOTE | 2022-11-12 12:27 | NUR ---
jordyn rn note turn reposition done pure wick placed, keep clean dry , skin care done , will cont to monitor
[2022-11-12] MEDS ORDERED: ESCI10TA PO (14:16)
[2022-11-12] MEDS ORDERED: CYCL30DR EACHEYE (14:16)
[2022-11-12] MEDS ORDERED: GLUC1KIT IM (14:16)
[2022-11-12] MEDS ORDERED: DOCU-141 PO (14:16)
[2022-11-12] MEDS ORDERED: EYEL1KIT TP (14:16)
[2022-11-12] MEDS ORDERED: POLY15DR40 EACHEYE (14:16)
--- NOTE | 2022-11-12 15:00 | NUR ---
JUSTINE RN NOTE NOTED THAT PATENT UNABLE TO URINATE BLADDER SCANNER DONE , NOTED MORE THAT 500 ML OF URINE RETAINED, WILL CALL TO OVIDIO MARINELLI
--- NOTE | 2022-11-12 15:24 | NUR ---
JUSTINE RN NOTES PER DNP MARBIN [place] STRAIGHT CATH DONE 500 URINE OUT YELLOW COLOR REMOVED, WE WILL DOI IT AGAIN Q6 HOURS PER ORDER.
[2022-11-12 16:00] VITALS: BP 101/45
[2022-11-12] MEDS: dexaMETHasone SOD PHOSPHATE 10 MG/ML VIAL IV SCH (16:40)
--- NOTE | 2022-11-12 18:29 | NUR ---
JUSTINE RN NOTE PTS IS ON THE BED W/ BIPAP SAT OKAY 95% PTS IS LETHARGIC BUT RESPONSE TO TACTILE STIMULI PATIENT IS ON PUREWICK NO URINE NOTED LFA 20G INTACT FLUS WELL BED LOCK POSITION NO DISTRESS CALL LIGHT IN REACH CONTINUE SAFETY MEASURE CLEAN DRY
--- NOTE | 2022-11-12 19:43 | NUR ---
JUSTINE RN OPENING NOTE RECEIVED PT IN BED, SLEEPING BUT EASILY AROUSABLE. OPENED BOTH EYE WHEN CALLED HER NAME. ON BIPAP 25/5 AND PT TOLERATED WELL. O2 SAT 95%. IV ACCESS ON LFA#20 G AND RT WRIST#22G INTACT AND PATENT. NO S/S OF INFILTRATIONS. NO FACIAL GRIMACING NOTED. NO ACUTE DISTRESS. ON PUREWICK NO URINE NOTED. ALL SAFETY MEASURES IN PLACE. BED IN LOWEST POSITION AND LOCKED. SIDE RAILS UP X3, PLACE CALL LIGHT WITH IN REACH. WILL CONTINUE TO MONITOR
[2022-11-12 20:00] VITALS: BP 106/55
--- NOTE | 2022-11-12 21:20 | NUR ---
RN NOTES: INSERTED STRAIGHT CATH. 250CC OUTPUT URINE OUT.
[2022-11-13] VITALS: BP 101/87
[2022-11-13 04:00] VITALS: BP 116/49
[2022-11-13] MEDS: IPRATROPIUM NEB FS 0.5 MG/2.5 ML AMPUL.NEB NEB SCH ×5 (05:40→19:37)
[2022-11-13] MEDS: ALBUTEROL FS 2.5 MG/3 ML VIAL.NEB NEB SCH ×5 (05:40→19:37)
--- NOTE | 2022-11-13 06:30 | NUR ---
JUSTINE RN CLOSING NOTE PT IN BED, SLEEPING BUT EASILY AROUSABLE. ALERT/ORIENTED X1-2 AND VERBALLY RESPONSIVE. ON BIPAP AND PT TOLERATED WELL. O2 SAT 95%. IV ACCESS ON LFA#20 G AND RT WRIST#22G INTACT AND PATENT. NO S/S OF INFILTRATIONS. NO FACIAL GRIMACING NOTED. NO ACUTE DISTRESS. TOTAL URINE OUTPUT 550CC. ALL SAFETY MEASURES IN PLACE. BED IN LOWEST POSITION AND LOCKED. SIDE RAILS UP X3, PLACE CALL LIGHT WITH IN REACH. WILL ENDORSE TO MORNING SHIFT NURSE.
[2022-11-13 06:54] LABS: BASOPHILS % (AUTO) 0.2 % (0.0-2.0); HEMATOCRIT 36 % (33-45); HEMOGLOBIN 11.6 g/dL (11.5-14.8); LYMPHOCYTES % (AUTO) 11.1 % (20.0-44.0); MEAN CORPUSCULAR HGB CONC 32 g/dl (31.0-36.0); MEAN CORPUSCULAR VOLUME 80 fL (82-100); MONOCYTES # (AUTO) 0.9 K/uL (0.1-1.30); MONOCYTES % (AUTO) 9.6 % (2.0-12.0); NEUTROPHILS % (AUTO) 79.1 % (43.0-81.0); PLATELET COUNT (AUTO) 288 K/uL (150-450); RED BLOOD CELL COUNT(AUTO) 4.51 MIL/uL (4.0-5.2); WHITE BLOOD COUNT (AUTO) 8.9 K/uL (4.3-11.0)
[2022-11-13 07:04] LABS: CALCIUM, SERUM 8.8 mg/dL (8.5-10.1); CREATININE 0.7 mg/dL (0.6-1.3); MAGNESIUM 2.3 mg/dL (1.8-2.4); PHOSPHORUS 2.3 mg/dL (2.5-4.9); POTASSIUM 3.9 mmol/L (3.5-5.1)
--- NOTE | 2022-11-13 07:25 | NUR ---
JUSTINE RN OPEN NOTE PT IN BED, SLEEPING BUT EASILY AROUSABLE. ALERT/ORIENTED X1-2 AND VERBALLY RESPONSIVE. ON BIPAP AND PT TOLERATED WELL. O2 SAT 95%. IV ACCESS ON LFA#20 G AND RT WRIST#22G INTACT AND PATENT. NO S/S OF INFILTRATIONS. NO FACIAL GRIMACING NOTED. NO ACUTE DISTRESS. ALL SAFETY MEASURES IN PLACE. BED IN LOWEST POSITION AND LOCKED. SIDE RAILS UP X3, PLACE CALL LIGHT WITH IN REACH. WILL CONTINUE TO MONITOR
[2022-11-13 08:00] VITALS: BP 110/67
--- NOTE | 2022-11-13 08:17 | NUR ---
WOUND CARE CONSULT: PT PRESENTS WITH FRAGILE SKIN, RASH/REDNESS TO RT AXILLA, RT BREASTFOLD AND ABDOMINAL/GROIN FOLD, PRESENT ON ADMISSION. REDNESS WITH EDEMA NOTED TO LEFT ARM. RN TO DISCUSS WITH MD. LEFT ARM ELEVATED ON PILLOW. DISCUSSED SKIN PROTECTION WITH NURSING STAFF. MD IN AGREEMENT WITH PLAN OF CARE. Addendum: 11/13/22 at 0818 by ANUP FLORENCE WNDNU Amended: Links added.
[2022-11-13] MEDS: dexaMETHasone SOD PHOSPHATE 10 MG/ML VIAL IV SCH ×2 (08:39→16:46)
[2022-11-13] MEDS: PANTOPRAZOLE 40 MG VIAL IV SCH (08:39)
[2022-11-13] MEDS: ENOXAPARIN SODIUM 40 MG/0.4 ML DISP.SYRIN SQ SCH (08:46)
[2022-11-13] MEDS: K PHOS NEUTRAL 250 MG TABLET PO SCH ×3 (11:32→23:51)
[2022-11-13] MEDS: CLOTRIMAZOLE 1% 15 GM TUBE TP SCH ×2 (11:47→16:46)
[2022-11-13 12:00] VITALS: BP 118/58
[2022-11-13 16:00] VITALS: BP 135/65
--- NOTE | 2022-11-13 18:36 | NUR ---
SALESPERSON BURIAL NEEDS CLOSING NOTE PT IN BED, ALERT/ORIENTED X 2-3 AND VERBALLY RESPONSIVE. ON O2 2 L VIA N/C TOLERATING WELL O2 SAT 98 % IV ACCESS FANY MID LINE 18 G NO FLUSHES FREELY . NO FACIAL GRIMACING NOTED. NO ACUTE DISTRESS. TENORIO CATH IN PLACE TOTAL URINE OUTPUT 580CC. ALL SAFETY MEASURES IN PLACE. BED IN LOWEST POSITION AND LOCKED. SIDE RAILS UP X3, PLACE CALL LIGHT WITH IN REACH. WILL ENDORSE TO SCHEDULE MAKER NURSE.
--- NOTE | 2022-11-13 19:45 | NUR ---
RN OPENING NOTES RECEIVED PT IN BED, SLEEPING BUT EASILY AROUSABLE. ALERT/ORIENTED X2 AND VERBALLY RESPONSIVE. PT IS ON NOCTURNAL BIPAP. IV ACCESS ON FANY MIDLINE INTACT AND PATENT. NO C/O PAIN OR DISCOMFORT. NO ACUTE DISTRESS. TENORIO CATHETER IN PLACE. DRAINING BY GRAVITY. ALL SAFETY MEASURES IN PLACE. BED IN LOWEST POSITION AND LOCKED. SIDE RAILS UP X3, PLACE CALL LIGHT WITH IN REACH. WILL CONTINUE TO MONITOR
[2022-11-13 20:00] VITALS: BP 119/68
[2022-11-14] VITALS: BP 123/61
[2022-11-14] MEDS: ALBUTEROL FS 2.5 MG/3 ML VIAL.NEB NEB SCH ×6 (00:02→20:06)
[2022-11-14] MEDS: IPRATROPIUM NEB FS 0.5 MG/2.5 ML AMPUL.NEB NEB SCH ×6 (00:02→20:06)
[2022-11-14 04:00] VITALS: BP 114/51
[2022-11-14] MEDS: K PHOS NEUTRAL 250 MG TABLET PO SCH (06:10)
--- NOTE | 2022-11-14 06:30 | NUR ---
RN CLOSING NOTES PT IN BED, AWAKE, ALERT/ORIENTED X2 AND VERBALLY RESPONSIVE. PT IS ON NOCTURNAL BIPAP. IV ACCESS ON FANY MIDLINE INTACT AND PATENT. NO C/O PAIN OR DISCOMFORT. NO ACUTE DISTRESS. TENORIO CATHETER IN PLACE. DRAINING BY GRAVITY. ALL SAFETY MEASURES IN PLACE. BED IN LOWEST POSITION AND LOCKED. SIDE RAILS UP X3, PLACE CALL LIGHT WITH IN REACH. ALL DUE MEDS GIVEN, WE ENDORSED TO MORNING SHIFT, NO SIGNIFICANT CHANGES DURING THE SHIFT.
--- NOTE | 2022-11-14 07:34 | NUR ---
GREY TENDER NOTE PT IS AWAKE A&OX3, ON 2L NC. NO SOB NOTED PT ON TELEMETRY SR. PT IS ON TENORIO CATH TO GRAVITY. FANY ML IN PLACED AND FLUSHED WELL. PT IS NOT IN DISTRESS AT THIS TIME. CALL LIGHT WITHIN REACH. BED IS LOCKED AND IN LOWEST POSITION. SAFETY MEASURE IMPLEMENTED. WILL CONTNUUE TO MONITOR.
[2022-11-14 08:00] VITALS: BP 121/49
[2022-11-14] MEDS: dexaMETHasone SOD PHOSPHATE 10 MG/ML VIAL IV SCH ×2 (08:36→16:45)
[2022-11-14] MEDS: PANTOPRAZOLE 40 MG TABLET.DR PO SCH (08:36)
[2022-11-14] MEDS: CLOTRIMAZOLE 1% 15 GM TUBE TP SCH ×2 (08:37→16:46)
[2022-11-14] MEDS: ENOXAPARIN SODIUM 40 MG/0.4 ML DISP.SYRIN SQ SCH (08:37)
[2022-11-14] MEDS: ESCITALOPRAM OXALATE (10 MG) 10 MG TABLET PO SCH (09:16)
--- NOTE | 2022-11-14 09:30 | NUR ---
ASSISTED LIVING ADMINISTRATOR NOTE DNP MARBIN MARINELLI AT BEDSIDE AWARE THAT NA 131 NO NEW ORDER GIVEN
--- NOTE | 2022-11-14 10:31 | NUR ---
MITOCHONDRIAL DISORDERS COUNSELOR NOTE ROUND MADE KEEP CLEAN DRY , CALL LIGHT WITHIHN REACH
[2022-11-14 12:05] VITALS: BP 125/50
--- NOTE | 2022-11-14 12:16 | NUR ---
telephone recorder note having dinner , able to eat self ,not in distress
--- NOTE | 2022-11-14 15:47 | NUR ---
SUPERVISOR REWORK NOTE ROUNDS MADE , OM BREATHING TX BY RT ,WILL CONT TO MONITOR
[2022-11-14 16:00] VITALS: BP 117/86
--- NOTE | 2022-11-14 18:34 | NUR ---
LIQUOR INSPECTOR NOTE PT IS IN BED ALERT AND AWAKE ON 2 L NC. NO SOB NOTED. RIGHT UPPER MIDLINE IN PLACED AN D FLUSHED WELL. PT IS ON TELE MONITOR SINUS RHYTHM WITH FC TO GRAVITY WITH YELLOW COLOR URINE. ALL NEEDS ATTENDED. SAFETY MEASURES IMPLEMENTED. CALL LIGHT WITH IN REACH. BED IS LOCKED AND IN LOWEST POSITION. WILL MONITOR AND ENDORSE TO STOCK TAKER RN.
--- NOTE | 2022-11-14 19:45 | NUR ---
SOCIAL WORKER OPENING NOTE PT IS IN BED ALERT AND AWAKE ON 2 L NC. NO SOB NOTED. RIGHT UPPER MIDLINE IN PLACED, FLUSHING WELL, PATENT AND INTACT. PT IS ON TELE MONITOR SINUS RHYTHM. FC IN PLACE, DRAINING YELLOW COLOR OUTPUT. CALL LIGHT WITH IN REACH. BED IS LOCKED AND IN LOWEST POSITION, SR UP X2, BED ALARM ON. WILL CONTINUE MONITORING
[2022-11-14 20:00] VITALS: BP 124/64
--- NOTE | 2022-11-14 23:55 | NUR ---
MANAGER CHILD NOTE PATIENT ON BIPAP. IPAP 25, EPAP 5, RR 18, FIO2 35%. O2 SATURATION 97%. WILL CONTINUE TO MONITOR.
[2022-11-15] VITALS: BP 128/66
[2022-11-15] MEDS: ALBUTEROL FS 2.5 MG/3 ML VIAL.NEB NEB SCH ×4 (03:52→11:28)
[2022-11-15] MEDS: IPRATROPIUM NEB FS 0.5 MG/2.5 ML AMPUL.NEB NEB SCH ×4 (03:52→11:28)
[2022-11-15 04:00] VITALS: BP 118/69
--- NOTE | 2022-11-15 05:45 | NUR ---
ELIGIBILITY TECHNICIAN NOTE BIPAP REMOVED. PATIENT BACK ON NC AT 2 LPM OF SUPPLEMENTAL OXYGEN. O2 SATURATION 98%. WILL CONTINUE TO MONITOR.
--- NOTE | 2022-11-15 06:40 | NUR ---
DIRECTOR OF PHYSIOTHERAPY SERVICES CLOSING NOTE PT IS IN BED ALERT AND AWAKE ON 2 L NC. NO SOB NOTED. RIGHT UPPER MIDLINE IN PLACED, FLUSHING WELL, PATENT AND INTACT. PT IS ON TELE MONITOR SINUS RHYTHM, HR 65. FC IN PLACE, DRAINING YELLOW COLOR OUTPUT. CALL LIGHT WITH IN REACH. BED IS LOCKED AND IN LOWEST POSITION, SR UP X2, BED ALARM ON. WILL ENDORSE TO THE NEXT SHIFT RN
--- NOTE | 2022-11-15 07:00 | NUR ---
SANDWICH ARTIST OPENING NOTE PATIENT AWAKE, ALERT AND ORIENTED X3. 02 2L N/C O2 SAT 99%, TELE-MONITOR ON SR, PATIENT DENIES PAIN, NO RESPIRATORY DISTRESS NOTED. HOB ELEVATED. IV ACCESS TO FANY MIDLINE INTACT. SCD IN PLACE PER DVT PREVENTION. F/C IN PLACE DRAINING CLEAR ERIC URINE. SAFETY MEASURES IN PLACE, BED LOCKED TO THE LOWEST POSITION, CALL LIGHT AND TABLE WITHIN REACH. CONT. TO MONITOR.
[2022-11-15] MEDS ORDERED: LEVOTHYROXINE SODIUM 50 MCG TABLET PO SCH (07:30)
[2022-11-15 08:00] VITALS: BP 118/88
[2022-11-15] MEDS: ESCITALOPRAM OXALATE (10 MG) 10 MG TABLET PO SCH (08:22)
[2022-11-15] MEDS: PANTOPRAZOLE 40 MG TABLET.DR PO SCH (08:22)
[2022-11-15] MEDS: ENOXAPARIN SODIUM 40 MG/0.4 ML DISP.SYRIN SQ SCH (08:25)
[2022-11-15] MEDS: dexaMETHasone SOD PHOSPHATE 10 MG/ML VIAL IV SCH (08:56)
[2022-11-15] MEDS: CLOTRIMAZOLE 1% 15 GM TUBE TP SCH (09:00)
--- NOTE | 2022-11-15 12:30 | NUR ---
[facility] DISCHARGE NOTE PATIENT IS GOING TO [facility]. REPORT GIVEN TO HEVER LANE. PATIENT IS GOING VIA AMBULANCE ACCOMPANIED BY [employer]. PATIENT INFORMED REGARDING DISCHARGE AND PATIENT WAS HAPPY WITH THE NEWS. PATIENT AWAKE, ALERT AND ORIENTED X3. PATIENT DENIES PAIN, DENIES SOB, 02 2L N/C 02 SAT 97%, NO S/S OF RESPIRATORY DISTRESS NOTED, IV ACCESS TO RIGHT ARM REMOVED, CATHETER TIP INTACT, NO S/S OF INFILTRATION NOTED. BUTTOCKS REDNESS PRESENT ON ADMISSION, PICTURES TAKEN PER HOSPITAL PROTOCOL. F/C IN PLACE DRAINING CLEAR YELLLOW URINE 1,400ML PRIOR DISCHARGED. B/P 137/76 [id number] RESP 20 TEMP 98.2 .
== END 2022-11-15 13:02 | DRG 190 ==
LOC: ER 22:27 → TELE 11-12 01:58 → TELE-TD 11-12 02:42 → TELE1 11-13 08:39
PROVIDERS: ADMIT Nurse Practitioner Acute Care; ATTEND Nurse Practitioner Acute Care
PROC: 5A09457 Assistance with Respiratory Ventilation, 24-96 Consecutive Hours, Continuous Positive Airway Pressure (ICD-10-PCS; principal; 2022-11-12)
PROC: 05HD33Z Insertion of Infusion Device into Right Cephalic Vein, Percutaneous Approach (ICD-10-PCS; 2022-11-13)
DX: J44.1 Chronic obstructive pulmonary disease with (acute) exacerbation (principal); J96.21 Acute and chronic respiratory failure with hypoxia; J96.22 Acute and chronic respiratory failure with hypercapnia; E66.2 Morbid (severe) obesity with alveolar hypoventilation; I50.32 Chronic diastolic (congestive) heart failure; E87.1 Hypo-osmolality and hyponatremia; E87.3 Alkalosis; I11.0 Hypertensive heart disease with heart failure; K21.9 Gastro-esophageal reflux disease without esophagitis; Z20.822 Contact with and (suspected) exposure to COVID-19; K57.90 Diverticulosis of intestine, part unspecified, without perforation or abscess without bleeding; Z87.19 Personal history of other diseases of the digestive system; E11.9 Type 2 diabetes mellitus without complications; E03.9 Hypothyroidism, unspecified; Z98.890 Other specified postprocedural states; Z91.041 Radiographic dye allergy status; Z91.013 Allergy to seafood; Z91.018 Allergy to other foods; Z91.048 Other nonmedicinal substance allergy status; Z79.51 Long term (current) use of inhaled steroids; Z79.899 Other long term (current) drug therapy; Z66 Do not resuscitate; E83.39 Other disorders of phosphorus metabolism; L53.9 Erythematous condition, unspecified
CPT/HCPCS: 36415; 36600; 71045-TC; 80048-TC; 80076-TC; 82803-TC; 83735-TC; 83880; 84100-TC; 84484-TC; 85025-TC; 87081-TC; 94799-TC; 99082-TC; A6403; C9113; C9803; G0378; J1100; J1650; J2920; J2930; J3475

== ENCOUNTER 2023-07-31 16:53 | Inpatient (IN) | payer MEDICARE, OTHER ==
[~2023-07-31] VITALS: Ht 167.6 cm; Wt 111.1 kg
[~2023-07-31 16:53] MED LIST changes: -AMIN30LI2 PO; -CITA20TA16 PO; -CRAN3875 PO; +CYCL30DR EACHEYE; -DEXA6TAB6 PO; +DOCU-141 PO; +ESCI10TA PO; +EYEL1KIT TP; -FURO-144 PO; +GLUC1KIT IM; -GUAI100S11 PO; -NITR0.4T48 SL; -PANT40SU2 PO; +POLY15DR40 EACHEYE
[2023-07-31 17:51] LABS: BASOPHILS % (AUTO) 0.6 % (0.0-2.0); EOSINOPHILS # (AUTO) 0.1 K/uL (0.0-0.7); EOSINOPHILS % (AUTO) 1.9 % (0.0-6.0); HEMATOCRIT 31 % (33-45); HEMOGLOBIN 9.4 g/dL (11.5-14.8); LYMPHOCYTES % (AUTO) 13.9 % (20.0-44.0); MEAN CORPUSCULAR HEMOGLOBIN 22 PG (26.0-33.0); MEAN CORPUSCULAR HGB CONC 30 g/dl (31.0-36.0); MEAN CORPUSCULAR VOLUME 74 fL (82-100); MONOCYTES # (AUTO) 0.5 K/uL (0.1-1.30); MONOCYTES % (AUTO) 7.3 % (2.0-12.0); NEUTROPHILS # (AUTO) 5.8 K/uL (1.8-8.9); NEUTROPHILS % (AUTO) 76.3 % (43.0-81.0); PLATELET COUNT (AUTO) 308 K/uL (150-450); RED BLOOD CELL COUNT(AUTO) 4.21 MIL/uL (4.0-5.2); RED CELL DISTRIBUTION WIDTH 17.6 % (11.5-15.0); WHITE BLOOD COUNT (AUTO) 7.6 K/uL (4.3-11.0)
[2023-07-31 18:02] LABS: LACTIC ACID 0.9 mmol/L (0.4-2.0)
[2023-07-31 18:03] LABS: INR 1.05 (0.91-1.10); PARTIAL THROMBOPLASTIN TIME 27.2 SEC (24.3-34.3); PROTHROMBIN TIME 11.1 SECS (9.2-11.1)
[2023-07-31 18:08] LABS: ALANINE AMINOTRANSFERASE 31 U/L (12-78); ALBUMIN 2.9 g/dL (3.4-5.0); ALKALINE PHOSPHATASE 90 U/L (46-116); ASPARTATE AMINOTRANSFERASE 19 U/L (15-37); BILIRUBIN,DIRECT 0.1 mg/dL (0.0-0.2); BILIRUBIN,TOTAL 0.3 mg/dL (0.2-1.0); CALCIUM, SERUM 8.8 mg/dL (8.5-10.1); CHLORIDE 95 mmol/L (98-107); CREATININE 0.5 mg/dL (0.6-1.3); GLUCOSE 121 mg/dL (74-106); POTASSIUM 4.4 mmol/L (3.5-5.1); SODIUM SERUM 140 mmol/L (136-145); TOTAL PROTEIN, SERUM 8.1 g/dL (6.4-8.2); UREA NITROGEN, BLOOD 22 mg/dL (7-18)
[2023-07-31 18:18] LABS: CARBON DIOXIDE 48 mmol/L (21-32)
[2023-07-31] MEDS: IV NS 0.9% 500 ML BAG IV ONE (19:25)
[2023-07-31] MEDS ORDERED: ONDA-97 PO (20:24)
[2023-07-31] MEDS ORDERED: INSU100I47 SQ (20:24)
[2023-07-31] MEDS ORDERED: CALC-494 PO (20:24)
[2023-07-31] MEDS ORDERED: FURO-145 PO (20:24)
[2023-07-31] MEDS ORDERED: BENZ200C53 PO (20:24)
[2023-07-31] MEDS ORDERED: ENOX40DI SQ (20:24)
[2023-07-31] MEDS ORDERED: POTA-88 PO (20:24)
[2023-07-31] MEDS ORDERED: IPRA3AMP23 IH (20:24)
[2023-07-31] MEDS ORDERED: CHOL100043 PO (20:24)
[2023-07-31] MEDS ORDERED: MULT-213 PO (20:24)
[2023-07-31 20:47] LABS: APPEARANCE,URINE Slightly Cloudy (CLEAR); BILIRUBIN,URINE SMALL (NEGATIVE); BLOOD, URINE Moderate Ery/uL (NEGATIVE); COLOR,URINE YELLOW (YELLOW); KETONES,URINE Negative (NEGATIVE); LEUKOCYTE ESTERASE ,URINE Large (NEGATIVE); NITRITE, URINE Negative (NEGATIVE); PH,URINE 5.5 (5.0-8.0); PROTEIN,URINE Trace mg/dl (NEGATIVE); UGLUCOSE Negative (NEGATIVE)
[2023-07-31 21:05] LABS: ADD URINE CULTURE YES; BACTERIA,URINE 4+ /HPF (None Seen); WBC,URINE 21-50 /HPF (0-3); YEAST,URINE Moderate /HPF (None Seen)
[2023-07-31 21:06] LABS: MUCUS,URINE Few /LPF (None Seen)
[2023-07-31] MEDS ORDERED: IPRATROPIUM NEB FS 0.5 MG/2.5 ML AMPUL.NEB ONE ×2 (21:23→22:20)
[2023-07-31] MEDS ORDERED: ALBUTEROL FS 2.5 MG/3 ML VIAL.NEB ONE ×2 (21:23→22:20)
[2023-07-31] MEDS ORDERED: HYDROCODONE/APAP 5/325MG TABLET PO PRN (21:30)
[2023-07-31] MEDS ORDERED: ONDANSETRON HCL/PF 4 MG/2 ML VIAL IVP PRN (21:30)
[2023-07-31] MEDS ORDERED: Z GUARD REMEDY 4 OZ OINT TP PRN (21:30)
[2023-07-31] MEDS ORDERED: MAG HYDROX/AL HYDROX/SIMETH 30 ML UDC PO PRN (21:30)
[2023-07-31] MEDS ORDERED: ALBUTEROL FS 2.5 MG/0.5 ML VIAL.NEB NEB PRN (21:30)
[2023-07-31] MEDS ORDERED: ZOLPIDEM TARTRATE 5 MG TABLET PO PRN (21:30)
[2023-07-31] MEDS ORDERED: MAGNESIUM HYDROXIDE 30 ML UDC PO PRN (21:30)
[2023-07-31] MEDS ORDERED: IPRATROPIUM NEB FS 0.5 MG/2.5 ML AMPUL.NEB NEB PRN (21:30)
[2023-07-31] MEDS: IPRATROPIUM NEB FS 0.5 MG/2.5 ML AMPUL.NEB NEB ONE ×2 (21:51→22:24)
[2023-07-31] MEDS: ALBUTEROL FS 2.5 MG/3 ML VIAL.NEB NEB ONE ×2 (21:51)
[2023-07-31] MEDS: methylPREDNISolone SOD SUCC 125 MG/2ML VIAL IV ONE (22:00)
[2023-07-31] MEDS ORDERED: methylPREDNISolone SOD SUCC 125 MG/2ML VIAL ONE (22:06)
[2023-07-31 22:10] LABS: THYROID STIMULATING HORMONE 33.36 uIU/mL (0.358-3.74)
[2023-07-31] MEDS ORDERED: ENOXAPARIN SODIUM 40 MG/0.4 ML DISP.SYRIN SQ ONE (22:12)
[2023-07-31] MEDS: ENOXAPARIN SODIUM 40 MG/0.4 ML DISP.SYRIN SQ SCH (22:14)
[2023-07-31] MEDS ORDERED: LEVOFLOXACIN 750 MG /D5W 150ML 150 ML IV ONE (22:17)
[2023-07-31] MEDS: LEVOFLOXACIN 750 MG /D5W 150ML 750 MG in PREMIX 1 EA IV SCH (22:22)
[2023-07-31] MEDS: ALBUTEROL FS 2.5 MG/3 ML VIAL.NEB CONTNEB ONE (22:24)
[2023-07-31 23:45] VITALS: BP 159/130; O2SAT 98
[2023-08-01] VITALS (40 sets, daily range): BP systolic 89–202; BP diastolic 51–163; TEMP 98–100.6; O2SAT 88–100
[2023-08-01] MEDS ORDERED: DEXTROSE 50%-WATER 50 ML DISP.SYRIN IV PRN ×2 (00:30→18:00)
[2023-08-01] MEDS: FUROSEMIDE 40 MG/4 ML VIAL IV SCH (00:55)
[2023-08-01 01:35] LABS: ABG OXYGEN SATURATION 92.1 % (92.0-98.5); ABG PCO2 109.5 mmHg (35.0-45.0); ABG PH 7.293 (7.350-7.450); ABG PO2 65.6 mmHg (75.0-100.0); ABG TOTAL HEMOGLOBIN 10.5 G/dL (12.0-16.0); COHb 0.6 % (0.5-1.5); MetHb 0.2 % (0.0-1.5); O2Hb 91.4 % (94.0-97.0); SITE, ABG Left Radial; VENT MODE, BG Bipap 25/5 RR30 28%
[2023-08-01 01:35] LABS: ABG BASE EXCESS 20.4 mmol/L; ABG OXYGEN SATURATION 99.2 % (92.0-98.5); ABG PCO2 158.3 mmHg (35.0-45.0); ABG PH 7.153 (7.350-7.450); ABG PO2 221.7 mmHg (75.0-100.0); ABG TOTAL HEMOGLOBIN 10.5 G/dL (12.0-16.0); COHb 0.5 % (0.5-1.5); MetHb 0.5 % (0.0-1.5); O2Hb 98.2 % (94.0-97.0); SITE, ABG Right Radial; VENT MODE, BG Simple Mask
[2023-08-01] MEDS: CEFTRIAXONE 1 G in IV D5W 50 ML IV SCH (02:07)
[2023-08-01] MEDS: CEFTRIAXONE 1GM BAG (ER ONLY) 50 ML IV ONE (02:09)
[2023-08-01 05:04] LABS: BASOPHILS # (AUTO) 0.1 K/uL (0.0-0.2); BASOPHILS % (AUTO) 1.7 % (0.0-2.0); EOSINOPHILS % (AUTO) 0.1 % (0.0-6.0); HEMATOCRIT 31 % (33-45); HEMOGLOBIN 9.1 g/dL (11.5-14.8); LYMPHOCYTES # (AUTO) 0.3 K/uL (0.8-4.8); LYMPHOCYTES % (AUTO) 3.4 % (20.0-44.0); MEAN CORPUSCULAR HEMOGLOBIN 22 PG (26.0-33.0); MEAN CORPUSCULAR HGB CONC 30 g/dl (31.0-36.0); MEAN CORPUSCULAR VOLUME 75 fL (82-100); MONOCYTES # (AUTO) 0.1 K/uL (0.1-1.30); MONOCYTES % (AUTO) 1.1 % (2.0-12.0); NEUTROPHILS # (AUTO) 7.7 K/uL (1.8-8.9); NEUTROPHILS % (AUTO) 93.7 % (43.0-81.0); PLATELET COUNT (AUTO) 243 K/uL (150-450); RED BLOOD CELL COUNT(AUTO) 4.11 MIL/uL (4.0-5.2); RED CELL DISTRIBUTION WIDTH 17.3 % (11.5-15.0); WHITE BLOOD COUNT (AUTO) 8.2 K/uL (4.3-11.0)
[2023-08-01 05:28] LABS: CALCIUM, SERUM 8.6 mg/dL (8.5-10.1); CHLORIDE 93 mmol/L (98-107); CREATININE 0.4 mg/dL (0.6-1.3); GLUCOSE 146 mg/dL (74-106); MAGNESIUM 1.9 mg/dL (1.8-2.4); PHOSPHORUS 5.1 mg/dL (2.5-4.9); POTASSIUM 4.3 mmol/L (3.5-5.1); SODIUM SERUM 139 mmol/L (136-145); UREA NITROGEN, BLOOD 24 mg/dL (7-18)
[2023-08-01 05:36] LABS: CARBON DIOXIDE 44 mmol/L (21-32)
[2023-08-01] MEDS: BLOOD SUGAR DIAGNOSTIC 1 EACH STRIP IN SCH ×2 (05:47→18:35)
[2023-08-01] MEDS: INSULIN REGULAR, HUMAN 100 UNIT/ML 3 ML VIAL SQ PRN ×2 (05:50→18:34)
[2023-08-01] MEDS: methylPREDNISolone SOD SUCC 40 MG/ML VIAL IV SCH (06:29)
[2023-08-01] MEDS ORDERED: FUROSEMIDE 40 MG/4 ML VIAL IV SCH (09:00)
[2023-08-01] MEDS: LEVOTHYROXINE INJ 100 MCG VIAL IV SCH (09:06)
[2023-08-01] MEDS: PANTOPRAZOLE 40 MG TABLET.DR PO SCH (09:12)
[2023-08-01 10:51] LABS: ABG OXYGEN SATURATION 92.9 % (92.0-98.5); ABG PCO2 64.6 mmHg (35.0-45.0); ABG PH 7.475 (7.350-7.450); ABG TOTAL HEMOGLOBIN 10.1 G/dL (12.0-16.0); AaDO2 33.2 mmHg; COHb 0.6 % (0.5-1.5); O2Hb 92.3 % (94.0-97.0); SITE, ABG Right Radial; VENT MODE, BG 1LNC
[2023-08-01] MEDS: ACETAMINOPHEN 325 MG TABLET PO PRN (12:56)
[2023-08-01] MEDS: ALBUTEROL FS 2.5 MG/0.5 ML VIAL.NEB NEB SCH (15:30)
[2023-08-01] MEDS: IPRATROPIUM NEB FS 0.5 MG/2.5 ML AMPUL.NEB NEB SCH (15:30)
[2023-08-02] VITALS (29 sets, daily range): BP systolic 91–111; BP diastolic 47–93; TEMP 97.8–99; O2SAT 60–100
[2023-08-02 04:39] LABS: BASOPHILS % (AUTO) 0.5 % (0.0-2.0); HEMATOCRIT 29 % (33-45); LYMPHOCYTES # (AUTO) 0.5 K/uL (0.8-4.8); LYMPHOCYTES % (AUTO) 8.7 % (20.0-44.0); MEAN CORPUSCULAR HEMOGLOBIN 22 PG (26.0-33.0); MEAN CORPUSCULAR HGB CONC 31 g/dl (31.0-36.0); MEAN CORPUSCULAR VOLUME 72 fL (82-100); MONOCYTES # (AUTO) 0.4 K/uL (0.1-1.30); MONOCYTES % (AUTO) 7.1 % (2.0-12.0); NEUTROPHILS # (AUTO) 4.8 K/uL (1.8-8.9); NEUTROPHILS % (AUTO) 83.7 % (43.0-81.0); PLATELET COUNT (AUTO) 261 K/uL (150-450); RED BLOOD CELL COUNT(AUTO) 4.04 MIL/uL (4.0-5.2); RED CELL DISTRIBUTION WIDTH 17.9 % (11.5-15.0); WHITE BLOOD COUNT (AUTO) 5.7 K/uL (4.3-11.0)
[2023-08-02 04:51] LABS: CALCIUM, SERUM 8.9 mg/dL (8.5-10.1); CREATININE 0.6 mg/dL (0.6-1.3); MAGNESIUM 1.9 mg/dL (1.8-2.4); PHOSPHORUS 2.8 mg/dL (2.5-4.9); POTASSIUM 3.8 mmol/L (3.5-5.1)
[2023-08-03] VITALS (29 sets, daily range): BP systolic 93–157; BP diastolic 54–142; TEMP 98.6–98.8; O2SAT 85–100
[2023-08-04] VITALS (25 sets, daily range): BP systolic 90–126; BP diastolic 52–103; TEMP 98.6–99; O2SAT 90–100
[2023-08-04 04:34] LABS: BASOPHILS % (AUTO) 0.5 % (0.0-2.0); HEMATOCRIT 27 % (33-45); HEMOGLOBIN 8.6 g/dL (11.5-14.8); LYMPHOCYTES # (AUTO) 0.5 K/uL (0.8-4.8); LYMPHOCYTES % (AUTO) 11.3 % (20.0-44.0); MEAN CORPUSCULAR HEMOGLOBIN 22 PG (26.0-33.0); MEAN CORPUSCULAR HGB CONC 32 g/dl (31.0-36.0); MEAN CORPUSCULAR VOLUME 71 fL (82-100); MONOCYTES # (AUTO) 0.6 K/uL (0.1-1.30); NEUTROPHILS # (AUTO) 3.1 K/uL (1.8-8.9); NEUTROPHILS % (AUTO) 74.2 % (43.0-81.0); PLATELET COUNT (AUTO) 222 K/uL (150-450); RED BLOOD CELL COUNT(AUTO) 3.82 MIL/uL (4.0-5.2); RED CELL DISTRIBUTION WIDTH 18.1 % (11.5-15.0); WHITE BLOOD COUNT (AUTO) 4.2 K/uL (4.3-11.0)
[2023-08-04 04:40] LABS: CALCIUM, SERUM 9.2 mg/dL (8.5-10.1); CREATININE 0.6 mg/dL (0.6-1.3); POTASSIUM 3.3 mmol/L (3.5-5.1)
[2023-08-04 04:44] LABS: MAGNESIUM 1.9 mg/dL (1.8-2.4); PHOSPHORUS 2.5 mg/dL (2.5-4.9)
[2023-08-04] MEDS ORDERED: FERROUS SULFATE (325 MG) 325 MG/TAB TABLET PO SCH (09:00)
[2023-08-04] MEDS: CLOTRIMAZOLE 1% 15 GM TUBE TP SCH (09:00)
[2023-08-04] MEDS: methylPREDNISolone SOD SUCC 40 MG/ML VIAL IV SCH (10:53)
[2023-08-04] MEDS: FERROUS SULFATE (325 MG) 325 MG/TAB TABLET PO SCH (10:54)
[2023-08-04] MEDS: ESCITALOPRAM OXALATE (10 MG) 10 MG TABLET PO SCH (10:54)
[2023-08-04] MEDS: POTASSIUM CHLORIDE 20 MEQ POWDER PACKET PO SCH (11:05)
[2023-08-05] VITALS: BP 118/70; TEMP 98
[2023-08-05 04:00] VITALS: BP 120/65; TEMP 98; O2SAT 96
[2023-08-05 07:28] LABS: BASOPHILS % (AUTO) 0.1 % (0.0-2.0); EOSINOPHILS % (AUTO) 0.1 % (0.0-6.0); HEMATOCRIT 27 % (33-45); HEMOGLOBIN 8.6 g/dL (11.5-14.8); LYMPHOCYTES % (AUTO) 17.8 % (20.0-44.0); MEAN CORPUSCULAR HEMOGLOBIN 22 PG (26.0-33.0); MEAN CORPUSCULAR HGB CONC 31 g/dl (31.0-36.0); MEAN CORPUSCULAR VOLUME 71 fL (82-100); MONOCYTES # (AUTO) 0.8 K/uL (0.1-1.30); MONOCYTES % (AUTO) 13.7 % (2.0-12.0); NEUTROPHILS # (AUTO) 3.9 K/uL (1.8-8.9); NEUTROPHILS % (AUTO) 68.3 % (43.0-81.0); PLATELET COUNT (AUTO) 218 K/uL (150-450); RED BLOOD CELL COUNT(AUTO) 3.88 MIL/uL (4.0-5.2); RED CELL DISTRIBUTION WIDTH 17.6 % (11.5-15.0); WHITE BLOOD COUNT (AUTO) 5.7 K/uL (4.3-11.0)
[2023-08-05 07:31] LABS: CALCIUM, SERUM 8.6 mg/dL (8.5-10.1); CARBON DIOXIDE 38 mmol/L (21-32); CHLORIDE 94 mmol/L (98-107); CREATININE 0.3 mg/dL (0.6-1.3); GLUCOSE 108 mg/dL (74-106); POTASSIUM 3.4 mmol/L (3.5-5.1); SODIUM SERUM 134 mmol/L (136-145); UREA NITROGEN, BLOOD 24 mg/dL (7-18)
[2023-08-05 08:00] VITALS: BP 94/46; TEMP 98.4; O2SAT 96
[2023-08-05] MEDS: LEVOTHYROXINE SODIUM 50 MCG TABLET PO SCH (08:53)
[2023-08-05] MEDS: POTASSIUM CHLORIDE 20 MEQ TAB.PRT.SR PO SCH (10:12)
[2023-08-05 12:01] VITALS: BP 98/58; TEMP 98.8; O2SAT 94
[2023-08-05 16:00] VITALS: BP 92/41; TEMP 98.8; O2SAT 92
[2023-08-05 20:00] VITALS: BP 92/64; TEMP 98.4; O2SAT 96
[2023-08-05] MEDS: LEVOFLOXACIN (250MG) 250 MG TABLET PO SCH (21:19)
[2023-08-06] VITALS: BP 102/72; TEMP 98.2; O2SAT 96
[2023-08-06 04:00] VITALS: BP 94/56; TEMP 98.2; O2SAT 96
[2023-08-06 06:53] LABS: EOSINOPHILS # (AUTO) 0.1 K/uL (0.0-0.7); EOSINOPHILS % (AUTO) 0.8 % (0.0-6.0); HEMATOCRIT 27 % (33-45); HEMOGLOBIN 8.5 g/dL (11.5-14.8); LYMPHOCYTES # (AUTO) 1.7 K/uL (0.8-4.8); LYMPHOCYTES % (AUTO) 19.7 % (20.0-44.0); MEAN CORPUSCULAR HEMOGLOBIN 22 PG (26.0-33.0); MEAN CORPUSCULAR HGB CONC 31 g/dl (31.0-36.0); MEAN CORPUSCULAR VOLUME 71 fL (82-100); MONOCYTES # (AUTO) 1.1 K/uL (0.1-1.30); MONOCYTES % (AUTO) 13.4 % (2.0-12.0); NEUTROPHILS # (AUTO) 5.5 K/uL (1.8-8.9); NEUTROPHILS % (AUTO) 66.1 % (43.0-81.0); PLATELET COUNT (AUTO) 228 K/uL (150-450); RED BLOOD CELL COUNT(AUTO) 3.87 MIL/uL (4.0-5.2); RED CELL DISTRIBUTION WIDTH 17.5 % (11.5-15.0); WHITE BLOOD COUNT (AUTO) 8.4 K/uL (4.3-11.0)
[2023-08-06 06:59] LABS: CALCIUM, SERUM 8.3 mg/dL (8.5-10.1); CARBON DIOXIDE 36 mmol/L (21-32); CHLORIDE 95 mmol/L (98-107); CREATININE 0.4 mg/dL (0.6-1.3); GLUCOSE 91 mg/dL (74-106); POTASSIUM 3.5 mmol/L (3.5-5.1); SODIUM SERUM 134 mmol/L (136-145); UREA NITROGEN, BLOOD 24 mg/dL (7-18)
[2023-08-06 08:00] VITALS: BP 94/56; TEMP 99.9; O2SAT 96
[2023-08-06 12:00] VITALS: BP 105/89; TEMP 98.5; O2SAT 96
[2023-08-06 16:00] VITALS: BP 105/89; TEMP 98.7; O2SAT 96
[2023-08-07] MEDS ORDERED: predniSONE 20 MG TABLET PO SCH (09:00)
== END 2023-08-06 16:45 | DRG 291 ==
LOC: ER 17:04 → TELE1 19:24 → ICU 21:55 → TELE1 08-04 08:43
PROVIDERS: ATTEND Internal Medicine
PROC: 5A09557 Assistance with Respiratory Ventilation, Greater than 96 Consecutive Hours, Continuous Positive Airway Pressure (ICD-10-PCS; principal; 2023-07-31)
DX: I11.0 Hypertensive heart disease with heart failure (principal); G93.41 Metabolic encephalopathy; I50.33 Acute on chronic diastolic (congestive) heart failure; J96.02 Acute respiratory failure with hypercapnia; J96.21 Acute and chronic respiratory failure with hypoxia; J96.22 Acute and chronic respiratory failure with hypercapnia; J44.1 Chronic obstructive pulmonary disease with (acute) exacerbation; N39.0 Urinary tract infection, site not specified; E66.2 Morbid (severe) obesity with alveolar hypoventilation; E87.20 Acidosis, unspecified; I42.9 Cardiomyopathy, unspecified; Z66 Do not resuscitate; Z20.822 Contact with and (suspected) exposure to COVID-19; E78.5 Hyperlipidemia, unspecified; Z87.19 Personal history of other diseases of the digestive system; K57.90 Diverticulosis of intestine, part unspecified, without perforation or abscess without bleeding; Z87.11 Personal history of peptic ulcer disease; K21.00 Gastro-esophageal reflux disease with esophagitis, without bleeding; K58.9 Irritable bowel syndrome, unspecified; E11.9 Type 2 diabetes mellitus without complications; Z98.890 Other specified postprocedural states; M19.90 Unspecified osteoarthritis, unspecified site; F41.9 Anxiety disorder, unspecified; D50.9 Iron deficiency anemia, unspecified; Z91.041 Radiographic dye allergy status; Z91.013 Allergy to seafood; Z91.048 Other nonmedicinal substance allergy status; Z91.018 Allergy to other foods; Z79.01 Long term (current) use of anticoagulants; Z79.4 Long term (current) use of insulin; Z79.51 Long term (current) use of inhaled steroids; Z79.899 Other long term (current) drug therapy; G40.909 Epilepsy, unspecified, not intractable, without status epilepticus; E88.09 Other disorders of plasma-protein metabolism, not elsewhere classified; E03.9 Hypothyroidism, unspecified; F32.A Depression, unspecified; E86.1 Hypovolemia; Z87.891 Personal history of nicotine dependence; Z96.642 Presence of left artificial hip joint
CPT/HCPCS: 36415; 36600; 71045-TC; 80048-TC; 80061-TC; 80076-TC; 81001; 82803-TC; 82962-TC; 83605-TC; 83735-TC; 84100-TC; 84443-TC; 84484-TC; 85025-TC; 85730-TC; 87040-TC; 87086-TC; 92526; 92611-TC; 93307-TC; 94799-TC; 97110-TC; 97112-TC; 97530-TC; 99082-TC; A4216; A4223; G0378; J0696; J1650; J1815; J1940; J1956; J2920; J2930; J7050; J7060

== ENCOUNTER 2024-06-29 21:03 | Inpatient (IN) | payer MEDICARE, OTHER ==
[~2024-06-29] VITALS: Ht 170.2 cm; Wt 95.3 kg
[~2024-06-29 21:03] MED LIST changes: +BENZ200C53 PO; -BUDE10.2 IH; +CALC-494 PO; -CALC1TAB30 PO; +CHOL100043 PO; -DOCU-141 PO; +ENOX40DI SQ; -EYEL1KIT TP; +FURO-145 PO; +INSU100I47 SQ; +IPRA3AMP23 IH; -IPRA4AER IH; -LEVO50TA8 PO; +MULT-213 PO; +ONDA-97 PO; +POTA-88 PO
[2024-06-29] MEDS ORDERED: CEFEPIME 1 GM VIAL ONE (21:43)
[2024-06-29 21:45] LABS: BASOPHILS # (AUTO) 0.1 K/uL (0.0-0.2); BASOPHILS % (AUTO) 0.7 % (0.0-2.0); EOSINOPHILS # (AUTO) 0.1 K/uL (0.0-0.7); EOSINOPHILS % (AUTO) 1.3 % (0.0-6.0); HEMATOCRIT 33 % (33-45); LYMPHOCYTES # (AUTO) 1.2 K/uL (0.8-4.8); LYMPHOCYTES % (AUTO) 13.7 % (20.0-44.0); MEAN CORPUSCULAR HEMOGLOBIN 22 PG (26.0-33.0); MEAN CORPUSCULAR HGB CONC 30 g/dl (31.0-36.0); MEAN CORPUSCULAR VOLUME 75 fL (82-100); MONOCYTES # (AUTO) 0.9 K/uL (0.1-1.30); MONOCYTES % (AUTO) 10.5 % (2.0-12.0); NEUTROPHILS # (AUTO) 6.3 K/uL (1.8-8.9); NEUTROPHILS % (AUTO) 73.8 % (43.0-81.0); PLATELET COUNT (AUTO) 235 K/uL (150-450); RED BLOOD CELL COUNT(AUTO) 4.46 MIL/uL (4.0-5.2); RED CELL DISTRIBUTION WIDTH 17.5 % (11.5-15.0); WHITE BLOOD COUNT (AUTO) 8.5 K/uL (4.3-11.0)
[2024-06-29] MEDS: IV NS 0.9% 1,000 ML BAG IV ONE (21:51)
[2024-06-29] MEDS: CEFEPIME 1 GM in IV D5W 50 ML IV ONE (21:52)
[2024-06-29 21:58] LABS: INR 1.05 (0.91-1.10); PARTIAL THROMBOPLASTIN TIME 27.9 SEC (24.3-34.3); PROTHROMBIN TIME 11.1 SECS (9.2-11.1)
[2024-06-29 21:59] LABS: ALANINE AMINOTRANSFERASE 31 U/L (12-78); ALBUMIN 3.1 g/dL (3.4-5.0); ALKALINE PHOSPHATASE 101 U/L (46-116); ASPARTATE AMINOTRANSFERASE 19 U/L (15-37); BILIRUBIN,DIRECT 0.1 mg/dL (0.0-0.2); BILIRUBIN,TOTAL 0.3 mg/dL (0.2-1.0); CALCIUM, SERUM 8.3 mg/dL (8.5-10.1); CHLORIDE 95 mmol/L (98-107); CREATININE 0.4 mg/dL (0.6-1.3); GLUCOSE 116 mg/dL (74-106); POTASSIUM 4.5 mmol/L (3.5-5.1); SODIUM SERUM 138 mmol/L (136-145); TOTAL PROTEIN, SERUM 7.5 g/dL (6.4-8.2); UREA NITROGEN, BLOOD 21 mg/dL (7-18)
[2024-06-29 22:01] LABS: LACTIC ACID 0.4 mmol/L (0.4-2.0)
[2024-06-29 22:03] LABS: CARBON DIOXIDE 49 mmol/L (21-32)
[2024-06-29] MEDS ORDERED: VANCOMYCIN 1 GM /D5W 250 ML PB IV ONE (22:07)
[2024-06-29] MEDS: VANCOMYCIN 1 GM in IV D5W 250 ML IV ONE (22:08)
[2024-06-29 22:13] LABS: ABG BASE EXCESS 20.7 mmol/L (-2.0-3.0); ABG OXYGEN SATURATION 98.5 % (94.0-98.0); ABG PCO2 177.4 mmHg (32.0-45.0); ABG PH 7.115 (7.350-7.450); ABG PO2 152.5 mmHg (83.0-108.0); ABG TOTAL HEMOGLOBIN 10.8 G/dL (12.0-16.0); COHb 0.3 % (0.5-1.5); MetHb 0.3 % (0.0-1.5); O2Hb 97.9 % (94.0-97.0); SITE, ABG LEFT RADIAL
[2024-06-29 22:27] LABS: THYROID STIMULATING HORMONE 32.73 uIU/mL (0.358-3.74)
[2024-06-30] VITALS (41 sets, daily range): BP systolic 89–170; BP diastolic 46–107; TEMP 97.6–100; O2SAT 50–100
[2024-06-30 00:40] LABS: ABG BASE EXCESS 13.5 mmol/L (-2.0-3.0); ABG OXYGEN SATURATION 97.5 % (94.0-98.0); ABG PCO2 128.4 mmHg (32.0-45.0); ABG PO2 111.2 mmHg (83.0-108.0); ABG TOTAL HEMOGLOBIN 10.3 G/dL (12.0-16.0); COHb 0.3 % (0.5-1.5); MetHb 0.5 % (0.0-1.5); O2Hb 96.7 % (94.0-97.0); SITE, ABG LEFT RADIAL
[2024-06-30] MEDS ORDERED: DEXTROSE 50%-WATER 50 ML DISP.SYRIN IV PRN (01:00)
[2024-06-30] MEDS ORDERED: Z GUARD REMEDY 4 OZ OINT TP PRN (01:00)
[2024-06-30] MEDS ORDERED: MAGNESIUM HYDROXIDE 30 ML UDC PO PRN ×2 (01:00)
[2024-06-30] MEDS ORDERED: MAG HYDROX/AL HYDROX/SIMETH 30 ML UDC PO PRN (01:00)
[2024-06-30] MEDS ORDERED: IPRATROPIUM NEB FS 0.5 MG/2.5 ML AMPUL.NEB NEB PRN (02:00)
[2024-06-30] MEDS ORDERED: ALBUTEROL FS 2.5 MG/3 ML VIAL.NEB NEB PRN ×2 (02:00→10:30)
[2024-06-30] MEDS ORDERED: ONDANSETRON HCL/PF 4 MG/2 ML VIAL ONE (02:52)
[2024-06-30] MEDS: ONDANSETRON HCL/PF 4 MG/2 ML VIAL IVP PRN (02:53)
[2024-06-30] MEDS ORDERED: CEFEPIME 1 GM VIAL ONE (05:20)
[2024-06-30] MEDS: CEFEPIME 1 GM in IV D5W 50 ML IV SCH (05:35)
[2024-06-30] MEDS: IV NS 0.9% 250 ML IV PRN (05:36)
[2024-06-30] MEDS: methylPREDNISolone SOD SUCC 40 MG/ML VIAL IV SCH (05:37)
[2024-06-30 06:03] LABS: ABG OXYGEN SATURATION 99.5 % (94.0-98.0); ABG PCO2 181.3 mmHg (32.0-45.0); ABG PH 7.047 (7.350-7.450); ABG PO2 237.4 mmHg (83.0-108.0); ABG TOTAL HEMOGLOBIN 11.2 G/dL (12.0-16.0); COHb 1.1 % (0.5-1.5); MetHb 0.3 % (0.0-1.5); O2Hb 98.1 % (94.0-97.0); SITE, ABG LEFT RADIAL
[2024-06-30] MEDS: LEVOTHYROXINE SODIUM 75 MCG TABLET PO SCH ×2 (07:30→09:00)
[2024-06-30] MEDS ORDERED: BLOOD SUGAR DIAGNOSTIC 1 EACH STRIP IN SCH (07:30)
[2024-06-30] MEDS: PROPOFOL 100 ML IV PRN (08:00)
[2024-06-30] MEDS ORDERED: FERROUS SULFATE (325 MG) 325 MG/TAB TABLET PO SCH (09:00)
[2024-06-30] MEDS ORDERED: HYDR28OI2 TP (09:00)
[2024-06-30] MEDS ORDERED: PANT40TA2 PO (09:00)
[2024-06-30] MEDS ORDERED: DHA PO SCH (09:00)
[2024-06-30] MEDS ORDERED: OMEGA PO SCH (09:00)
[2024-06-30] MEDS ORDERED: ZINC50TA69 PO (09:00)
[2024-06-30] MEDS ORDERED: CALCIUM CARBONATE 500 MG TAB.CHEW PO SCH (09:00)
[2024-06-30] MEDS ORDERED: [UNRECOGNIZED DRUG - OTHER] PO SCH (09:00)
[2024-06-30] MEDS ORDERED: [UNRECOGNIZED DRUG - OTHER] EACHEYE (09:00)
[2024-06-30] MEDS ORDERED: ASCORBIC ACID 500 MG TABLET PO SCH (09:00)
[2024-06-30] MEDS ORDERED: CHOLECALCIFEROL 1,000 UNIT TABLET (VIT D3) PO SCH (09:00)
[2024-06-30] MEDS ORDERED: PANTOPRAZOLE 40 MG VIAL IV SCH (09:00)
[2024-06-30] MEDS ORDERED: AMIN30LI66 PO (09:00)
[2024-06-30] MEDS ORDERED: DOCUSATE SODIUM 100 MG CAPSULE PO SCH ×2 (09:00)
[2024-06-30] MEDS ORDERED: FISH OIL PO SCH (09:00)
[2024-06-30] MEDS ORDERED: EPA PO SCH (09:00)
[2024-06-30] MEDS ORDERED: MULTIVIT W/MINERALS 1 TAB TABLET PO SCH (09:00)
[2024-06-30] MEDS ORDERED: LEVA0.6320 IH (09:00)
[2024-06-30] MEDS ORDERED: DIPH25TA25 PO (09:00)
[2024-06-30 09:07] LABS: ABG BASE EXCESS 15.8 mmol/L (-2.0-3.0); ABG OXYGEN SATURATION 95.4 % (94.0-98.0); ABG PCO2 39.7 mmHg (32.0-45.0); ABG PH 7.606 (7.350-7.450); ABG PO2 52.4 mmHg (83.0-108.0); ABG TOTAL HEMOGLOBIN 10.9 G/dL (12.0-16.0); COHb 1.5 % (0.5-1.5); MetHb 0.3 % (0.0-1.5); O2Hb 93.7 % (94.0-97.0); PEEP,BG 5 cm H2O; SITE, ABG LEFT RADIAL; VT, ABG 500 mL
[2024-06-30] MEDS: PANTOPRAZOLE 40 MG VIAL IV SCH (09:11)
[2024-06-30] MEDS: VANCOMYCIN HCL 1.25 GM in IV D5W 250 ML IV SCH (09:11)
[2024-06-30] MEDS: ENOXAPARIN SODIUM 40 MG/0.4 ML DISP.SYRIN SQ SCH (09:12)
[2024-06-30] MEDS: ALBUTEROL HALF STRENGTH 1.25 MG/3 ML VIAL.NEB NEB SCH (11:31)
[2024-06-30] MEDS: IPRATROPIUM NEB FS 0.5 MG/2.5 ML AMPUL.NEB NEB SCH (11:32)
[2024-06-30] MEDS: BLOOD SUGAR DIAGNOSTIC 1 EACH STRIP IN SCH (12:22)
[2024-06-30 13:06] LABS: THYROID STIMULATING HORMONE 19.4 uIU/mL (0.358-3.74)
[2024-06-30] MEDS: POLYVINYL ALCOHOL 15 ML BOTTLE EACHEYE SCH (13:53)
[2024-06-30] MEDS ORDERED: ETOMIDATE 2 MG/ML VIAL IV ONE (16:43)
[2024-06-30] MEDS ORDERED: SUCCINYLCHOLINE CHLORIDE 20 MG/ML VIAL IV ONE (16:43)
[2024-06-30] MEDS: INSULIN REGULAR, HUMAN 100 UNIT/ML 3 ML VIAL SQ PRN (23:28)
[2024-07-01] VITALS (37 sets, daily range): BP systolic 117–146; BP diastolic 65–95; TEMP 98–100.5; O2SAT 93–99
[2024-07-01] MEDS: ACETAMINOPHEN 325 MG TABLET PO PRN (03:55)
[2024-07-01 04:39] LABS: BASOPHILS % (AUTO) 0.2 % (0.0-2.0); HEMATOCRIT 29 % (33-45); HEMOGLOBIN 9.2 g/dL (11.5-14.8); LYMPHOCYTES # (AUTO) 0.4 K/uL (0.8-4.8); LYMPHOCYTES % (AUTO) 5.3 % (20.0-44.0); MEAN CORPUSCULAR HEMOGLOBIN 22 PG (26.0-33.0); MEAN CORPUSCULAR HGB CONC 32 g/dl (31.0-36.0); MEAN CORPUSCULAR VOLUME 71 fL (82-100); MONOCYTES # (AUTO) 0.7 K/uL (0.1-1.30); MONOCYTES % (AUTO) 8.2 % (2.0-12.0); NEUTROPHILS % (AUTO) 86.3 % (43.0-81.0); PLATELET COUNT (AUTO) 213 K/uL (150-450); RED BLOOD CELL COUNT(AUTO) 4.14 MIL/uL (4.0-5.2); RED CELL DISTRIBUTION WIDTH 17.7 % (11.5-15.0); WHITE BLOOD COUNT (AUTO) 8.1 K/uL (4.3-11.0)
[2024-07-01 04:54] LABS: CALCIUM, SERUM 7.9 mg/dL (8.5-10.1); CREATININE 0.6 mg/dL (0.6-1.3); MAGNESIUM 1.8 mg/dL (1.8-2.4); PHOSPHORUS 1.8 mg/dL (2.5-4.9); POTASSIUM 3.8 mmol/L (3.5-5.1)
[2024-07-01] MEDS ORDERED: POTASSIUM PHOSPHATE MM 7.5 MMOL in IV NS 0.9% 100 ML IV SCH (06:00)
[2024-07-01] MEDS: POTASSIUM PHOSPHATE MM 7.5 MMOL in IV NS 0.9% 100 ML IV SCH (07:40)
[2024-07-01 07:56] LABS: ABG BASE EXCESS 11.6 mmol/L (-2.0-3.0); ABG OXYGEN SATURATION 97.4 % (94.0-98.0); ABG PCO2 36.3 mmHg (32.0-45.0); ABG PO2 81.7 mmHg (83.0-108.0); ABG TOTAL HEMOGLOBIN 10.2 G/dL (12.0-16.0); COHb 0.4 % (0.5-1.5); MetHb 0.3 % (0.0-1.5); O2Hb 96.7 % (94.0-97.0); PEEP,BG 5 cm H2O; SITE, ABG LEFT RADIAL; VT, ABG 475 mL
[2024-07-01] MEDS: VANCOMYCIN HCL 1.25 GM in IV D5W 250 ML IV SCH (11:45)
[2024-07-01] MEDS: Sodium Phosphate 15 MMOL in IV NS 0.9% 245 ML IV SCH (17:51)
[2024-07-02] VITALS (35 sets, daily range): BP systolic 117–157; BP diastolic 59–106; TEMP 98.2–100.1; O2SAT 94–100
[2024-07-02 05:54] LABS: BASOPHILS % (AUTO) 0.4 % (0.0-2.0); HEMATOCRIT 30 % (33-45); HEMOGLOBIN 9.8 g/dL (11.5-14.8); LYMPHOCYTES # (AUTO) 0.6 K/uL (0.8-4.8); LYMPHOCYTES % (AUTO) 6.8 % (20.0-44.0); MEAN CORPUSCULAR HEMOGLOBIN 23 PG (26.0-33.0); MEAN CORPUSCULAR HGB CONC 33 g/dl (31.0-36.0); MEAN CORPUSCULAR VOLUME 70 fL (82-100); MONOCYTES # (AUTO) 0.9 K/uL (0.1-1.30); MONOCYTES % (AUTO) 10.9 % (2.0-12.0); NEUTROPHILS # (AUTO) 6.9 K/uL (1.8-8.9); NEUTROPHILS % (AUTO) 81.9 % (43.0-81.0); PLATELET COUNT (AUTO) 233 K/uL (150-450); RED BLOOD CELL COUNT(AUTO) 4.28 MIL/uL (4.0-5.2); RED CELL DISTRIBUTION WIDTH 18.5 % (11.5-15.0); WHITE BLOOD COUNT (AUTO) 8.5 K/uL (4.3-11.0)
[2024-07-02 07:42] LABS: CALCIUM, SERUM 8.2 mg/dL (8.5-10.1); CARBON DIOXIDE 30 mmol/L (21-32); CHLORIDE 92 mmol/L (98-107); CREATININE 0.5 mg/dL (0.6-1.3); GLUCOSE 98 mg/dL (74-106); POTASSIUM 3.9 mmol/L (3.5-5.1); SODIUM SERUM 132 mmol/L (136-145); UREA NITROGEN, BLOOD 21 mg/dL (7-18)
[2024-07-02 09:25] LABS: ABG BASE EXCESS 5.4 mmol/L (-2.0-3.0); ABG OXYGEN SATURATION 97.2 % (94.0-98.0); ABG PCO2 36.9 mmHg (32.0-45.0); ABG PH 7.508 (7.350-7.450); ABG TOTAL HEMOGLOBIN 11.2 G/dL (12.0-16.0); COHb 0.3 % (0.5-1.5); MetHb 0.3 % (0.0-1.5); O2Hb 96.6 % (94.0-97.0); PEEP,BG 5 cm H2O; SITE, ABG LEFT RADIAL
[2024-07-02 11:41] LABS: ABG BASE EXCESS 3.7 mmol/L (-2.0-3.0); ABG OXYGEN SATURATION 96.1 % (94.0-98.0); ABG PCO2 48.4 mmHg (32.0-45.0); ABG PH 7.398 (7.350-7.450); ABG PO2 88.1 mmHg (83.0-108.0); ABG TOTAL HEMOGLOBIN 10.8 G/dL (12.0-16.0); COHb 0.5 % (0.5-1.5); MetHb 0.3 % (0.0-1.5); O2Hb 95.3 % (94.0-97.0); SITE, ABG RIGHT RADIAL
[2024-07-03] VITALS (30 sets, daily range): BP systolic 113–138; BP diastolic 57–81; TEMP 97.7–98.8; O2SAT 96–100
[2024-07-03] MEDS: VANCOMYCIN 1 GM in IV D5W 250 ML IV SCH (00:27)
[2024-07-03 05:17] LABS: BASOPHILS % (AUTO) 0.2 % (0.0-2.0); HEMATOCRIT 28 % (33-45); HEMOGLOBIN 9.1 g/dL (11.5-14.8); LYMPHOCYTES # (AUTO) 0.4 K/uL (0.8-4.8); LYMPHOCYTES % (AUTO) 5.4 % (20.0-44.0); MEAN CORPUSCULAR HEMOGLOBIN 23 PG (26.0-33.0); MEAN CORPUSCULAR HGB CONC 33 g/dl (31.0-36.0); MEAN CORPUSCULAR VOLUME 71 fL (82-100); MONOCYTES # (AUTO) 0.6 K/uL (0.1-1.30); MONOCYTES % (AUTO) 7.9 % (2.0-12.0); NEUTROPHILS # (AUTO) 6.1 K/uL (1.8-8.9); NEUTROPHILS % (AUTO) 86.5 % (43.0-81.0); PLATELET COUNT (AUTO) 196 K/uL (150-450); RED BLOOD CELL COUNT(AUTO) 3.94 MIL/uL (4.0-5.2); RED CELL DISTRIBUTION WIDTH 17.7 % (11.5-15.0)
[2024-07-03 05:31] LABS: CREATININE 0.4 mg/dL (0.6-1.3); POTASSIUM 3.3 mmol/L (3.5-5.1)
[2024-07-03] MEDS: POTASSIUM CHLORIDE 20 MEQ TAB.PRT.SR PO ONE (07:42)
[2024-07-04] VITALS (29 sets, daily range): BP systolic 87–136; BP diastolic 42–70; TEMP 98.1–98.9; O2SAT 92–100
[2024-07-04 06:02] LABS: HEMATOCRIT 29 % (33-45); HEMOGLOBIN 9.5 g/dL (11.5-14.8); LYMPHOCYTES # (AUTO) 0.4 K/uL (0.8-4.8); LYMPHOCYTES % (AUTO) 8.3 % (20.0-44.0); MEAN CORPUSCULAR HEMOGLOBIN 23 PG (26.0-33.0); MEAN CORPUSCULAR HGB CONC 33 g/dl (31.0-36.0); MEAN CORPUSCULAR VOLUME 71 fL (82-100); MONOCYTES # (AUTO) 0.4 K/uL (0.1-1.30); MONOCYTES % (AUTO) 7.2 % (2.0-12.0); NEUTROPHILS # (AUTO) 4.6 K/uL (1.8-8.9); NEUTROPHILS % (AUTO) 84.5 % (43.0-81.0); PLATELET COUNT (AUTO) 180 K/uL (150-450); RED BLOOD CELL COUNT(AUTO) 4.13 MIL/uL (4.0-5.2); RED CELL DISTRIBUTION WIDTH 18.1 % (11.5-15.0); WHITE BLOOD COUNT (AUTO) 5.4 K/uL (4.3-11.0)
[2024-07-04 06:43] LABS: CALCIUM, SERUM 8.3 mg/dL (8.5-10.1); CARBON DIOXIDE 36 mmol/L (21-32); CHLORIDE 100 mmol/L (98-107); CREATININE 0.3 mg/dL (0.6-1.3); GLUCOSE 123 mg/dL (74-106); POTASSIUM 4.4 mmol/L (3.5-5.1); SODIUM SERUM 140 mmol/L (136-145); UREA NITROGEN, BLOOD 26 mg/dL (7-18)
[2024-07-04 08:22] LABS: ABG BASE EXCESS 8.9 mmol/L (-2.0-3.0); ABG OXYGEN SATURATION 94.8 % (94.0-98.0); ABG PCO2 61.1 mmHg (32.0-45.0); ABG PH 7.383 (7.350-7.450); ABG PO2 73.8 mmHg (83.0-108.0); ABG TOTAL HEMOGLOBIN 10.4 G/dL (12.0-16.0); COHb 0.3 % (0.5-1.5); MetHb 0.4 % (0.0-1.5); O2Hb 94.1 % (94.0-97.0); SITE, ABG RIGHT RADIAL
[2024-07-05] VITALS (13 sets, daily range): BP systolic 111–128; BP diastolic 60–73; TEMP 98.2–99.1; O2SAT 96–100
[2024-07-06] VITALS (11 sets, daily range): BP systolic 114–146; BP diastolic 62–73; TEMP 97.5–99; O2SAT 94–99
[2024-07-06] MEDS ORDERED: LEVO50TA8 PO (11:27)
[2024-07-06] MEDS ORDERED: CEFE1FRO IV (11:27)
== END 2024-07-06 18:01 | DRG 208 ==
LOC: ER 21:05 → ICU 23:28 → TELE-TD 07-04 18:38 → TELE1 07-05 09:37 → MEDSG1 07-06 14:49
PROVIDERS: ADMIT Nurse Practitioner Acute Care; ATTEND Internal Medicine
PROC: 5A1945Z Respiratory Ventilation, 24-96 Consecutive Hours (ICD-10-PCS; principal; 2024-06-30)
PROC: 0BH17EZ Insertion of Endotracheal Airway into Trachea, Via Natural or Artificial Opening (ICD-10-PCS; 2024-06-30)
PROC: 5A09357 Assistance with Respiratory Ventilation, Less than 24 Consecutive Hours, Continuous Positive Airway Pressure (ICD-10-PCS; 2024-06-30)
PROC: 5A09357 Assistance with Respiratory Ventilation, Less than 24 Consecutive Hours, Continuous Positive Airway Pressure (ICD-10-PCS; 2024-07-03)
PROC: 5A09357 Assistance with Respiratory Ventilation, Less than 24 Consecutive Hours, Continuous Positive Airway Pressure (ICD-10-PCS; 2024-07-06)
DX: J15.69 Pneumonia due to other Gram-negative bacteria (principal); J96.21 Acute and chronic respiratory failure with hypoxia; I50.33 Acute on chronic diastolic (congestive) heart failure; G92.8 Other toxic encephalopathy; J96.22 Acute and chronic respiratory failure with hypercapnia; J44.0 Chronic obstructive pulmonary disease with (acute) lower respiratory infection; J44.1 Chronic obstructive pulmonary disease with (acute) exacerbation; E66.2 Morbid (severe) obesity with alveolar hypoventilation; I42.9 Cardiomyopathy, unspecified; Z68.41 Body mass index [BMI] 40.0-44.9, adult; I11.0 Hypertensive heart disease with heart failure; E11.9 Type 2 diabetes mellitus without complications; Z20.822 Contact with and (suspected) exposure to COVID-19; E03.9 Hypothyroidism, unspecified; D64.9 Anemia, unspecified; E78.5 Hyperlipidemia, unspecified; Z87.19 Personal history of other diseases of the digestive system; Z87.11 Personal history of peptic ulcer disease; K58.9 Irritable bowel syndrome, unspecified; Z96.642 Presence of left artificial hip joint; Z99.81 Dependence on supplemental oxygen; Z98.890 Other specified postprocedural states; Z91.041 Radiographic dye allergy status; Z91.013 Allergy to seafood; Z91.018 Allergy to other foods; Z91.048 Other nonmedicinal substance allergy status; Z79.01 Long term (current) use of anticoagulants; Z79.4 Long term (current) use of insulin; Z79.51 Long term (current) use of inhaled steroids; Z79.899 Other long term (current) drug therapy; Z66 Do not resuscitate; Y95 Nosocomial condition; K21.9 Gastro-esophageal reflux disease without esophagitis; K29.70 Gastritis, unspecified, without bleeding; K57.90 Diverticulosis of intestine, part unspecified, without perforation or abscess without bleeding; F03.90 Unspecified dementia, unspecified severity, without behavioral disturbance, psychotic disturbance, mood disturbance, and anxiety; J15.9 Unspecified bacterial pneumonia; R79.89 Other specified abnormal findings of blood chemistry
CPT/HCPCS: 31720; 36415; 36600; 70450-TC; 71045-TC; 80048-TC; 80076-TC; 80202-TC; 82140-TC; 82728-TC; 82803-TC; 82962-TC; 83540-TC; 83605-TC; 83735-TC; 84100-TC; 84439-TC; 84443-TC; 84478-TC; 84484-TC; 85025-TC; 85730-TC; 87040-TC; 87081-TC; 92526; 92611-TC; 93307-TC; 94003-TC; 94660; 94760-TC; 94762-TC; 94799-TC; A4223; A9563; G0378; J0330; J0692; J1650; J1815; J2405; J2470; J2919; J3370; J3490; J7030; J7040; J7050; J7060